=== PATIENT | female | born 1980 ===

== ENCOUNTER 2020-11-13 11:57 | Inpatient (IN) | payer MEDICAID, OTHER ==
[2020-11-13] MEDS ORDERED: LACTATED RINGERS 1,000 ML IV ONE (13:18)
[2020-11-13 13:54] LABS: Bacteria,Urine 1+ /HPF (Negative); Bilirubin,Urine NEG (Negative); Blood,Urine NEG (Negative); Color,Urine Yellow (Yellow); Mucus,Urine 2+ /HPF; Urobilinogen,Urine < 2.0 mg/dL (<2.0)
--- NOTE | 2020-11-13 14:25 | History and Physical Report ---
History of Present Illness Date of examination: 11/13/20 Date of admission: 11/13/20 Chief complaint: elevated blood pressure History of present illness: The patient is a 40-year-old woman 4 para 3-0-0-3 patient. Last menstrual period 04/23/2020 EDC 01/28/2021 ultrasound EDC is 02/13/2021 [place] [facility] [place] approximately 15 visits. She has had 3 other vaginal deliveries she was sent to the hospital because of elevated blood pressure and 2+ protein in her urine at the clinic her blood type was a positive antibody screen was negative hematocrit was 37.7% Pap smear was normal rubella was immune VDRL was negative urine culture was negative hepatitis B was also negative. Her chlamydia and gonorrhea tests were negative. She had a test for cystic fibrosis that was negative. Her Fragile X test was intermediate her MSAFP test was also negative. Her family medical history is positive for diabetes in her mother. She has a history of anemia during . The only time she was hospitalized was for deliveries in the past. Her maternal AFP was negative her fasting glucose was 95 1 hour glucose was 162-hour glucose was 106. Chlamydia and gonorrhea tests were negative HPV in the cervix was not detected Pap smear was normal antibody screen showed no antibodies blood type a positive RPR nonreactive hepatitis B was nonreactive rubella was immune. The patient was sent to the hospital today because of elevated blood pressure and 2+ protein in the urine for evaluation for -induced hypertension. Past History Past Medical History: other (3 vaginal deliveries.) Past Surgical History: no surgical history Family/Genetic History: diabetes Social history: - Obstetrical History Expected Date of Delivery: 01/28/21 Actual Gestation: 29 Week(s) 1 Day(s) : 4 Para: 3 Hx # Term Pregnancies: 3 Number of Pregnancies: 0 Spontaneous Abortions: 0 Induced : 0 Number of Living Children: 3 Medications and Allergies Allergies Allergy/AdvReac Type Severity Reaction Status Date / Time No Known Allergies Allergy Verified 11/13/20 13:18 Active Meds: Active Medications Lactated Ringer's (Lactated Ringers) 1,000 mls @ 125 mls/hr IV DIRECT SKYE Review of Systems All systems: negative - Vital Signs Vital signs: Vital Signs Pulse BP 50 L 146/87 11/13/20 12:43 07/13/21 12:43 Temp Pulse Resp BP Pulse Ox 98.2 F 50 L 20 163/91 99 11/13/20 13:21 11/13/20 14:15 11/13/20 13:21 11/13/20 14:15 11/13/20 13:53 - Physical Exam Breasts: Positive: normal Cardiovascular: Regular rate, Normal S1, Normal S2 Abdomen: Positive: normal appearance, soft, normal bowel sounds. Negative: distention, tenderness Genitourinary (Female): Positive: normal external genitalia, normal perenium Vulva: both: normal Vagina: Positive: normal moisture. Negative: discharge Cervix: Negative: lesion, discharge Uterus: Positive: normal size, enlarged, normal contour Adnexa: both: normal Anus/Rectum: Positive: normal perianal skin, heme negative. Negative: rectal mass, hemorrhoids Extremities: Deep Tendon Reflex Grade: Normal +2 - Obstetrical FHR: category 1 Uterine Contraction Monitor Mode: External Cervical Dilatation: 0 Cervical Effacement Percentage: 50 station: -4 Uterine Contraction Frequency (min): q5m Uterine Contraction Duration: 1 min Uterine Contraction Pattern: Irregular Uterine Tone Measurement Phase: Resting Uterine Contraction Intensity: Mild Results All other labs normal. Assessment and Plan - Patient Problems (1) PIH ( induced hypertension) Current Visit: Yes Status: Acute
[2020-11-13 14:52] LABS: Hematocrit 37.4 % (30.3-42.9); Hemoglobin 12.5 gm/dl (10.1-14.3); Mean Corpuscular HGB Conc 33 % (30-34); Mean Corpuscular Volume 88 fl (79-97); Platelet Count 203 K/mm3 (140-440); Red Blood Count 4.24 M/mm3 (3.65-5.03); Red Cell Distribution Width 14.3 % (13.2-15.2)
[2020-11-13 15:09] LABS: Alanine Aminotransferase 10 units/L (7-56); Uric Acid 4.6 mg/dL (3.5-7.6)
--- NOTE | 2020-11-13 15:57 | Ultrasound Report ---
ULTRASOUND OBSTETRIC LIMITED ULTRASOUND BIOPHYSICAL PROFILE INDICATION / CLINICAL INFORMATION: to assess well-being. COMPARISON: None available. FINDINGS: BREATHING MOVEMENT = 0 GROSS BODY MOVEMENT = 2 TONE = 2 QUALITATIVE AMNIOTIC FLUID VOLUME = 2 TOTAL BIOPHYSICAL SCORE = 6/8 AMNIOTIC FLUID INDEX (cm) = 9.3 PRESENTATION: Transverse. head to maternal right side. HEART RATE (beats per minute): 146 ADDITIONAL FINDINGS: The placenta is grade II and located along the fundus. IMPRESSION: 1. Biophysical Score = 6/8 2. Additional findings as above. Signer Name: Gus Lewis MD Signed: 11/13/2020 3:52 PM Workstation Name: [id number]
[2020-11-13] MEDS: LACTATED RINGERS 1,000 ML IV SCH (18:35)
[2020-11-13] MEDS ORDERED: hydrOXYzine PAMOATE 25 MG CAP PO ONE (19:29)
[2020-11-13] MEDS: hydrALAZINE 20 MG/1 ML INJ IV PRN ×2 (19:54→20:51)
[2020-11-13] MEDS: BETAMET ACET/BETAMET NA PH 6 MG/ML INJ 5 ML MDV IM SCH (21:35)
[2020-11-13] MEDS ORDERED: hydrALAZINE 20 MG/1 ML INJ IV PRN (22:00)
[2020-11-14] MEDS: LACTATED RINGERS 1,000 ML IV SCH ×3 (01:36→22:14)
--- NOTE | 2020-11-14 10:40 | Progress Note ---
Assessment and Plan - Patient Problems (1) PIH ( induced hypertension) Current Visit: Yes Status: Acute Plan to address problem: Patient with PIH at 26 weeks, currently undergoing BP evaluation given elevated BPs in clinic --PIH labs wnl, pending 24H TP. To be completed at 1300 today --Consult APA for further recommendations --celestone x 2, next dose at 2100 --Continue labetolol 300mg BID, titrate as indicated --Continue inpatient management for now --Delivery if indicated for PIH or maternal/ care as indicated Subjective - Subjective Date of service: 11/14/20 Principal diagnosis: preeclampsia Interval history: Patient doing well. Denies labor complaints or PIH symptoms. Concerned about the outcome of . +FM. Objective - Vital Signs Vital Signs: Vital Signs - 12hr 11/13/20 11/13/20 11/13/20 22:40 22:43 22:45 Temperature Pulse Rate 79 83 81 Respiratory Rate Blood Pressure 139/77 O2 Sat by Pulse 97 97 Oximetry 11/13/20 11/13/20 11/13/20 22:50 22:55 23:01 Temperature Pulse Rate 75 79 87 Respiratory Rate Blood Pressure O2 Sat by Pulse 97 97 98 Oximetry 11/13/20 11/13/20 11/13/20 23:05 23:11 23:13 Temperature Pulse Rate 81 78 77 Respiratory Rate Blood Pressure 129/70 O2 Sat by Pulse 98 97 Oximetry 11/13/20 11/13/20 11/13/20 23:16 23:20 23:25 Temperature Pulse Rate 73 74 73 Respiratory Rate Blood Pressure O2 Sat by Pulse 98 98 98 Oximetry 11/13/20 11/13/20 11/13/20 23:30 23:36 23:40 Temperature Pulse Rate 74 75 78 Respiratory Rate Blood Pressure O2 Sat by Pulse 98 98 97 Oximetry 11/13/20 11/13/20 11/13/20 23:43 23:45 23:51 Temperature Pulse Rate 76 81 70 Respiratory Rate Blood Pressure 143/74 O2 Sat by Pulse 98 98 Oximetry 11/13/20 11/14/20 11/14/20 23:56 00:01 00:05 Temperature Pulse Rate 69 67 80 Respiratory Rate Blood Pressure O2 Sat by Pulse 98 98 98 Oximetry 11/14/20 11/14/20 11/14/20 00:11 00:13 00:15 Temperature 96.9 F L Pulse Rate 65 67 Respiratory 18 Rate Blood Pressure 155/74 O2 Sat by Pulse 100 Oximetry 11/14/20 11/14/20 11/14/20 00:16 00:20 00:26 Temperature Pulse Rate 67 65 66 Respiratory Rate Blood Pressure O2 Sat by Pulse 100 100 100 Oximetry 11/14/20 11/14/20 11/14/20 00:30 00:36 00:41 Temperature Pulse Rate 68 62 62 Respiratory Rate Blood Pressure O2 Sat by Pulse 100 100 100 Oximetry 11/14/20 11/14/20 11/14/20 00:43 00:44 00:46 Temperature Pulse Rate 65 62 60 Respiratory Rate Blood Pressure 175/83 162/78 O2 Sat by Pulse 100 Oximetry 11/14/20 11/14/20 11/14/20 00:48 00:51 00:56 Temperature Pulse Rate 65 68 71 Respiratory Rate Blood Pressure 153/75 O2 Sat by Pulse 99 98 Oximetry 11/14/20 11/14/20 11/14/20 01:01 01:06 01:11 Temperature Pulse Rate 70 73 69 Respiratory Rate Blood Pressure O2 Sat by Pulse 97 97 97 Oximetry 11/14/20 11/14/20 11/14/20 01:14 01:16 01:21 Temperature Pulse Rate 65 66 67 Respiratory Rate Blood Pressure 149/71 O2 Sat by Pulse 97 98 Oximetry 11/14/20 11/14/20 11/14/20 01:25 01:31 01:36 Temperature Pulse Rate 64 66 68 Respiratory Rate Blood Pressure O2 Sat by Pulse 98 97 97 Oximetry 11/14/20 11/14/20 11/14/20 01:41 01:43 01:46 Temperature Pulse Rate 68 72 70 Respiratory Rate Blood Pressure 139/68 O2 Sat by Pulse 97 97 Oximetry 11/14/20 11/14/20 11/14/20 01:51 01:56 02:01 Temperature Pulse Rate 72 67 72 Respiratory Rate Blood Pressure O2 Sat by Pulse 97 97 97 Oximetry 11/14/20 11/14/20 11/14/20 02:06 02:10 02:13 Temperature Pulse Rate 69 69 80 Respiratory Rate Blood Pressure 134/75 O2 Sat by Pulse 97 97 Oximetry 11/14/20 11/14/20 11/14/20 02:16 02:21 02:26 Temperature Pulse Rate 72 67 66 Respiratory Rate Blood Pressure O2 Sat by Pulse 97 97 97 Oximetry 11/14/20 11/14/20 11/14/20 02:30 02:36 02:41 Temperature Pulse Rate 69 71 68 Respiratory Rate Blood Pressure O2 Sat by Pulse 97 97 97 Oximetry 11/14/20 11/14/20 11/14/20 02:43 02:45 02:50 Temperature Pulse Rate 75 77 72 Respiratory Rate Blood Pressure 139/69 O2 Sat by Pulse 97 97 Oximetry 11/14/20 11/14/20 11/14/20 02:56 03:01 03:06 Temperature Pulse Rate 67 71 69 Respiratory Rate Blood Pressure O2 Sat by Pulse 97 97 97 Oximetry 11/14/20 11/14/20 11/14/20 03:11 03:13 03:16 Temperature Pulse Rate 68 70 72 Respiratory Rate Blood Pressure 142/75 O2 Sat by Pulse 97 97 Oximetry 11/14/20 11/14/20 11/14/20 03:20 03:26 03:30 Temperature Pulse Rate 72 71 70 Respiratory Rate Blood Pressure O2 Sat by Pulse 97 98 97 Oximetry 11/14/20 11/14/20 11/14/20 03:36 03:41 03:43 Temperature Pulse Rate 91 H 72 76 Respiratory Rate Blood Pressure 128/72 O2 Sat by Pulse 97 97 Oximetry 11/14/20 11/14/20 11/14/20 03:46 03:51 03:55 Temperature Pulse Rate 76 68 76 Respiratory Rate Blood Pressure O2 Sat by Pulse 98 97 97 Oximetry 11/14/20 11/14/20 11/14/20 04:00 04:06 04:11 Temperature Pulse Rate 80 73 80 Respiratory Rate Blood Pressure O2 Sat by Pulse 97 97 98 Oximetry 11/14/20 11/14/20 11/14/20 04:13 04:16 04:21 Temperature Pulse Rate 68 75 69 Respiratory Rate Blood Pressure 133/70 O2 Sat by Pulse 97 98 Oximetry 11/14/20 11/14/20 11/14/20 04:26 04:31 04:36 Temperature Pulse Rate 69 72 78 Respiratory Rate Blood Pressure O2 Sat by Pulse 97 97 97 Oximetry 11/14/20 11/14/20 11/14/20 04:41 04:43 04:46 Temperature Pulse Rate 68 71 69 Respiratory Rate Blood Pressure 133/72 O2 Sat by Pulse 98 98 Oximetry 0711/14/20 11/14/20 04:51 04:56 05:01 Temperature Pulse Rate 65 68 68 Respiratory Rate Blood Pressure O2 Sat by Pulse 98 97 97 Oximetry 11/14/20 11/14/20 11/14/20 05:06 05:11 05:13 Temperature Pulse Rate 70 70 81 Respiratory Rate Blood Pressure 137/74 O2 Sat by Pulse 97 97 Oximetry 11/14/20 11/14/20 11/14/20 05:16 05:21 05:26 Temperature Pulse Rate 70 75 71 Respiratory Rate Blood Pressure O2 Sat by Pulse 97 97 97 Oximetry 11/14/20 11/14/20 11/14/20 05:33 05:34 05:39 Temperature 98.2 F Pulse Rate 66 70 Respiratory 18 Rate Blood Pressure O2 Sat by Pulse 98 97 Oximetry 11/14/20 11/14/20 11/14/20 05:42 05:44 05:49 Temperature Pulse Rate 66 64 69 Respiratory Rate Blood Pressure 143/82 O2 Sat by Pulse 94 97 97 Oximetry 11/14/20 11/14/20 11/14/20 05:54 05:59 06:04 Temperature Pulse Rate 67 68 64 Respiratory Rate Blood Pressure O2 Sat by Pulse 97 96 97 Oximetry 11/14/20 11/14/20 11/14/20 06:09 06:12 06:13 Temperature Pulse Rate 66 63 63 Respiratory Rate Blood Pressure 135/80 O2 Sat by Pulse 97 94 Oximetry 11/14/20 11/14/20 11/14/20 06:14 06:19 06:24 Temperature Pulse Rate 65 62 64 Respiratory Rate Blood Pressure O2 Sat by Pulse 96 97 97 Oximetry 11/14/20 11/14/20 11/14/20 06:29 06:34 06:39 Temperature Pulse Rate 61 62 63 Respiratory Rate Blood Pressure O2 Sat by Pulse 97 97 97 Oximetry 11/14/20 11/14/20 11/14/20 06:43 06:44 06:49 Temperature Pulse Rate 60 62 59 L Respiratory Rate Blood Pressure 145/78 O2 Sat by Pulse 97 97 Oximetry 11/14/20 11/14/20 11/14/20 06:54 06:59 07:04 Temperature Pulse Rate 62 64 58 L Respiratory Rate Blood Pressure O2 Sat by Pulse 97 97 97 Oximetry 11/14/20 11/14/20 11/14/20 07:09 07:12 07:14 Temperature Pulse Rate 62 54 L 61 Respiratory Rate Blood Pressure 140/80 O2 Sat by Pulse 97 98 Oximetry 11/14/20 11/14/20 11/14/20 07:19 07:24 07:29 Temperature 98.1 F Pulse Rate 61 63 58 L Respiratory 16 Rate Blood Pressure O2 Sat by Pulse 98 98 98 Oximetry 11/14/20 11/14/20 11/14/20 07:33 07:39 07:43 Temperature Pulse Rate 56 L 68 57 L Respiratory Rate Blood Pressure 153/86 O2 Sat by Pulse 97 98 Oximetry 11/14/20 11/14/20 11/14/20 07:44 07:49 07:54 Temperature Pulse Rate 57 L 62 75 Respiratory Rate Blood Pressure O2 Sat by Pulse 98 97 97 Oximetry 11/14/20 11/14/20 11/14/20 07:59 08:04 08:09 Temperature Pulse Rate 60 72 55 L Respiratory Rate Blood Pressure O2 Sat by Pulse 97 97 97 Oximetry 11/14/20 11/14/20 11/14/20 08:13 08:14 08:19 Temperature Pulse Rate 62 57 L 84 Respiratory Rate Blood Pressure 176/90 O2 Sat by Pulse 97 98 Oximetry 11/14/20 11/14/20 11/14/20 08:24 08:29 08:34 Temperature Pulse Rate 74 86 82 Respiratory Rate Blood Pressure O2 Sat by Pulse 98 99 98 Oximetry 11/14/20 11/14/20 11/14/20 08:39 08:43 08:44 Temperature Pulse Rate 71 71 62 Respiratory Rate Blood Pressure 171/91 O2 Sat by Pulse 99 99 Oximetry 11/14/20 11/14/20 11/14/20 08:49 08:54 08:59 Temperature Pulse Rate 64 70 70 Respiratory Rate Blood Pressure O2 Sat by Pulse 97 98 98 Oximetry 11/14/20 11/14/20 11/14/20 09:04 09:09 09:13 Temperature Pulse Rate 78 71 72 Respiratory Rate Blood Pressure 152/83 O2 Sat by Pulse 99 98 Oximetry 11/14/20 11/14/20 11/14/20 09:14 09:19 09:24 Temperature Pulse Rate 78 71 69 Respiratory Rate Blood Pressure O2 Sat by Pulse 98 97 98 Oximetry 11/14/20 11/14/20 11/14/20 09:29 09:31 09:34 Temperature Pulse Rate 71 79 77 Respiratory Rate Blood Pressure 152/83 O2 Sat by Pulse 97 99 Oximetry 11/14/20 11/14/20 11/14/20 09:39 09:43 09:49 Temperature Pulse Rate 75 72 73 Respiratory Rate Blood Pressure 147/81 O2 Sat by Pulse 98 98 98 Oximetry 11/14/20 11/14/20 11/14/20 09:54 09:59 10:04 Temperature Pulse Rate 70 68 67 Respiratory Rate Blood Pressure O2 Sat by Pulse 97 97 97 Oximetry 11/14/20 11/14/20 11/14/20 10:09 10:13 10:14 Temperature Pulse Rate 79 73 71 Respiratory Rate Blood Pressure 156/86 O2 Sat by Pulse 98 98 Oximetry 11/14/20 11/14/20 11/14/20 10:19 10:24 10:29 Temperature Pulse Rate 74 73 79 Respiratory Rate Blood Pressure O2 Sat by Pulse 98 98 97 Oximetry 11/14/20 10:34 Temperature Pulse Rate 80 Respiratory Rate Blood Pressure O2 Sat by Pulse 97 Oximetry - Exam Cardiovascular: Regular rate Lungs: Clear to auscultation Abdomen: Present: normal appearance, normal bowel sounds Uterus: Present: fundal height above umbilicus FHR: category 1 Uterine Contraction Monitor Mode: External Uterine Contraction Pattern: Absent Extremities: normal - Labs Labs: Abnormal Labs 11/13/20 14:00 Creatinine 0.3 L Laboratory Results - last 24 hr 11/13/20 11/13/20 11/13/20 14:00 14:00 14:00 WBC 9.4 RBC 4.24 Hgb 12.5 Hct 37.4 MCV 88 MCH 29 MCHC 33 RDW 14.3 Plt Count 203 Creatinine 0.3 L Estimated GFR > 60 Uric Acid 4.6 AST 17 ALT 10 Lactate Dehydrogenase 160 Urine Color Urine Turbidity Urine pH Ur Specific Skipwith Urine Protein Urine Glucose (UA) Urine Ketones Urine Blood Urine Nitrite Urine Bilirubin Urine Urobilinogen Ur Leukocyte Esterase Urine WBC (Auto) Urine RBC (Auto) U Epithel Cells (Auto) Urine Bacteria (Auto) Urine Mucus Blood Type A POSITIVE Antibody Screen Negative 11/13/20 Unknown WBC RBC Hgb Hct MCV MCH MCHC RDW Plt Count Creatinine Estimated GFR Uric Acid AST ALT Lactate Dehydrogenase Urine Color Yellow Urine Turbidity Clear Urine pH 7.0 Ur Specific Skipwith 1.021 Urine Protein 100 mg/dl Urine Glucose (UA) Neg Urine Ketones Neg Urine Blood Neg Urine Nitrite Neg Urine Bilirubin Neg Urine Urobilinogen < 2.0 Ur Leukocyte Esterase Neg Urine WBC (Auto) 1.0 Urine RBC (Auto) 2.0 U Epithel Cells (Auto) 5.0 Urine Bacteria (Auto) 1+ Urine Mucus 2+ Blood Type Antibody Screen
[2020-11-14 14:16] LABS: Creatinine,Urine 41.5 mg/dL (0.1-20.0); Protein/Creatinine Ratio,Urine 0.41
--- NOTE | 2020-11-14 15:16 | Ultrasound Report ---
ULTRASOUND OBSTETRIC LIMITED ULTRASOUND BIOPHYSICAL PROFILE INDICATION / CLINICAL INFORMATION: heart rate deceleration. COMPARISON: Limited OB ultrasound from 11/13/2020. FINDINGS: BREATHING MOVEMENT = 0 GROSS BODY MOVEMENT = 2 TONE = 2 QUALITATIVE AMNIOTIC FLUID VOLUME = 2 TOTAL BIOPHYSICAL SCORE = 6/8 AMNIOTIC FLUID INDEX (cm) = 12.7 PRESENTATION: Transverse. head is located to the maternal right. HEART RATE (beats per minute): 143 ADDITIONAL FINDINGS: Multiple probable uterine fibroids are seen measuring up to 2.9 cm. IMPRESSION: 1. Biophysical Score = 6/8 2. Additional findings as above. Signer Name: Gus Lewis MD Signed: 11/14/2020 3:11 PM Workstation Name: [id number]
--- NOTE | 2020-11-14 18:30 | Consultation ---
History of Present Illness Consult date: 11/14/20 Reason for consult: other (Newly elevated blood pressure) History of present illness: Mrs. Yomaira Walters is a 40-year-old [id number] patient at 26 week by ultrasound with EDC 02/13/2021 seen in consultation following hospital admission for elevated blood pressure and 2+ protein on urine dip at routine visit. Since her admission, she has been noted to have severely elevated blood pressures for which she is now on Labetalol 300 mg BID. She denies any headaches, visual changes, RUQ pain, or nausea. On my evaluation, she denies any additional concerns. This is significant for early and consistent care and Inte rmediate Fragile X carrier screening. Past History Past Medical History: other (3 vaginal deliveries.) Past Surgical History: no surgical history Family/Genetic History: diabetes - Obstetrical History : 4 Medications and Allergies Allergies Allergy/AdvReac Type Severity Reaction Status Date / Time No Known Allergies Allergy Verified 11/13/20 13:18 Home Medications Medication Instructions Recorded Confirmed Last Taken Type No Known Home Medications [No 11/14/20 11/14/20 Unknown History Reported Home Medications] Active Meds: Active Medications Betamethasone Acet/Betameth SodPhos (Betamet Acet/Betamet Na Ph 6 Mg/Ml Inj 5 Ml Mdv) 12 mg IM Q24H SKYE Stop: 11/14/20 22:01 Last Admin: 11/13/20 21:35 Dose: 12 mg Documented by: Hydralazine HCl (Hydralazine 20 Mg/1 Ml Inj) 10 mg IV Q30MIN PRN PRN Reason: Blood Pressure Stop: 11/14/20 23:59 Last Admin: 11/13/20 20:51 Dose: 10 mg Documented by: Lactated Ringer's (Lactated Ringers) 1,000 mls @ 125 mls/hr IV DIRECT SKYE Last Admin: 11/14/20 09:31 Dose: 125 mls/hr Documented by: Labetalol HCl (Labetalol 200 Mg Tab) 300 mg PO BID SKYE Last Admin: 11/14/20 09:31 Dose: 300 mg Documented by: Review of Systems All systems: negative Cardiovascular: high blood pressure - Vital Signs Vital signs: Vital Signs Pulse BP 50 L 146/87 11/13/20 12:43 11/13/20 12:43 Temp Pulse Resp BP Pulse Ox 97.9 F 68 16 169/77 97 11/14/20 17:43 11/14/20 18:23 11/14/20 17:43 11/14/20 18:13 11/14/20 18:23 - Physical Exam Cardiovascular: Regular rate Lungs: Positive: Clear to auscultation Abdomen: Positive: other (Gravid, NT) - Obstetrical FHR: other (140s, + accelerations, occassional variable decelerations) Uterine Contraction Pattern: Absent Results Result Diagrams: 11/13/20 14:00 11/13/20 14:00 Abnormal lab results 11/14/20 Range/Units 13:30 Urine Creatinine 41.5 H (0.1-20.0) mg/dL Ur Total Protein 24 Hr 581.74 H (2-200) mg/dL Urine Total Protein 17 H (5-11.8) mg/dL All other labs normal. Assessment and Plan - Patient Problems (1) PIH ( induced hypertension) Current Visit: Yes Status: Acute Qualifiers: Trimester: second trimester Qualified Code(s): O13.2 - Gestational [-induced] hypertension without significant proteinuria, second trimester Plan to address problem: 24 hour urine protein with 581 mg protein consistent with preeclampsia. Given the severe blood pressure elevations noted on multiple occasions since her admission, she meets criteria for preeclampsia with severe features. Recommend 1. Inpatient care until delivery. Delivery goal is 34 weeks however proceed with delivery for refractory blood pressures not responding to IV antihypertensive treatment, si/sx of HELLP, or any signs of nonreassuring well being 2. Continue Labetalol 300 mg BID. Titrate aggressively as needed given her early gestational age. May also add Procardia as a 2nd agent after maxing out Labetalol in order to prolong safely in the absence of delivery criteria listed above 3. Continue continuous monitoring until decelerations improve, then may modify schedule at the discretion of primary OB provider or TID. Repeat NST tomorrow as today's BPP 6/8 (minus 2 for breathing) 4. Perform serial preeclampsia labs. Repeat 24 hour urine protein is not warranted to evaluate for worsening disease as the diagnosis has been made and worsening protein has not been found to impact outcomes 5. Complete betamethasone course 6. NICU consultation to discuss risks of prematurity 7. Magnesium for neuroprophylaxis prior to delivery if delivery is indicated < 32 weeks 8. Will continue to follow. Please do not hesitate to contact us with any additional questions.
[2020-11-14] MEDS: hydrALAZINE 20 MG/1 ML INJ IV PRN (20:01)
[2020-11-14] MEDS: BETAMET ACET/BETAMET NA PH 6 MG/ML INJ 5 ML MDV IM SCH (21:35)
[2020-11-15] MEDS: LACTATED RINGERS 1,000 ML IV SCH ×2 (07:22→17:01)
--- NOTE | 2020-11-15 07:54 | Progress Note ---
Assessment and Plan - Patient Problems (1) PIH ( induced hypertension) Current Visit: Yes Status: Acute Qualifiers: Trimester: second trimester Qualified Code(s): O13.2 - Gestational [-induced] hypertension without significant proteinuria, second trimester Plan to address problem: KEEP PT ON LABETALOL AND HOSP UNTIL SHE DELIVERS. Subjective Date of service: 11/15/20 Principal diagnosis: preeclampsia Interval history: 27 wks iup with pre-eclampsia . 24 hr urine protein >500mgs.[facility] CONSULTED AND AGREE TO KEP PT HOSP UNTIL SHE DELIVERS. BP STABLE ON MAG. Objective - Constitutional Vitals: Vital Signs - 12hr 11/14/20 11/14/20 11/14/20 19:55 19:59 20:00 Pulse Rate 63 62 65 Blood Pressure 184/87 O2 Sat by Pulse 97 97 Oximetry 11/14/20 11/14/20 11/14/20 20:01 20:05 20:07 Pulse Rate 64 68 Blood Pressure 184/87 168/79 O2 Sat by Pulse 98 Oximetry 11/14/20 11/14/20 11/14/20 20:10 20:13 20:15 Pulse Rate 70 84 87 Blood Pressure 161/83 O2 Sat by Pulse 97 97 Oximetry 11/14/20 11/14/20 11/14/20 20:20 20:25 20:30 Pulse Rate 75 75 73 Blood Pressure O2 Sat by Pulse 97 98 97 Oximetry 11/14/20 11/14/20 11/14/20 20:35 20:40 20:43 Pulse Rate 78 87 79 Blood Pressure 154/79 O2 Sat by Pulse 97 97 Oximetry 11/14/20 11/14/20 11/14/20 20:45 20:50 20:55 Pulse Rate 81 81 80 Blood Pressure O2 Sat by Pulse 98 97 98 Oximetry 11/14/20 11/14/20 11/14/20 21:00 21:05 21:10 Pulse Rate 71 83 79 Blood Pressure O2 Sat by Pulse 98 98 98 Oximetry 11/14/20 11/14/20 11/14/20 21:13 21:19 21:24 Pulse Rate 70 84 72 Blood Pressure 135/74 O2 Sat by Pulse 98 98 Oximetry 11/14/20 11/14/20 11/14/20 21:29 21:34 21:39 Pulse Rate 87 75 77 Blood Pressure O2 Sat by Pulse 98 98 99 Oximetry 11/14/20 11/14/20 11/14/20 21:43 21:44 21:49 Pulse Rate 67 68 70 Blood Pressure 138/73 O2 Sat by Pulse 98 97 Oximetry 11/14/20 11/14/20 11/14/20 21:54 21:59 22:04 Pulse Rate 78 79 72 Blood Pressure O2 Sat by Pulse 98 98 98 Oximetry 11/14/20 11/14/20 11/14/20 22:09 22:14 22:19 Pulse Rate 76 69 74 Blood Pressure 154/76 O2 Sat by Pulse 97 95 98 Oximetry 11/14/20 11/14/20 11/14/20 22:24 22:29 22:34 Pulse Rate 90 72 68 Blood Pressure O2 Sat by Pulse 98 97 97 Oximetry 11/14/20 11/14/20 11/14/20 22:39 22:43 22:44 Pulse Rate 78 67 85 Blood Pressure 135/70 O2 Sat by Pulse 97 96 Oximetry 11/14/20 11/14/20 11/14/20 22:49 22:54 22:59 Pulse Rate 68 63 86 Blood Pressure O2 Sat by Pulse 97 97 97 Oximetry 11/14/20 11/14/20 11/14/20 23:04 23:09 23:13 Pulse Rate 67 70 68 Blood Pressure 151/77 O2 Sat by Pulse 97 96 93 Oximetry 11/14/20 11/14/20 11/14/20 23:14 23:19 23:24 Pulse Rate 70 70 68 Blood Pressure O2 Sat by Pulse 96 96 96 Oximetry 11/14/20 11/14/20 11/14/20 23:29 23:34 23:39 Pulse Rate 67 69 84 Blood Pressure O2 Sat by Pulse 96 96 97 Oximetry 11/14/20 11/14/20 11/14/20 23:43 23:44 23:49 Pulse Rate 62 66 64 Blood Pressure 152/76 O2 Sat by Pulse 97 97 Oximetry 11/14/20 11/14/20 11/15/20 23:54 23:59 00:04 Pulse Rate 66 68 68 Blood Pressure O2 Sat by Pulse 97 97 97 Oximetry 11/15/20 11/15/20 11/15/20 00:09 00:13 00:14 Pulse Rate 73 68 66 Blood Pressure 135/64 O2 Sat by Pulse 98 98 Oximetry 11/15/20 11/15/20 11/15/20 00:19 00:24 00:29 Pulse Rate 66 68 61 Blood Pressure O2 Sat by Pulse 97 97 98 Oximetry 11/15/20 11/15/20 11/15/20 00:34 00:39 00:43 Pulse Rate 72 70 71 Blood Pressure 146/70 O2 Sat by Pulse 95 97 Oximetry 11/15/20 11/15/20 11/15/20 00:44 00:49 00:54 Pulse Rate 69 79 85 Blood Pressure O2 Sat by Pulse 96 97 97 Oximetry 11/15/20 11/15/20 11/15/20 00:59 01:04 01:09 Pulse Rate 72 69 71 Blood Pressure O2 Sat by Pulse 95 97 97 Oximetry 11/15/20 11/15/20 11/15/20 01:13 01:14 01:19 Pulse Rate 70 73 68 Blood Pressure 146/69 O2 Sat by Pulse 98 98 Oximetry 11/15/20 11/15/20 11/15/20 01:24 01:29 01:34 Pulse Rate 68 68 72 Blood Pressure O2 Sat by Pulse 97 97 97 Oximetry 11/15/20 11/15/20 11/15/20 01:39 01:43 01:44 Pulse Rate 68 67 69 Blood Pressure 133/66 O2 Sat by Pulse 96 97 Oximetry 11/15/20 11/15/20 11/15/20 01:49 01:54 01:59 Pulse Rate 84 64 67 Blood Pressure O2 Sat by Pulse 97 96 98 Oximetry 11/15/20 11/15/20 11/15/20 02:04 02:09 02:13 Pulse Rate 69 69 68 Blood Pressure 134/65 O2 Sat by Pulse 97 97 Oximetry 11/15/20 11/15/20 11/15/20 02:14 02:19 02:24 Pulse Rate 64 68 67 Blood Pressure O2 Sat by Pulse 97 97 96 Oximetry 11/15/20 11/15/20 11/15/20 02:29 02:34 02:39 Pulse Rate 66 68 65 Blood Pressure O2 Sat by Pulse 96 96 96 Oximetry 11/15/20 11/15/20 11/15/20 02:42 02:43 02:44 Pulse Rate 64 74 66 Blood Pressure 153/77 O2 Sat by Pulse 94 97 Oximetry 11/15/20 11/15/20 11/15/20 02:49 02:54 02:59 Pulse Rate 64 63 67 Blood Pressure O2 Sat by Pulse 95 95 95 Oximetry 11/15/20 11/15/20 11/15/20 03:04 03:09 03:13 Pulse Rate 60 68 66 Blood Pressure 133/72 O2 Sat by Pulse 96 95 Oximetry 11/15/20 11/15/20 11/15/20 03:14 03:19 03:24 Pulse Rate 68 61 63 Blood Pressure O2 Sat by Pulse 96 96 96 Oximetry 11/15/20 11/15/20 11/15/20 03:29 03:34 03:39 Pulse Rate 65 68 65 Blood Pressure O2 Sat by Pulse 96 96 96 Oximetry 11/15/20 11/15/20 11/15/20 03:43 03:44 04:04 Pulse Rate 65 66 78 Blood Pressure 148/76 O2 Sat by Pulse 93 97 97 Oximetry 11/15/20 11/15/20 11/15/20 04:09 04:13 04:14 Pulse Rate 70 60 59 L Blood Pressure 145/74 O2 Sat by Pulse 96 97 Oximetry 11/15/20 11/15/20 11/15/20 04:19 04:24 04:29 Pulse Rate 69 56 L 60 Blood Pressure O2 Sat by Pulse 97 97 97 Oximetry 11/15/20 11/15/20 11/15/20 04:34 04:39 04:43 Pulse Rate 61 59 L 59 L Blood Pressure 146/74 O2 Sat by Pulse 98 96 Oximetry 11/15/20 11/15/20 11/15/20 04:44 04:49 04:54 Pulse Rate 61 62 60 Blood Pressure O2 Sat by Pulse 96 96 95 Oximetry 11/15/20 11/15/20 11/15/20 04:59 05:04 05:09 Pulse Rate 69 58 L 75 Blood Pressure O2 Sat by Pulse 95 95 94 Oximetry 11/15/20 11/15/20 11/15/20 05:13 05:14 05:19 Pulse Rate 60 60 59 L Blood Pressure 156/78 O2 Sat by Pulse 96 94 Oximetry 11/15/20 11/15/20 11/15/20 05:24 05:29 05:34 Pulse Rate 61 60 58 L Blood Pressure O2 Sat by Pulse 94 96 96 Oximetry 11/15/20 11/15/20 11/15/20 05:39 05:41 05:43 Pulse Rate 60 58 L 62 Blood Pressure 162/78 O2 Sat by Pulse 96 94 Oximetry 11/15/20 11/15/20 11/15/20 05:44 05:49 05:54 Pulse Rate 68 55 L 60 Blood Pressure O2 Sat by Pulse 97 96 96 Oximetry 11/15/20 11/15/20 11/15/20 05:59 06:04 06:09 Pulse Rate 56 L 56 L 60 Blood Pressure O2 Sat by Pulse 97 96 96 Oximetry 11/15/20 11/15/20 11/15/20 06:13 06:14 06:19 Pulse Rate 64 59 L 57 L Blood Pressure 170/83 O2 Sat by Pulse 94 97 96 Oximetry 11/15/20 11/15/20 11/15/20 06:24 06:29 06:34 Pulse Rate 54 L 61 66 Blood Pressure O2 Sat by Pulse 97 95 93 Oximetry 11/15/20 11/15/20 11/15/20 06:39 06:43 06:44 Pulse Rate 56 L 57 L 61 Blood Pressure 173/80 O2 Sat by Pulse 98 97 Oximetry 11/15/20 11/15/20 11/15/20 06:49 06:54 06:59 Pulse Rate 56 L 57 L 60 Blood Pressure O2 Sat by Pulse 96 97 96 Oximetry 11/15/20 11/15/20 11/15/20 07:04 07:09 07:13 Pulse Rate 59 L 62 58 L Blood Pressure 155/74 O2 Sat by Pulse 97 97 Oximetry 11/15/20 11/15/20 11/15/20 07:14 07:19 07:23 Pulse Rate 61 57 L 60 Blood Pressure 155/74 O2 Sat by Pulse 97 97 Oximetry 11/15/20 11/15/20 11/15/20 07:24 07:29 07:34 Pulse Rate 58 L 63 62 Blood Pressure O2 Sat by Pulse 97 97 97 Oximetry 11/15/20 11/15/20 11/15/20 07:39 07:43 07:44 Pulse Rate 57 L 56 L 59 L Blood Pressure 169/81 O2 Sat by Pulse 98 92 96 Oximetry 11/15/20 07:49 Pulse Rate 60 Blood Pressure O2 Sat by Pulse 97 Oximetry - Labs CBC & Chem 7: 11/13/20 14:00 11/13/20 14:00 Labs: Abnormal lab results 11/14/20 Range/Units 13:30 Urine Creatinine 41.5 H (0.1-20.0) mg/dL Ur Total Protein 24 Hr 581.74 H (2-200) mg/dL Urine Total Protein 17 H (5-11.8) mg/dL Medications & Allergies - Medications Allergies/Adverse Reactions: Allergies No Known Allergies Allergy (Verified 11/13/20 13:18) Home Medications: Home Medications Medication Instructions Recorded Confirmed Last Taken Type No Known Home Medications [No 11/14/20 11/14/20 Unknown History Reported Home Medications] Active Medications: Generic Name Dose Route Start Last Admin Trade Name Freq PRN Reason Stop Dose Admin Lactated Ringer's 1,000 mls @ 125 mls/hr 11/13/20 14:15 11/15/20 07:22 Lactated Ringers IV 125 mls/hr DIRECT SKYE Administration Labetalol HCl 300 mg 11/14/20 21:00 11/15/20 07:23 Labetalol 100 Mg Tab PO 300 mg TID SKYE Administration
[2020-11-15] MEDS: hydrALAZINE 20 MG/1 ML INJ IV PRN ×4 (08:30→23:47)
--- NOTE | 2020-11-15 13:12 | Consultation ---
History of Present Illness Consult date: 11/15/20 Requesting physician: YANN ROSENBAUM JR History of present illness: Mrs. Yomaira Walters is a 40-year-old [id number] patient at 27 1/7 weeks sent in for Elevated BP's Denies H/O CHTN S/P Steroids BP's spiked again this am 218/101, 223/104 per Nurse Rosy - IV Hydralazine administered - BP's now improved - Currently on Labetalol 300 TID Denies NIETO's [place] Reported swelling in hands and face now improved Recent BP's 150/80's latest 140/74 Abd obese No RUQ tenderness Ext trace edema DTR No clonus PIH labs AST/ALT at 17/10 Creat at 0.3 H/H at 12/37 Plts at 203 24 Hour Urine Prot at 581 [facility] (11/15/20) US EFW 938 grams - 16% with AC at 16% BPP 10/09 (-2 for breathing ) Impression 1. Escobar IUP at 27 1/7 weeks 2. Preeclampsia with Labile BP's 3. SGA - EFW at 16% 4. Obesity 5. AMA Recommendations 1. Please see [facility] Recommendations from 11/14/20 2. Aim for delivery at 34 weeks - 3. NICU consult if not done 4. Steroids complete 5. Mg for S/S of severe preeclampsia and for Neuroprophylaxis 6. BPP twice per week 7. PIH labs Twice per week 8. US for EFW q 2 to 3 weeks 9. Please confirm if patient has done 1 hour GTT if not wait 7 days after last dose steroids but obtain HbA1c 10. IV Labetalol or Hydralazine for BP's Sys > 160 or baez > 110 Past History Past Medical History: other (3 vaginal deliveries.) Past Surgical History: no surgical history Family/Genetic History: diabetes - Obstetrical History : 4 Medications and Allergies Allergies Allergy/AdvReac Type Severity Reaction Status Date / Time No Known Allergies Allergy Verified 11/13/20 13:18 Home Medications Medication Instructions Recorded Confirmed Last Taken Type No Known Home Medications [No 11/14/20 11/14/20 Unknown History Reported Home Medications] Active Meds: Active Medications Hydralazine HCl (Hydralazine 20 Mg/1 Ml Inj) 10 mg IV Q30MIN PRN PRN Reason: Blood Pressure Last Admin: 11/15/20 08:30 Dose: 10 mg Documented by: Lactated Ringer's (Lactated Ringers) 1,000 mls @ 125 mls/hr IV DIRECT SKYE Last Admin: 11/15/20 07:22 Dose: 125 mls/hr Documented by: Labetalol HCl (Labetalol 100 Mg Tab) 300 mg PO TID SKYE Last Admin: 11/15/20 07:23 Dose: 300 mg Documented by: - Vital Signs Vital signs: Vital Signs Pulse BP 50 L 146/87 11/13/20 12:43 11/13/20 12:43 Temp Pulse Resp BP Pulse Ox 98.5 F 64 20 137/69 97 11/14/20 19:13 11/15/20 13:00 11/14/20 19:13 11/15/20 12:52 11/15/20 13:00 Results Result Diagrams: 11/13/20 14:00 11/13/20 14:00 Abnormal lab results 11/14/20 Range/Units 13:30 Urine Creatinine 41.5 H (0.1-20.0) mg/dL Ur Total Protein 24 Hr 581.74 H (2-200) mg/dL Urine Total Protein 17 H (5-11.8) mg/dL All other labs normal.
--- NOTE | 2020-11-15 17:25 | Ultrasound Report ---
ULTRASOUND OBSTETRIC LIMITED ULTRASOUND BIOPHYSICAL PROFILE INDICATION / CLINICAL INFORMATION: presenting part and weight. COMPARISON: 11/14/2020 FINDINGS: BREATHING MOVEMENT = 0 GROSS BODY MOVEMENT = 2 TONE = 2 QUALITATIVE AMNIOTIC FLUID VOLUME = 2 TOTAL BIOPHYSICAL SCORE = 6/8 HEART RATE (beats per minute): 148 Biparietal Diameter = 6.7 cm = 27.0 weeks.days Head Circumference = 25.1 cm = 27.2 weeks.days Abdominal Circumference = 21.7 cm = 26.1 weeks.days Femur Length = 4.9 cm = 26.3 weeks.days Average Ultrasound Age (AUA) = 26.5 weeks.days Estimated Weight in grams (if calculated): 938 PRESENTATION: Breech. ADDITIONAL FINDINGS: None. IMPRESSION: 1. Biophysical Score = 6/8 2. Breech presentation Signer Name: Ed Rob MD Signed: 11/15/2020 5:20 PM Workstation Name: [id number]
--- NOTE | 2020-11-15 17:33 | Ultrasound Report ---
ULTRASOUND OB VELOCIMETRY UMBILICAL ARTERY INDICATION: Growth restriction. TECHNIQUE: Transabdominal ultrasound with color and spectral Doppler imaging COMPARISON: Follow-up OB ultrasound performed earlier today. FINDINGS: 3 segments of the umbilical cord were evaluated. heart rate measures 148 bpm. The spectral wave forms are persistent with no end diastolic flow seen along loop 1. The pulsativity index is 2.3. Average S/D ratio measures: 3.4 Average resistive index measures: 0.7 Signer Name: Gus Lewis MD Signed: 11/15/2020 5:29 PM Workstation Name: [id number]
[2020-11-16] MEDS: ACETAMINOPHEN 500 MG TAB PO PRN ×3 (00:18→20:30)
[2020-11-16] MEDS: hydrALAZINE 20 MG/1 ML INJ IV PRN ×4 (02:00→16:34)
[2020-11-16] MEDS ORDERED: MAGNESIUM SULFATE 4 GM/100 ML BAG IV ONE (08:30)
--- NOTE | 2020-11-16 08:44 | Progress Note ---
Assessment and Plan - Patient Problems (1) Preeclampsia Current Visit: Yes Status: Acute Qualifiers: Trimester: second trimester Qualified Code(s): O14.92 - Unspecified pre- eclampsia, second trimester Plan to address problem: Twice weekly PIH labs and BPP Doppler of umbilical artery with absent end-diastolic flow in loop 1; will discuss with [facility] Mag sulfate for neuro prophylaxis Continue labetalol p.o. Delivery for maternal/ indication Kalpana Yen MD (2) PIH ( induced hypertension) Current Visit: Yes Status: Acute Qualifiers: Trimester: second trimester Qualified Code(s): O13.2 - Gestational [-induced] hypertension without significant proteinuria, second trimester Subjective - Subjective Date of service: 11/16/20 Principal diagnosis: preeclampsia Objective - Vital Signs Vital Signs: Vital Signs - 12hr 11/15/20 11/15/20 11/15/20 20:40 20:45 20:50 Temperature Pulse Rate 68 66 68 Respiratory Rate Blood Pressure 160/83 O2 Sat by Pulse 97 96 97 Oximetry 11/15/20 11/15/20 11/15/20 20:55 21:00 21:05 Temperature Pulse Rate 67 63 64 Respiratory Rate Blood Pressure O2 Sat by Pulse 97 98 97 Oximetry 11/15/20 11/15/20 11/15/20 21:10 21:15 21:20 Temperature Pulse Rate 77 61 65 Respiratory Rate Blood Pressure 159/78 O2 Sat by Pulse 98 97 97 Oximetry 11/15/20 11/15/20 11/15/20 21:25 21:30 21:35 Temperature Pulse Rate 64 72 64 Respiratory Rate Blood Pressure O2 Sat by Pulse 98 98 98 Oximetry 11/15/20 11/15/20 11/15/20 21:40 21:45 21:50 Temperature Pulse Rate 65 62 68 Respiratory Rate Blood Pressure 156/81 O2 Sat by Pulse 98 96 97 Oximetry 11/15/20 11/15/20 11/15/20 21:55 22:00 22:05 Temperature Pulse Rate 80 61 78 Respiratory Rate Blood Pressure O2 Sat by Pulse 97 97 97 Oximetry 11/15/20 11/15/20 11/15/20 22:10 22:15 22:20 Temperature Pulse Rate 61 68 65 Respiratory Rate Blood Pressure 181/91 O2 Sat by Pulse 98 94 97 Oximetry 11/15/20 11/15/20 11/15/20 22:25 22:30 22:35 Temperature Pulse Rate 64 62 64 Respiratory Rate Blood Pressure O2 Sat by Pulse 97 97 97 Oximetry 11/15/20 11/15/20 11/15/20 22:40 22:43 22:45 Temperature Pulse Rate 74 62 64 Respiratory Rate Blood Pressure 139/66 O2 Sat by Pulse 97 97 Oximetry 11/15/20 11/15/20 11/15/20 22:50 22:55 22:58 Temperature Pulse Rate 65 72 60 Respiratory Rate Blood Pressure 141/66 O2 Sat by Pulse 98 97 Oximetry 11/15/20 11/15/20 11/15/20 23:00 23:05 23:10 Temperature Pulse Rate 63 63 63 Respiratory Rate Blood Pressure O2 Sat by Pulse 97 97 97 Oximetry 11/15/20 11/15/20 11/15/20 23:13 23:15 23:20 Temperature Pulse Rate 64 62 62 Respiratory Rate Blood Pressure 152/70 O2 Sat by Pulse 97 97 Oximetry 11/15/20 11/15/20 11/15/20 23:25 23:29 23:30 Temperature Pulse Rate 62 69 64 Respiratory Rate Blood Pressure 174/76 O2 Sat by Pulse 97 98 Oximetry 11/15/20 11/15/20 11/15/20 23:35 23:40 23:43 Temperature Pulse Rate 67 67 68 Respiratory Rate Blood Pressure 164/74 O2 Sat by Pulse 97 97 Oximetry 11/15/20 11/15/20 11/15/20 23:45 23:47 23:50 Temperature Pulse Rate 67 69 71 Respiratory Rate Blood Pressure 164/74 O2 Sat by Pulse 97 97 Oximetry 11/15/20 11/15/20 11/16/20 23:55 23:58 00:00 Temperature Pulse Rate 69 68 70 Respiratory Rate Blood Pressure 149/67 O2 Sat by Pulse 97 97 Oximetry 11/16/20 11/16/20 11/16/20 00:05 00:10 00:15 Temperature Pulse Rate 69 69 77 Respiratory Rate Blood Pressure O2 Sat by Pulse 97 97 96 Oximetry 11/16/20 11/16/20 11/16/20 00:20 00:25 00:28 Temperature Pulse Rate 91 H 67 64 Respiratory Rate Blood Pressure 141/69 O2 Sat by Pulse 97 100 Oximetry 11/16/20 11/16/20 11/16/20 00:30 00:35 00:40 Temperature Pulse Rate 67 66 70 Respiratory Rate Blood Pressure O2 Sat by Pulse 99 100 100 Oximetry 11/16/20 11/16/20 11/16/20 00:43 00:45 00:50 Temperature Pulse Rate 66 71 67 Respiratory Rate Blood Pressure 141/70 O2 Sat by Pulse 100 100 Oximetry 11/16/20 11/16/20 11/16/20 00:55 00:58 01:00 Temperature Pulse Rate 70 63 68 Respiratory Rate Blood Pressure 149/74 O2 Sat by Pulse 100 100 Oximetry 11/16/20 11/16/20 11/16/20 01:05 01:10 01:14 Temperature Pulse Rate 67 66 66 Respiratory Rate Blood Pressure 157/75 O2 Sat by Pulse 100 100 Oximetry 11/16/20 11/16/20 11/16/20 01:15 01:20 01:25 Temperature Pulse Rate 61 70 69 Respiratory Rate Blood Pressure O2 Sat by Pulse 99 99 100 Oximetry 11/16/20 11/16/20 11/16/20 01:29 01:30 01:35 Temperature Pulse Rate 64 64 73 Respiratory Rate Blood Pressure 184/88 O2 Sat by Pulse 99 99 Oximetry 11/16/20 11/16/20 11/16/20 01:40 01:43 01:45 Temperature Pulse Rate 71 63 63 Respiratory Rate Blood Pressure 171/86 O2 Sat by Pulse 99 100 Oximetry 11/16/20 11/16/20 11/16/20 01:50 01:55 01:56 Temperature 98.3 F Pulse Rate 64 64 Respiratory 16 Rate Blood Pressure 185/94 O2 Sat by Pulse 100 98 Oximetry 11/16/20 11/16/20 11/16/20 02:00 02:05 02:10 Temperature Pulse Rate 71 75 72 Respiratory Rate Blood Pressure 185/94 O2 Sat by Pulse 96 94 94 Oximetry 11/16/20 11/16/20 11/16/20 02:14 02:15 02:20 Temperature Pulse Rate 71 70 71 Respiratory Rate Blood Pressure 150/86 O2 Sat by Pulse 94 94 Oximetry 11/16/20 11/16/20 11/16/20 02:25 02:26 02:28 Temperature Pulse Rate 71 76 71 Respiratory Rate Blood Pressure 146/81 O2 Sat by Pulse 95 94 Oximetry 11/16/20 11/16/20 11/16/20 02:30 02:35 02:36 Temperature Pulse Rate 76 76 72 Respiratory Rate Blood Pressure O2 Sat by Pulse 92 93 94 Oximetry 11/16/20 11/16/20 11/16/20 02:40 02:42 02:43 Temperature Pulse Rate 77 71 70 Respiratory Rate Blood Pressure 140/78 O2 Sat by Pulse 94 94 Oximetry 11/16/20 11/16/20 11/16/20 02:45 02:48 03:14 Temperature Pulse Rate 89 76 65 Respiratory Rate Blood Pressure 168/92 O2 Sat by Pulse 94 94 Oximetry 11/16/20 11/16/20 11/16/20 03:22 03:28 03:44 Temperature Pulse Rate 68 63 61 Respiratory Rate Blood Pressure 148/79 150/80 164/83 O2 Sat by Pulse Oximetry 11/16/20 11/16/20 11/16/20 03:59 04:07 04:24 Temperature Pulse Rate 60 60 81 Respiratory Rate Blood Pressure 180/86 180/86 164/81 O2 Sat by Pulse Oximetry 11/16/20 11/16/20 11/16/20 04:25 04:40 04:55 Temperature Pulse Rate 65 65 65 Respiratory Rate Blood Pressure 164/81 160/86 159/86 O2 Sat by Pulse Oximetry 11/16/20 11/16/20 11/16/20 05:10 05:25 05:42 Temperature Pulse Rate 68 70 60 Respiratory Rate Blood Pressure 152/82 169/86 148/70 O2 Sat by Pulse 99 Oximetry 11/16/20 11/16/20 11/16/20 05:47 05:52 05:57 Temperature Pulse Rate 59 L 61 63 Respiratory Rate Blood Pressure O2 Sat by Pulse 99 99 99 Oximetry 11/16/20 11/16/20 11/16/20 06:02 06:07 06:12 Temperature Pulse Rate 62 63 64 Respiratory Rate Blood Pressure O2 Sat by Pulse 99 99 99 Oximetry 11/16/20 11/16/20 11/16/20 06:17 06:22 06:27 Temperature Pulse Rate 69 67 71 Respiratory Rate Blood Pressure O2 Sat by Pulse 99 99 99 Oximetry 11/16/20 11/16/20 11/16/20 06:32 06:37 06:42 Temperature Pulse Rate 68 69 68 Respiratory Rate Blood Pressure O2 Sat by Pulse 99 100 100 Oximetry 11/16/20 11/16/20 11/16/20 06:45 06:47 06:49 Temperature Pulse Rate 68 66 65 Respiratory Rate Blood Pressure 197/95 177/86 O2 Sat by Pulse 100 Oximetry 11/16/20 11/16/20 11/16/20 06:50 06:52 06:57 Temperature Pulse Rate 68 70 Respiratory Rate Blood Pressure 177/86 O2 Sat by Pulse 100 99 Oximetry 11/16/20 11/16/20 11/16/20 07:02 07:07 07:10 Temperature Pulse Rate 70 69 70 Respiratory Rate Blood Pressure 148/76 O2 Sat by Pulse 99 99 Oximetry 11/16/20 11/16/20 11/16/20 07:12 07:17 07:22 Temperature Pulse Rate 69 68 66 Respiratory Rate Blood Pressure O2 Sat by Pulse 99 99 99 Oximetry 11/16/20 11/16/20 11/16/20 07:25 07:27 07:32 Temperature Pulse Rate 68 68 65 Respiratory Rate Blood Pressure 151/80 O2 Sat by Pulse 99 99 Oximetry 11/16/20 11/16/20 11/16/20 07:37 07:40 07:42 Temperature Pulse Rate 67 71 66 Respiratory Rate Blood Pressure 160/82 O2 Sat by Pulse 99 99 Oximetry 11/16/20 11/16/20 11/16/20 07:47 07:52 07:55 Temperature Pulse Rate 67 78 72 Respiratory Rate Blood Pressure 158/86 O2 Sat by Pulse 99 96 94 Oximetry 11/16/20 11/16/20 11/16/20 08:13 08:18 08:23 Temperature Pulse Rate 74 70 77 Respiratory Rate Blood Pressure O2 Sat by Pulse 96 97 96 Oximetry 11/16/20 11/16/20 11/16/20 08:25 08:28 08:33 Temperature Pulse Rate 71 70 72 Respiratory Rate Blood Pressure 150/82 O2 Sat by Pulse 94 96 95 Oximetry 11/16/20 08:38 Temperature Pulse Rate 68 Respiratory Rate Blood Pressure O2 Sat by Pulse 96 Oximetry - Labs Labs: Abnormal Labs 11/13/20 11/14/20 11/16/20 14:00 13:30 06:14 Creatinine 0.3 L POC Glucose 119 H Urine Creatinine 41.5 H Ur Total Protein 24 Hr 581.74 H Urine Total Protein 17 H Laboratory Results - last 24 hr 11/15/20 11/16/20 09:06 06:14 POC Glucose 119 H Coronavirus (PCR) Negative
[2020-11-16] MEDS: LACTATED RINGERS 1,000 ML IV SCH (09:06)
[2020-11-16] MEDS: MAGNESIUM SULFATE 40GM/1000ML 40 GM/1,000 ML BAG IV SCH (09:06)
[2020-11-16 11:34] LABS: Alanine Aminotransferase 39 units/L (7-56); Hematocrit 33.2 % (30.3-42.9); Mean Corpuscular HGB Conc 33 % (30-34); Mean Corpuscular Volume 89 fl (79-97); Platelet Count 165 K/mm3 (140-440); Red Blood Count 3.73 M/mm3 (3.65-5.03); Red Cell Distribution Width 14.7 % (13.2-15.2); Uric Acid 4.4 mg/dL (3.5-7.6)
--- NOTE | 2020-11-16 14:11 | Progress Note ---
Assessment and Plan - Patient Problems (1) PIH ( induced hypertension) Current Visit: Yes Status: Acute Qualifiers: Trimester: second trimester Qualified Code(s): O13.2 - Gestational [-induced] hypertension without significant proteinuria, second trimester Plan to address problem: s/p BMZ course and NICU consult Continue continuous monitoring for now Low threshold for delivery with nonreassuring heart tones Recommend treatment for any severe elevations and recheck after 20 minutes. If BP still severe range, treat for a 2nd time. If > 2 consecutive doses are requi red, proceed with delivery as she is refractory to medications in the setting of Pre-E with severe features Repeat preeclampsia labs tomorrow or with persistent severe ranges this evening. I suspect she may begin to experience progressive worsening of labs requiring delivery Monitor I&Os Please give Mag for neuroprophylaxis prior to delivery and following delivery for seizure prophylaxis Subjective - Subjective Date of service: 11/16/20 Principal diagnosis: preeclampsia Interval history: Mrs. Yomaira Walters is a 40-year-old [id number] patient at 27w 2d admitted for preeclampsia. She continues to have severe elevations overnight Objective - Vital Signs Vital Signs: Vital Signs - 12hr 11/16/20 11/16/20 11/16/20 02:10 02:14 02:15 Pulse Rate 72 71 70 Blood Pressure 150/86 O2 Sat by Pulse 94 94 Oximetry 11/16/20 11/16/20 11/16/20 02:20 02:25 02:26 Pulse Rate 71 71 76 Blood Pressure O2 Sat by Pulse 94 95 94 Oximetry 11/16/20 11/16/20 11/16/20 02:28 02:30 02:35 Pulse Rate 71 76 76 Blood Pressure 146/81 O2 Sat by Pulse 92 93 Oximetry 11/16/20 11/16/20 11/16/20 02:36 02:40 02:42 Pulse Rate 72 77 71 Blood Pressure O2 Sat by Pulse 94 94 94 Oximetry 11/16/20 11/16/20 11/16/20 02:43 02:45 02:48 Pulse Rate 70 89 76 Blood Pressure 140/78 O2 Sat by Pulse 94 94 Oximetry 11/16/20 11/16/20 11/16/20 03:14 03:22 03:28 Pulse Rate 65 68 63 Blood Pressure 168/92 148/79 150/80 O2 Sat by Pulse Oximetry 11/16/20 11/16/20 11/16/20 03:44 03:59 04:07 Pulse Rate 61 60 60 Blood Pressure 164/83 180/86 180/86 O2 Sat by Pulse Oximetry 11/16/20 11/16/20 11/16/20 04:24 04:25 04:40 Pulse Rate 81 65 65 Blood Pressure 164/81 164/81 160/86 O2 Sat by Pulse Oximetry 11/16/20 11/16/20 11/16/20 04:55 05:10 05:25 Pulse Rate 65 68 70 Blood Pressure 159/86 152/82 169/86 O2 Sat by Pulse Oximetry 11/16/20 11/16/20 11/16/20 05:42 05:47 05:52 Pulse Rate 60 59 L 61 Blood Pressure 148/70 O2 Sat by Pulse 99 99 99 Oximetry 11/16/20 11/16/20 11/16/20 05:57 06:02 06:07 Pulse Rate 63 62 63 Blood Pressure O2 Sat by Pulse 99 99 99 Oximetry 11/16/20 11/16/20 11/16/20 06:12 06:17 06:22 Pulse Rate 64 69 67 Blood Pressure O2 Sat by Pulse 99 99 99 Oximetry 11/16/20 11/16/20 11/16/20 06:27 06:32 06:37 Pulse Rate 71 68 69 Blood Pressure O2 Sat by Pulse 99 99 100 Oximetry 11/16/20 11/16/20 11/16/20 06:42 06:45 06:47 Pulse Rate 68 68 66 Blood Pressure 197/95 O2 Sat by Pulse 100 100 Oximetry 11/16/20 11/16/20 11/16/20 06:49 06:50 06:52 Pulse Rate 65 68 Blood Pressure 177/86 177/86 O2 Sat by Pulse 100 Oximetry 11/16/20 11/16/20 11/16/20 06:57 07:02 07:07 Pulse Rate 70 70 69 Blood Pressure O2 Sat by Pulse 99 99 99 Oximetry 11/16/20 11/16/20 11/16/20 07:10 07:12 07:17 Pulse Rate 70 69 68 Blood Pressure 148/76 O2 Sat by Pulse 99 99 Oximetry 11/16/20 11/16/20 11/16/20 07:22 07:25 07:27 Pulse Rate 66 68 68 Blood Pressure 151/80 O2 Sat by Pulse 99 99 Oximetry 11/16/20 11/16/20 11/16/20 07:32 07:37 07:40 Pulse Rate 65 67 71 Blood Pressure 160/82 O2 Sat by Pulse 99 99 Oximetry 11/16/20 11/16/20 11/16/20 07:42 07:47 07:52 Pulse Rate 66 67 78 Blood Pressure O2 Sat by Pulse 99 99 96 Oximetry 11/16/20 11/16/20 11/16/20 07:55 08:13 08:18 Pulse Rate 72 74 70 Blood Pressure 158/86 O2 Sat by Pulse 94 96 97 Oximetry 11/16/20 11/16/20 11/16/20 08:23 08:25 08:28 Pulse Rate 77 71 70 Blood Pressure 150/82 O2 Sat by Pulse 96 94 96 Oximetry 11/16/20 11/16/20 11/16/20 08:33 08:38 08:43 Pulse Rate 72 68 69 Blood Pressure O2 Sat by Pulse 95 96 96 Oximetry 11/16/20 11/16/20 11/16/20 08:48 08:53 08:56 Pulse Rate 73 76 71 Blood Pressure 148/79 O2 Sat by Pulse 95 95 Oximetry 11/16/20 11/16/20 11/16/20 08:58 08:59 09:03 Pulse Rate 76 79 74 Blood Pressure O2 Sat by Pulse 94 94 94 Oximetry 11/16/20 11/16/20 11/16/20 09:07 09:08 09:13 Pulse Rate 77 77 76 Blood Pressure O2 Sat by Pulse 94 94 94 Oximetry 11/16/20 11/16/20 11/16/20 09:14 09:18 09:21 Pulse Rate 75 76 76 Blood Pressure O2 Sat by Pulse 94 94 94 Oximetry 11/16/20 11/16/20 11/16/20 09:23 09:26 09:27 Pulse Rate 71 71 75 Blood Pressure 138/78 O2 Sat by Pulse 95 94 Oximetry 11/16/20 11/16/20 11/16/20 09:28 09:33 09:38 Pulse Rate 74 75 71 Blood Pressure O2 Sat by Pulse 95 96 95 Oximetry 11/16/20 11/16/20 11/16/20 09:43 09:48 09:53 Pulse Rate 72 72 70 Blood Pressure O2 Sat by Pulse 95 95 96 Oximetry 11/16/20 11/16/20 11/16/20 09:56 09:58 10:03 Pulse Rate 65 64 62 Blood Pressure 160/84 O2 Sat by Pulse 96 97 Oximetry 11/16/20 11/16/20 11/16/20 10:08 10:13 10:18 Pulse Rate 63 66 65 Blood Pressure O2 Sat by Pulse 97 96 96 Oximetry 11/16/20 11/16/20 11/16/20 10:23 10:25 10:28 Pulse Rate 63 65 65 Blood Pressure 164/88 O2 Sat by Pulse 97 98 Oximetry 11/16/20 11/16/20 11/16/20 10:33 10:38 10:43 Pulse Rate 69 62 65 Blood Pressure O2 Sat by Pulse 96 98 96 Oximetry 11/16/20 11/16/20 11/16/20 10:48 10:53 10:56 Pulse Rate 63 64 61 Blood Pressure 156/84 O2 Sat by Pulse 96 96 Oximetry 11/16/20 11/16/20 11/16/20 10:58 11:03 11:08 Pulse Rate 60 69 68 Blood Pressure O2 Sat by Pulse 98 97 97 Oximetry 11/16/20 11/16/20 11/16/20 11:13 11:18 11:23 Pulse Rate 69 73 71 Blood Pressure O2 Sat by Pulse 96 98 97 Oximetry 11/16/20 11/16/20 11/16/20 11:26 11:28 11:33 Pulse Rate 67 68 75 Blood Pressure 159/83 O2 Sat by Pulse 96 98 Oximetry 11/16/20 11/16/20 11/16/20 11:38 11:43 11:48 Pulse Rate 65 67 67 Blood Pressure O2 Sat by Pulse 96 96 96 Oximetry 11/16/20 11/16/20 11/16/20 11:53 11:55 11:56 Pulse Rate 68 66 70 Blood Pressure 159/84 O2 Sat by Pulse 96 94 Oximetry 11/16/20 11/16/20 11/16/20 11:58 12:03 12:08 Pulse Rate 69 68 81 Blood Pressure O2 Sat by Pulse 97 98 97 Oximetry 11/16/20 11/16/20 11/16/20 12:13 12:18 12:23 Pulse Rate 71 72 80 Blood Pressure O2 Sat by Pulse 97 97 97 Oximetry 11/16/20 11/16/20 11/16/20 12:25 12:28 12:33 Pulse Rate 70 67 69 Blood Pressure 149/84 O2 Sat by Pulse 97 97 Oximetry 11/16/20 11/16/20 11/16/20 12:38 12:43 12:48 Pulse Rate 68 71 71 Blood Pressure O2 Sat by Pulse 97 97 97 Oximetry 11/16/20 11/16/20 11/16/20 12:53 12:55 12:58 Pulse Rate 74 75 75 Blood Pressure 140/79 O2 Sat by Pulse 97 96 Oximetry 11/16/20 11/16/20 11/16/20 13:03 13:08 13:13 Pulse Rate 76 76 81 Blood Pressure O2 Sat by Pulse 96 97 98 Oximetry 11/16/20 11/16/20 11/16/20 13:18 13:23 13:25 Pulse Rate 76 76 78 Blood Pressure 136/81 O2 Sat by Pulse 97 97 Oximetry 11/16/20 11/16/20 11/16/20 13:28 13:33 13:38 Pulse Rate 74 81 70 Blood Pressure O2 Sat by Pulse 97 98 96 Oximetry 11/16/20 11/16/20 11/16/20 13:43 13:48 13:53 Pulse Rate 71 69 66 Blood Pressure O2 Sat by Pulse 96 96 96 Oximetry 11/16/20 11/16/20 11/16/20 13:56 13:58 14:03 Pulse Rate 65 65 67 Blood Pressure 148/83 O2 Sat by Pulse 97 96 Oximetry - Exam Cardiovascular: Regular rate, Normal S1, Normal S2 Lungs: Clear to auscultation Abdomen: Present: normal appearance, other (Gravid, NT) FHR comments: 135-140, minimal to periods of moderate variability, + Episodic Deceleration noted. Uterine Contraction Pattern: Absent - Labs Labs: Abnormal Labs 11/13/20 11/14/20 11/16/20 14:00 13:30 06:14 WBC Creatinine 0.3 L POC Glucose 119 H AST Urine Creatinine 41.5 H Ur Total Protein 24 Hr 581.74 H Urine Total Protein 17 H 11/16/20 11/16/20 11:02 11:02 WBC 15.4 H Creatinine 0.3 L POC Glucose AST 41 H Urine Creatinine Ur Total Protein 24 Hr Urine Total Protein Laboratory Results - last 24 hr 11/15/20 11/16/2011/16/21 09:06 06:14 11:02 WBC 15.4 H RBC 3.73 Hgb 11.0 Hct 33.2 MCV 89 MCH 30 MCHC 33 RDW 14.7 Plt Count 165 Creatinine Estimated GFR POC Glucose 119 H Uric Acid AST ALT Lactate Dehydrogenase Coronavirus (PCR) Negative 11/16/20 11:02 WBC RBC Hgb Hct MCV MCH MCHC RDW Plt Count Creatinine 0.3 L Estimated GFR > 60 POC Glucose Uric Acid 4.4 AST 41 H ALT 39 Lactate Dehydrogenase 179 Coronavirus (PCR)
[2020-11-16] MEDS ORDERED: D5W/LACTATED RINGERS 1,000 ML IV SCH (15:00)
--- NOTE | 2020-11-16 16:06 | Consultation ---
Consult Note - Parent Education I met with parent(s) and discussed the following:: Need for NICU admission, Poss ible need for intubation and surfactant or other resp support, Temperature regulation, Head ultrasounds to evaluate IVH, Eye exams for ROP screening, Possible need for IV fluids/TPN and IV antibiotics, Possible need for umbilical lines, Importance of providing breast milk & encouraged pumping aft delivery, Donor breast milk if baby meets criteria after , Slow feeding advancement and monitoring of tolerance. NG/OG feeds, Need to monitor for jaundice, Data for survival & survival without significant co-morbidities Parent(s) demonstrated understanding of all the information:: Yes Additional Comment: 40 yo mother who presented with elevated BP and proteinuria. Steroids and magnesium given. EDC 01/28/21 A+, rubella immune, hep B negative, HIV negative VDRL nonreactive, GC/chlamydia negative. GDM on metformin. Fragile X carrier. AMA Assessment and Plan - Assessment Gestation:: 27 Baby's gender: Male Additional Comment: Mother speaks some Mongolian. Consult translated via patron attendant in room with mother. Verbalized understanding - Plan Plan: Agree with Mag & steroids Will attend delivery Please call NICU with questions
[2020-11-16] MEDS ORDERED: NIFEdipine XL 30 MG TAB PO ONE (18:55)
[2020-11-17] MEDS: LACTATED RINGERS 1,000 ML IV SCH ×2 (04:00→16:40)
[2020-11-17] MEDS: ACETAMINOPHEN 500 MG TAB PO PRN ×2 (04:40→19:20)
[2020-11-17] MEDS: MAGNESIUM SULFATE 40GM/1000ML 40 GM/1,000 ML BAG IV SCH (04:44)
[2020-11-17 09:30] LABS: Hematocrit 34.4 % (30.3-42.9); Hemoglobin 11.7 gm/dl (10.1-14.3); Mean Corpuscular HGB Conc 34 % (30-34); Mean Corpuscular Volume 89 fl (79-97); Platelet Count 156 K/mm3 (140-440); Red Blood Count 3.88 M/mm3 (3.65-5.03); Red Cell Distribution Width 14.6 % (13.2-15.2)
[2020-11-17 09:40] LABS: Alanine Aminotransferase 39 units/L (7-56); Uric Acid 4.7 mg/dL (3.5-7.6)
--- NOTE | 2020-11-17 12:37 | Progress Note ---
Assessment and Plan - Patient Problems (1) Preeclampsia Current Visit: Yes Status: Acute Qualifiers: Trimester: second trimester Qualified Code(s): O14.92 - Unspecified pre- eclampsia, second trimester Plan to address problem: plans stable BPs <160/110-has not had a treatable series>24 hours on PO labetalol will repeat doppler studies and BPP US for presentation close monitoring maternal and status stable Kalpana Yen MD (2) PIH ( induced hypertension) Current Visit: Yes Status: Acute Qualifiers: Trimester: second trimester Qualified Code(s): O13.2 - Gestational [-induced] hypertension without significant proteinuria, second trimester Subjective - Subjective Date of service: 11/17/20 Principal diagnosis: preeclampsia Objective - Vital Signs Vital Signs: Vital Signs - 12hr 11/17/20 11/17/20 11/17/20 00:35 00:38 00:42 Temperature Pulse Rate 79 81 81 Respiratory Rate Blood Pressure O2 Sat by Pulse 94 94 94 Oximetry 11/17/20 11/17/20 11/17/20 00:43 00:44 00:47 Temperature Pulse Rate 80 77 79 Respiratory Rate Blood Pressure 122/72 O2 Sat by Pulse 93 94 Oximetry 11/17/20 11/17/20 11/17/20 00:48 00:52 00:53 Temperature Pulse Rate 80 77 78 Respiratory Rate Blood Pressure O2 Sat by Pulse 94 94 94 Oximetry 11/17/20 11/17/20 11/17/20 00:58 01:03 01:08 Temperature Pulse Rate 77 77 78 Respiratory Rate Blood Pressure O2 Sat by Pulse 94 94 93 Oximetry 11/17/20 11/17/20 11/17/20 01:09 01:13 01:14 Temperature Pulse Rate 76 76 73 Respiratory Rate Blood Pressure 114/70 O2 Sat by Pulse 94 95 Oximetry 11/17/20 11/17/20 11/17/20 01:15 01:18 01:20 Temperature Pulse Rate 76 79 76 Respiratory Rate Blood Pressure O2 Sat by Pulse 94 94 94 Oximetry 11/17/20 11/17/20 11/17/20 01:23 01:27 01:28 Temperature Pulse Rate 76 77 77 Respiratory Rate Blood Pressure O2 Sat by Pulse 93 94 93 Oximetry 11/17/20 11/17/20 11/17/20 01:32 01:33 01:38 Temperature Pulse Rate 74 76 75 Respiratory Rate Blood Pressure O2 Sat by Pulse 94 94 94 Oximetry 11/17/20 11/17/20 11/17/20 01:43 01:44 01:48 Temperature Pulse Rate 77 71 77 Respiratory Rate Blood Pressure 121/73 O2 Sat by Pulse 94 93 93 Oximetry 11/17/20 11/17/20 11/17/20 01:49 01:53 01:55 Temperature Pulse Rate 75 75 75 Respiratory Rate Blood Pressure O2 Sat by Pulse 94 93 94 Oximetry 11/17/20 11/17/20 11/17/20 01:58 02:00 02:03 Temperature Pulse Rate 76 77 78 Respiratory Rate Blood Pressure O2 Sat by Pulse 95 94 95 Oximetry 11/17/20 11/17/20 11/17/20 02:05 02:08 02:11 Temperature Pulse Rate 77 75 81 Respiratory Rate Blood Pressure O2 Sat by Pulse 94 94 94 Oximetry 11/17/20 11/17/20 11/17/20 02:13 02:14 02:16 Temperature Pulse Rate 75 75 77 Respiratory Rate Blood Pressure 128/75 O2 Sat by Pulse 93 94 Oximetry 11/17/20 11/17/20 11/17/20 02:18 02:21 02:23 Temperature Pulse Rate 74 73 80 Respiratory Rate Blood Pressure O2 Sat by Pulse 96 94 92 Oximetry 11/17/20 11/17/20 11/17/20 02:28 02:29 02:33 Temperature Pulse Rate 75 74 76 Respiratory Rate Blood Pressure O2 Sat by Pulse 93 94 93 Oximetry 11/17/20 11/17/20 11/17/20 02:34 02:38 02:40 Temperature Pulse Rate 73 72 75 Respiratory Rate Blood Pressure O2 Sat by Pulse 94 95 94 Oximetry 11/17/20 11/17/20 11/17/20 02:43 02:44 02:48 Temperature Pulse Rate 77 71 76 Respiratory Rate Blood Pressure 126/76 O2 Sat by Pulse 93 93 Oximetry 11/17/20 11/17/20 11/17/20 02:51 02:53 02:57 Temperature Pulse Rate 75 75 76 Respiratory Rate Blood Pressure O2 Sat by Pulse 94 95 94 Oximetry 11/17/20 11/17/20 11/17/20 02:58 03:03 03:08 Temperature Pulse Rate 74 75 74 Respiratory Rate Blood Pressure O2 Sat by Pulse 93 93 94 Oximetry 11/17/20 11/17/2011/17/21 03:09 03:13 03:14 Temperature Pulse Rate 76 74 76 Respiratory Rate Blood Pressure 128/77 O2 Sat by Pulse 94 94 94 Oximetry 11/17/20 11/17/20 11/17/20 03:18 03:23 03:28 Temperature Pulse Rate 77 74 74 Respiratory Rate Blood Pressure O2 Sat by Pulse 94 94 93 Oximetry 11/17/20 11/17/20 11/17/20 03:33 03:38 03:43 Temperature Pulse Rate 72 71 73 Respiratory Rate Blood Pressure O2 Sat by Pulse 94 94 94 Oximetry 11/17/20 11/17/20 11/17/20 03:44 03:48 03:53 Temperature Pulse Rate 73 72 73 Respiratory Rate Blood Pressure 137/80 O2 Sat by Pulse 94 94 Oximetry 11/17/20 11/17/20 11/17/20 03:58 04:03 04:08 Temperature Pulse Rate 73 70 71 Respiratory Rate Blood Pressure O2 Sat by Pulse 94 93 94 Oximetry 11/17/20 11/17/20 11/17/20 04:10 04:13 04:15 Temperature Pulse Rate 74 74 71 Respiratory Rate Blood Pressure 141/82 O2 Sat by Pulse 94 94 Oximetry 11/17/20 11/17/20 11/17/20 04:16 04:18 04:23 Temperature Pulse Rate 71 74 74 Respiratory Rate Blood Pressure O2 Sat by Pulse 94 96 93 Oximetry 11/17/20 11/17/20 11/17/20 04:25 04:28 04:30 Temperature 98.0 F Pulse Rate 73 72 Respiratory Rate Blood Pressure O2 Sat by Pulse 94 94 Oximetry 11/17/20 11/17/20 11/17/20 04:33 04:34 04:38 Temperature Pulse Rate 76 74 75 Respiratory Rate Blood Pressure O2 Sat by Pulse 96 94 95 Oximetry 11/17/20 11/17/20 11/17/20 04:40 04:43 04:44 Temperature Pulse Rate 74 75 73 Respiratory Rate Blood Pressure 142/82 O2 Sat by Pulse 94 94 Oximetry 11/17/20 11/17/20 11/17/20 04:45 04:48 04:50 Temperature Pulse Rate 74 74 74 Respiratory Rate Blood Pressure O2 Sat by Pulse 93 94 94 Oximetry 11/17/20 11/17/20 11/17/20 04:53 04:58 05:02 Temperature Pulse Rate 74 73 73 Respiratory Rate Blood Pressure O2 Sat by Pulse 94 94 94 Oximetry 11/17/20 11/17/20 11/17/20 05:03 05:08 05:13 Temperature Pulse Rate 75 72 72 Respiratory Rate Blood Pressure O2 Sat by Pulse 94 94 93 Oximetry 11/17/20 11/17/20 11/17/20 05:14 05:18 05:20 Temperature Pulse Rate 71 74 74 Respiratory Rate Blood Pressure 141/79 O2 Sat by Pulse 95 94 Oximetry 11/17/20 11/17/20 11/17/20 05:23 05:25 05:28 Temperature Pulse Rate 72 75 74 Respiratory Rate Blood Pressure O2 Sat by Pulse 94 94 95 Oximetry 11/17/20 11/17/20 11/17/20 05:33 05:38 05:42 Temperature Pulse Rate 73 71 71 Respiratory Rate Blood Pressure O2 Sat by Pulse 93 94 94 Oximetry 11/17/20 11/17/20 11/17/20 05:43 05:44 05:48 Temperature Pulse Rate 71 76 71 Respiratory Rate Blood Pressure 138/80 O2 Sat by Pulse 93 93 Oximetry 11/17/20 11/17/20 11/17/20 05:51 05:53 05:58 Temperature Pulse Rate 71 68 71 Respiratory Rate Blood Pressure O2 Sat by Pulse 94 94 94 Oximetry 11/17/20 11/17/20 11/17/20 06:02 06:03 06:08 Temperature Pulse Rate 74 70 70 Respiratory Rate Blood Pressure O2 Sat by Pulse 94 94 94 Oximetry 11/17/20 11/17/20 11/17/20 06:12 06:13 06:14 Temperature Pulse Rate 72 78 75 Respiratory Rate Blood Pressure 139/78 O2 Sat by Pulse 94 94 Oximetry 11/17/20 11/17/20 11/17/20 06:18 06:20 06:23 Temperature Pulse Rate 70 69 71 Respiratory Rate Blood Pressure O2 Sat by Pulse 93 94 94 Oximetry 11/17/20 11/17/20 11/17/20 06:26 06:28 06:33 Temperature Pulse Rate 80 77 73 Respiratory Rate Blood Pressure O2 Sat by Pulse 94 95 94 Oximetry 11/17/20 11/17/20 11/17/20 06:38 06:43 06:44 Temperature Pulse Rate 72 72 74 Respiratory Rate Blood Pressure 138/77 O2 Sat by Pulse 94 94 Oximetry 11/17/20 11/17/20 11/17/20 06:48 06:53 06:56 Temperature Pulse Rate 71 70 70 Respiratory Rate Blood Pressure O2 Sat by Pulse 94 94 94 Oximetry 11/17/20 11/17/20 11/17/20 06:58 07:03 07:05 Temperature Pulse Rate 71 71 71 Respiratory Rate Blood Pressure O2 Sat by Pulse 94 94 94 Oximetry 11/17/20 11/17/20 11/17/20 07:08 07:11 07:13 Temperature Pulse Rate 70 71 73 Respiratory Rate Blood Pressure O2 Sat by Pulse 94 94 94 Oximetry 11/17/20 11/17/20 11/17/20 07:14 07:15 07:17 Temperature 98.1 F Pulse Rate 72 69 Respiratory 16 Rate Blood Pressure 140/78 O2 Sat by Pulse 94 Oximetry 11/17/20 11/17/20 11/17/20 07:18 07:23 07:28 Temperature Pulse Rate 68 74 69 Respiratory Rate Blood Pressure O2 Sat by Pulse 94 94 95 Oximetry 11/17/20 11/17/20 11/17/20 07:30 07:33 07:35 Temperature Pulse Rate 71 70 71 Respiratory Rate Blood Pressure O2 Sat by Pulse 94 95 94 Oximetry 11/17/20 11/17/20 11/17/20 07:38 07:41 07:43 Temperature Pulse Rate 71 72 74 Respiratory Rate Blood Pressure O2 Sat by Pulse 94 94 94 Oximetry 11/17/20 11/17/20 11/17/20 07:44 07:45 07:48 Temperature Pulse Rate 73 78 87 Respiratory Rate Blood Pressure 138/78 138/79 O2 Sat by Pulse 97 Oximetry 11/17/20 11/17/20 11/17/20 07:53 07:58 08:03 Temperature Pulse Rate 79 79 79 Respiratory Rate Blood Pressure O2 Sat by Pulse 96 97 96 Oximetry 11/17/20 11/17/20 11/17/20 08:08 08:13 08:14 Temperature Pulse Rate 78 81 81 Respiratory Rate Blood Pressure 135/79 O2 Sat by Pulse 96 96 Oximetry 11/17/20 11/17/20 11/17/20 08:18 08:21 08:23 Temperature Pulse Rate 82 84 84 Respiratory Rate Blood Pressure O2 Sat by Pulse 95 94 94 Oximetry 11/17/20 11/17/20 11/17/20 08:27 08:28 08:33 Temperature Pulse Rate 81 82 81 Respiratory Rate Blood Pressure O2 Sat by Pulse 94 94 93 Oximetry 11/17/20 11/17/20 11/17/20 08:38 08:39 08:43 Temperature Pulse Rate 80 79 80 Respiratory Rate Blood Pressure O2 Sat by Pulse 93 93 93 Oximetry 11/17/20 11/17/20 11/17/20 08:44 08:45 08:48 Temperature Pulse Rate 78 79 79 Respiratory Rate Blood Pressure 129/73 O2 Sat by Pulse 94 93 Oximetry 11/17/20 11/17/20 11/17/20 08:53 08:58 09:01 Temperature Pulse Rate 78 74 78 Respiratory Rate Blood Pressure O2 Sat by Pulse 94 93 93 Oximetry 11/17/20 11/17/20 11/17/20 09:03 09:06 09:08 Temperature Pulse Rate 75 79 78 Respiratory Rate Blood Pressure O2 Sat by Pulse 95 94 94 Oximetry 11/17/20 11/17/20 11/17/20 09:13 09:14 09:18 Temperature Pulse Rate 77 76 74 Respiratory Rate Blood Pressure 138/81 O2 Sat by Pulse 93 93 93 Oximetry 11/17/20 11/17/20 11/17/20 09:23 09:28 09:33 Temperature Pulse Rate 74 75 75 Respiratory Rate Blood Pressure O2 Sat by Pulse 93 93 93 Oximetry 11/17/20 11/17/20 11/17/20 09:38 09:43 09:44 Temperature Pulse Rate 72 74 72 Respiratory Rate Blood Pressure 143/79 O2 Sat by Pulse 93 93 Oximetry 11/17/20 11/17/20 11/17/20 09:48 09:53 09:58 Temperature Pulse Rate 71 72 70 Respiratory Rate Blood Pressure O2 Sat by Pulse 94 93 94 Oximetry 11/17/20 11/17/20 11/17/20 10:03 10:06 10:08 Temperature Pulse Rate 70 69 71 Respiratory Rate Blood Pressure O2 Sat by Pulse 94 94 94 Oximetry 11/17/20 11/17/20 11/17/20 10:13 10:14 10:17 Temperature Pulse Rate 70 72 70 Respiratory Rate Blood Pressure 151/84 O2 Sat by Pulse 94 94 Oximetry 11/17/20 11/17/20 11/17/20 10:18 10:23 10:24 Temperature Pulse Rate 67 71 73 Respiratory Rate Blood Pressure O2 Sat by Pulse 94 94 94 Oximetry 11/17/20 11/17/20 11/17/20 10:28 10:33 10:34 Temperature Pulse Rate 70 70 68 Respiratory Rate Blood Pressure O2 Sat by Pulse 94 94 94 Oximetry 11/17/20 11/17/20 11/17/20 10:38 10:40 10:43 Temperature Pulse Rate 71 69 72 Respiratory Rate Blood Pressure O2 Sat by Pulse 94 94 95 Oximetry 11/17/20 11/17/20 11/17/20 10:44 10:48 10:49 Temperature Pulse Rate 73 75 75 Respiratory Rate Blood Pressure 149/80 O2 Sat by Pulse 94 94 Oximetry 11/17/20 11/17/20 11/17/20 10:53 10:58 11:03 Temperature Pulse Rate 74 74 72 Respiratory Rate Blood Pressure O2 Sat by Pulse 94 94 93 Oximetry 11/17/20 11/17/20 11/17/20 11:08 11:13 11:14 Temperature Pulse Rate 72 71 73 Respiratory Rate Blood Pressure 150/84 O2 Sat by Pulse 94 94 94 Oximetry 11/17/20 11/17/20 11/17/20 11:18 11:20 11:23 Temperature Pulse Rate 72 70 70 Respiratory Rate Blood Pressure O2 Sat by Pulse 94 94 94 Oximetry 11/17/20 11/17/20 11/17/20 11:27 11:28 11:33 Temperature Pulse Rate 69 69 70 Respiratory Rate Blood Pressure O2 Sat by Pulse 94 94 94 Oximetry 11/17/20 11/17/20 11/17/20 11:35 11:38 11:40 Temperature Pulse Rate 71 72 71 Respiratory Rate Blood Pressure O2 Sat by Pulse 94 94 94 Oximetry 11/17/20 11/17/20 11/17/20 11:43 11:44 11:48 Temperature Pulse Rate 69 71 74 Respiratory Rate Blood Pressure 152/80 O2 Sat by Pulse 95 94 Oximetry 11/17/20 11/17/20 11/17/20 11:49 11:53 11:55 Temperature Pulse Rate 69 69 70 Respiratory Rate Blood Pressure O2 Sat by Pulse 94 94 94 Oximetry 11/17/20 11/17/20 11/17/20 11:59 12:01 12:04 Temperature Pulse Rate 72 69 70 Respiratory Rate Blood Pressure O2 Sat by Pulse 95 94 94 Oximetry 11/17/20 11/17/20 11/17/20 12:09 12:14 12:19 Temperature Pulse Rate 73 72 73 Respiratory Rate Blood Pressure 157/85 O2 Sat by Pulse 94 95 95 Oximetry 11/17/20 11/17/20 12:24 12:29 Temperature Pulse Rate 73 73 Respiratory Rate Blood Pressure O2 Sat by Pulse 96 95 Oximetry - Exam Breasts: deferred Cardiovascular: Regular rate Lungs: Clear to auscultation FHR: other (approproate for gestational age and MGSO4) Uterine Contraction Pattern: Absent - Labs Labs: Abnormal Labs 11/13/20 11/14/20 11/16/20 14:00 13:30 06:14 WBC Creatinine 0.3 L POC Glucose 119 H Magnesium AST Lactate Dehydrogenase Urine Creatinine 41.5 H Ur Total Protein 24 Hr 581.74 H Urine Total Protein 17 H 11/16/20 11/16/20 11/16/20 11:02 11:02 15:20 WBC 15.4 H Creatinine 0.3 L POC Glucose Magnesium 4.10 H AST 41 H Lactate Dehydrogenase Urine Creatinine Ur Total Protein 24 Hr Urine Total Protein 11/16/20 11/17/20 11/17/20 18:28 01:25 06:26 WBC Creatinine POC Glucose 112 H Magnesium 4.60 H 4.80 H AST Lactate Dehydrogenase Urine Creatinine Ur Total Protein 24 Hr Urine Total Protein 11/17/20 11/17/20 08:49 08:49 WBC 14.5 H Creatinine 0.3 L POC Glucose Magnesium 5.50 H AST Lactate Dehydrogenase 216 H Urine Creatinine Ur Total Protein 24 Hr Urine Total Protein Laboratory Results - last 24 hr 11/16/20 11/16/20 11/17/20 15:20 18:28 01:25 WBC RBC Hgb Hct MCV MCH MCHC RDW Plt Count Creatinine Estimated GFR POC Glucose Uric Acid Magnesium 4.10 H 4.60 H 4.80 H AST ALT Lactate Dehydrogenase 11/17/20 11/17/20 11/17/20 06:26 08:49 08:49 WBC 14.5 H RBC 3.88 Hgb 11.7 Hct 34.4 MCV 89 MCH 30 MCHC 34 RDW 14.6 Plt Count 156 Creatinine 0.3 L Estimated GFR > 60 POC Glucose 112 H Uric Acid 4.7 Magnesium 5.50 H AST 35 ALT 39 Lactate Dehydrogenase 216 H
--- NOTE | 2020-11-17 17:15 | Ultrasound Report ---
ULTRASOUND OBSTETRIC LIMITED ULTRASOUND BIOPHYSICAL PROFILE INDICATION / CLINICAL INFORMATION: absent end diastolic flow in loop1. COMPARISON: 11/14/2020 FINDINGS: BREATHING MOVEMENT = 2 GROSS BODY MOVEMENT = 2 TONE = 2 QUALITATIVE AMNIOTIC FLUID VOLUME = 2 TOTAL BIOPHYSICAL SCORE = 8/8 HEART RATE (beats per minute): 137 Biparietal Diameter = 6.5 cm = 26.2 weeks.days Head Circumference = 25.2 cm = 27.2 weeks.days Abdominal Circumference = 21.8 cm = 26.2 weeks.days Femur Length = 5.2 cm = 27.6 weeks.days Average Ultrasound Age (AUA) = 27.0 weeks.days Estimated Weight in grams (if calculated): 1000 PRESENTATION: Breech. ADDITIONAL FINDINGS: Amniotic fluid index measures 9.5 cm. 3 segments of the umbilical cord were not evaluated. The average pulsatility index is 2.7 with persistent flow pattern. IMPRESSION: 1. Biophysical Score = 8/8 2. Breech presentation 3. Pulsatility index average measures 2.7. Signer Name: Ed Rob MD Signed: 11/17/2020 5:11 PM Workstation Name: [employer]
--- NOTE | 2020-11-17 20:31 | Event Note ---
Date: 11/17/20 EFW 20% UA doppler: absent EDF case discussed with [facility], continue to monitor, no IUGR at this point. labs stable BPs stable FHT Category 2 continue conservative mgmt Kalpana Yen MD
[2020-11-17] MEDS: NIFEdipine XL 30 MG TAB PO SCH (21:58)
[2020-11-18] MEDS: LACTATED RINGERS 1,000 ML IV SCH ×3 (07:04→23:34)
--- NOTE | 2020-11-18 07:55 | Progress Note ---
Assessment and Plan - Patient Problems (1) Preeclampsia Current Visit: Yes Status: Acute Qualifiers: Trimester: second trimester Qualified Code(s): O14.92 - Unspecified pre- eclampsia, second trimester Plan to address problem: BP's improved on Labetalol and Procardia MGSO4 dc'd yesterday-pt stable since labs stable OB UA doppler: persistent absent end diastolic flow with no IUGR(20% EFW) Will order labs for tomorrow AM continue conservative management plan for delivery for severe PE or for any maternal/ indications. Kalpana Yen MD (2) PIH ( induced hypertension) Current Visit: Yes Status: Acute Qualifiers: Trimester: second trimester Qualified Code(s): O13.2 - Gestational [-induced] hypertension without significant proteinuria, second trimester Subjective - Subjective Date of service: 11/18/20 Principal diagnosis: preeclampsia Objective - Vital Signs Vital Signs: Vital Signs - 12hr 11/17/20 11/17/20 11/17/20 19:55 20:05 20:10 Temperature Pulse Rate 67 76 68 Respiratory Rate Blood Pressure Blood Pressure [Left] O2 Sat by Pulse 95 95 100 Oximetry 11/17/20 11/17/20 11/17/20 20:15 20:20 20:22 Temperature Pulse Rate 67 66 72 Respiratory Rate Blood Pressure 140/79 Blood Pressure [Left] O2 Sat by Pulse 100 100 Oximetry 11/17/20 11/17/20 11/17/20 20:23 20:25 20:28 Temperature Pulse Rate 71 71 65 Respiratory Rate Blood Pressure 140/79 133/76 Blood Pressure [Left] O2 Sat by Pulse 100 Oximetry 11/17/20 11/17/20 11/17/20 20:30 20:35 20:40 Temperature Pulse Rate 67 65 64 Respiratory Rate Blood Pressure Blood Pressure [Left] O2 Sat by Pulse 100 100 100 Oximetry 11/17/20 11/17/20 11/17/20 20:45 20:50 20:55 Temperature Pulse Rate 74 77 73 Respiratory Rate Blood Pressure Blood Pressure [Left] O2 Sat by Pulse 98 97 94 Oximetry 11/17/20 11/17/20 11/17/20 20:57 21:00 21:05 Temperature Pulse Rate 69 71 71 Respiratory Rate Blood Pressure 124/72 Blood Pressure [Left] O2 Sat by Pulse 95 94 Oximetry 11/17/20 11/17/20 11/17/20 21:10 21:11 21:15 Temperature Pulse Rate 74 70 71 Respiratory Rate Blood Pressure Blood Pressure [Left] O2 Sat by Pulse 94 94 95 Oximetry 11/17/20 11/17/20 11/17/20 21:20 21:25 21:28 Temperature Pulse Rate 68 73 66 Respiratory Rate Blood Pressure 133/78 Blood Pressure [Left] O2 Sat by Pulse 96 94 Oximetry 11/17/20 11/17/20 11/17/20 21:30 21:35 21:36 Temperature Pulse Rate 67 66 65 Respiratory Rate Blood Pressure Blood Pressure [Left] O2 Sat by Pulse 95 95 94 Oximetry 11/17/20 11/17/20 11/17/20 21:40 21:42 21:45 Temperature Pulse Rate 64 64 65 Respiratory Rate Blood Pressure Blood Pressure [Left] O2 Sat by Pulse 94 94 94 Oximetry 11/17/20 11/17/20 11/17/20 21:50 21:51 21:55 Temperature Pulse Rate 64 64 64 Respiratory Rate Blood Pressure Blood Pressure [Left] O2 Sat by Pulse 94 94 95 Oximetry 11/17/20 11/17/20 11/17/20 21:57 22:00 22:05 Temperature Pulse Rate 65 66 67 Respiratory Rate Blood Pressure 132/80 Blood Pressure [Left] O2 Sat by Pulse 94 96 94 Oximetry 11/17/20 11/17/20 11/17/20 22:10 22:15 22:17 Temperature Pulse Rate 65 68 65 Respiratory Rate Blood Pressure Blood Pressure [Left] O2 Sat by Pulse 94 95 94 Oximetry 11/17/20 11/17/20 11/17/20 22:20 22:25 22:28 Temperature Pulse Rate 65 63 65 Respiratory Rate Blood Pressure 141/83 Blood Pressure [Left] O2 Sat by Pulse 94 94 Oximetry 11/17/20 11/17/20 11/17/20 22:30 22:35 22:40 Temperature Pulse Rate 69 64 67 Respiratory Rate Blood Pressure Blood Pressure [Left] O2 Sat by Pulse 95 95 96 Oximetry 11/17/20 11/17/20 11/17/20 22:45 22:50 22:55 Temperature Pulse Rate 65 62 63 Respiratory Rate Blood Pressure Blood Pressure [Left] O2 Sat by Pulse 95 95 95 Oximetry 11/17/20 11/17/20 11/17/20 22:57 23:00 23:05 Temperature Pulse Rate 66 70 70 Respiratory Rate Blood Pressure 139/81 Blood Pressure [Left] O2 Sat by Pulse 97 98 Oximetry 11/17/20 11/17/20 11/17/20 23:21 23:26 23:27 Temperature Pulse Rate 70 67 Respiratory Rate Blood Pressure 131/77 Blood Pressure [Left] O2 Sat by Pulse 92 95 Oximetry 11/17/20 11/17/20 11/17/20 23:31 23:36 23:41 Temperature Pulse Rate 71 69 69 Respiratory Rate Blood Pressure Blood Pressure [Left] O2 Sat by Pulse 95 95 94 Oximetry 11/17/20 11/17/20 11/17/20 23:46 23:48 23:51 Temperature Pulse Rate 73 69 69 Respiratory Rate Blood Pressure Blood Pressure [Left] O2 Sat by Pulse 95 94 95 Oximetry 11/17/20 11/17/20 11/18/20 23:56 23:57 00:00 Temperature Pulse Rate 72 68 70 Respiratory Rate Blood Pressure 146/80 Blood Pressure [Left] O2 Sat by Pulse 95 94 Oximetry 11/18/20 11/18/20 11/18/20 00:01 00:06 00:11 Temperature Pulse Rate 69 70 70 Respiratory Rate Blood Pressure Blood Pressure [Left] O2 Sat by Pulse 95 95 95 Oximetry 11/18/20 11/18/20 11/18/20 00:16 00:20 00:21 Temperature 98.2 F Pulse Rate 68 68 67 Respiratory 16 Rate Blood Pressure Blood Pressure [Left] O2 Sat by Pulse 95 94 95 Oximetry 11/18/20 11/18/20 11/18/20 00:25 00:26 00:28 Temperature Pulse Rate 68 69 69 Respiratory Rate Blood Pressure 148/81 Blood Pressure [Left] O2 Sat by Pulse 94 94 Oximetry 11/18/20 11/18/20 11/18/20 00:30 00:31 00:36 Temperature Pulse Rate 69 69 68 Respiratory Rate Blood Pressure Blood Pressure [Left] O2 Sat by Pulse 94 95 94 Oximetry 11/18/20 11/18/20 11/18/20 00:41 00:43 00:46 Temperature Pulse Rate 68 66 65 Respiratory Rate Blood Pressure Blood Pressure [Left] O2 Sat by Pulse 95 94 95 Oximetry 11/18/20 11/18/20 11/18/20 00:51 00:55 00:56 Temperature Pulse Rate 67 68 67 Respiratory Rate Blood Pressure Blood Pressure [Left] O2 Sat by Pulse 95 94 95 Oximetry 11/18/20 11/18/20 11/18/20 00:58 01:01 01:06 Temperature Pulse Rate 68 69 67 Respiratory Rate Blood Pressure 152/82 Blood Pressure [Left] O2 Sat by Pulse 96 94 Oximetry 11/18/20 11/18/20 11/18/20 01:11 01:16 01:21 Temperature Pulse Rate 64 65 62 Respiratory Rate Blood Pressure Blood Pressure [Left] O2 Sat by Pulse 93 94 94 Oximetry 11/18/20 11/18/20 11/18/20 01:25 01:26 01:28 Temperature Pulse Rate 64 63 65 Respiratory Rate Blood Pressure 154/90 Blood Pressure [Left] O2 Sat by Pulse 93 94 Oximetry 11/18/20 11/18/20 11/18/20 01:31 01:35 01:36 Temperature Pulse Rate 66 61 63 Respiratory Rate Blood Pressure Blood Pressure [Left] O2 Sat by Pulse 94 94 95 Oximetry 11/18/20 11/18/20 11/18/20 01:40 01:41 01:46 Temperature Pulse Rate 65 63 63 Respiratory Rate Blood Pressure Blood Pressure [Left] O2 Sat by Pulse 94 95 94 Oximetry 11/18/20 11/18/20 11/18/20 01:47 01:51 01:53 Temperature Pulse Rate 65 63 64 Respiratory Rate Blood Pressure Blood Pressure [Left] O2 Sat by Pulse 94 94 94 Oximetry 11/18/20 11/18/20 11/18/20 01:56 01:58 02:00 Temperature Pulse Rate 64 66 64 Respiratory Rate Blood Pressure 158/91 Blood Pressure [Left] O2 Sat by Pulse 94 94 Oximetry 11/18/20 11/18/20 11/18/20 02:01 02:06 02:09 Temperature Pulse Rate 61 62 63 Respiratory Rate Blood Pressure Blood Pressure [Left] O2 Sat by Pulse 95 95 94 Oximetry 11/18/20 11/18/20 11/18/20 02:11 02:14 02:16 Temperature Pulse Rate 61 70 70 Respiratory Rate Blood Pressure Blood Pressure [Left] O2 Sat by Pulse 95 94 95 Oximetry 11/18/20 11/18/20 11/18/20 02:20 02:21 02:26 Temperature Pulse Rate 69 68 62 Respiratory Rate Blood Pressure Blood Pressure [Left] O2 Sat by Pulse 94 96 95 Oximetry 11/18/20 11/18/20 11/18/20 02:28 02:31 02:36 Temperature Pulse Rate 64 62 63 Respiratory Rate Blood Pressure 149/84 Blood Pressure [Left] O2 Sat by Pulse 95 95 Oximetry 11/18/20 11/18/20 11/18/20 02:41 02:44 02:46 Temperature Pulse Rate 64 65 64 Respiratory Rate Blood Pressure Blood Pressure [Left] O2 Sat by Pulse 95 94 95 Oximetry 11/18/20 11/18/20 11/18/20 02:50 02:51 02:55 Temperature Pulse Rate 63 64 78 Respiratory Rate Blood Pressure Blood Pressure [Left] O2 Sat by Pulse 94 94 94 Oximetry 11/18/20 11/18/20 11/18/20 02:56 02:58 03:01 Temperature Pulse Rate 70 68 65 Respiratory Rate Blood Pressure 149/84 Blood Pressure [Left] O2 Sat by Pulse 94 94 Oximetry 11/18/20 11/18/20 11/18/20 03:06 03:11 03:13 Temperature Pulse Rate 71 72 72 Respiratory Rate Blood Pressure Blood Pressure [Left] O2 Sat by Pulse 95 96 94 Oximetry 11/18/20 11/18/20 11/18/20 03:16 03:18 03:21 Temperature Pulse Rate 76 73 78 Respiratory Rate Blood Pressure Blood Pressure [Left] O2 Sat by Pulse 95 94 94 Oximetry 11/18/20 11/18/20 11/18/20 03:26 03:27 03:31 Temperature Pulse Rate 74 72 76 Respiratory Rate Blood Pressure 131/78 Blood Pressure [Left] O2 Sat by Pulse 94 94 Oximetry 11/18/20 11/18/20 11/18/20 03:36 03:38 03:41 Temperature Pulse Rate 76 76 79 Respiratory Rate Blood Pressure Blood Pressure [Left] O2 Sat by Pulse 95 94 93 Oximetry 11/18/20 11/18/20 11/18/20 03:46 03:51 03:56 Temperature Pulse Rate 76 74 84 Respiratory Rate Blood Pressure Blood Pressure [Left] O2 Sat by Pulse 93 91 94 Oximetry 11/18/20 11/18/20 11/18/20 03:57 04:01 04:06 Temperature Pulse Rate 74 73 76 Respiratory Rate Blood Pressure 147/85 Blood Pressure [Left] O2 Sat by Pulse 92 90 Oximetry 11/18/20 11/18/20 11/18/20 04:08 04:11 04:13 Temperature Pulse Rate 86 76 76 Respiratory Rate Blood Pressure Blood Pressure [Left] O2 Sat by Pulse 93 90 94 Oximetry 11/18/20 11/18/20 11/18/20 04:16 04:21 04:26 Temperature Pulse Rate 76 79 76 Respiratory Rate Blood Pressure Blood Pressure [Left] O2 Sat by Pulse 94 94 93 Oximetry 11/18/20 11/18/20 11/18/20 04:27 04:29 04:31 Temperature Pulse Rate 74 77 77 Respiratory Rate Blood Pressure 134/80 Blood Pressure [Left] O2 Sat by Pulse 94 94 Oximetry 11/18/20 11/18/20 11/18/20 04:35 04:36 04:40 Temperature Pulse Rate 77 77 79 Respiratory Rate Blood Pressure Blood Pressure [Left] O2 Sat by Pulse 94 94 90 Oximetry 11/18/20 11/18/20 11/18/20 04:41 04:46 04:47 Temperature Pulse Rate 79 78 Respiratory Rate Blood Pressure Blood Pressure [Left] O2 Sat by Pulse 90 94 94 Oximetry 11/18/20 11/18/20 11/18/20 04:55 04:56 05:00 Temperature 98.1 F Pulse Rate 78 Respiratory 16 Rate Blood Pressure Blood Pressure [Left] O2 Sat by Pulse 94 94 Oximetry 11/18/20 11/18/20 11/18/20 05:01 05:06 05:11 Temperature Pulse Rate 78 78 77 Respiratory Rate Blood Pressure Blood Pressure [Left] O2 Sat by Pulse 92 92 92 Oximetry 11/18/20 11/18/20 11/18/20 05:16 05:21 05:26 Temperature Pulse Rate 77 77 79 Respiratory Rate Blood Pressure Blood Pressure [Left] O2 Sat by Pulse 91 92 92 Oximetry 11/18/20 11/18/20 11/18/20 05:27 05:31 05:36 Temperature Pulse Rate 76 79 77 Respiratory Rate Blood Pressure 128/73 Blood Pressure [Left] O2 Sat by Pulse 91 91 Oximetry 11/18/20 11/18/20 11/18/20 05:41 05:46 05:51 Temperature Pulse Rate 76 75 77 Respiratory Rate Blood Pressure Blood Pressure [Left] O2 Sat by Pulse 91 91 91 Oximetry 11/18/20 11/18/20 11/18/20 05:56 05:57 06:01 Temperature Pulse Rate 74 75 75 Respiratory Rate Blood Pressure 134/75 Blood Pressure [Left] O2 Sat by Pulse 91 92 Oximetry 11/18/20 11/18/20 11/18/20 06:06 06:07 06:11 Temperature Pulse Rate 70 74 73 Respiratory Rate Blood Pressure Blood Pressure [Left] O2 Sat by Pulse 96 94 95 Oximetry 11/18/20 11/18/20 11/18/20 06:12 06:16 06:21 Temperature Pulse Rate 71 73 80 Respiratory Rate Blood Pressure Blood Pressure [Left] O2 Sat by Pulse 94 95 97 Oximetry 11/18/20 11/18/20 11/18/20 06:26 06:27 06:31 Temperature Pulse Rate 76 74 77 Respiratory Rate Blood Pressure 134/78 Blood Pressure [Left] O2 Sat by Pulse 98 96 Oximetry 11/18/20 11/18/20 11/18/20 06:36 06:41 06:46 Temperature Pulse Rate 76 76 76 Respiratory Rate Blood Pressure Blood Pressure [Left] O2 Sat by Pulse 97 97 96 Oximetry 11/18/20 11/18/20 11/18/20 06:51 06:54 06:56 Temperature Pulse Rate 74 77 77 Respiratory Rate Blood Pressure Blood Pressure [Left] O2 Sat by Pulse 95 94 95 Oximetry 11/18/20 11/18/20 11/18/20 06:57 07:01 07:05 Temperature 98.6 F Pulse Rate 75 78 75 Respiratory 16 Rate Blood Pressure 135/77 Blood Pressure 135/77 [Left] O2 Sat by Pulse 95 98 Oximetry 11/18/20 11/18/20 11/18/20 07:06 07:11 07:16 Temperature Pulse Rate 77 76 77 Respiratory Rate Blood Pressure Blood Pressure [Left] O2 Sat by Pulse 97 96 97 Oximetry 11/18/20 11/18/20 11/18/20 07:21 07:26 07:27 Temperature Pulse Rate 77 75 75 Respiratory Rate Blood Pressure 130/76 Blood Pressure [Left] O2 Sat by Pulse 97 96 Oximetry 11/18/20 11/18/20 11/18/20 07:31 07:36 07:41 Temperature Pulse Rate 77 76 75 Respiratory Rate Blood Pressure Blood Pressure [Left] O2 Sat by Pulse 97 97 95 Oximetry 11/18/20 11/18/20 11/18/20 07:46 07:47 07:51 Temperature Pulse Rate 82 82 77 Respiratory Rate Blood Pressure 130/76 Blood Pressure [Left] O2 Sat by Pulse 95 92 93 Oximetry - Labs Labs: Abnormal Labs 11/13/20 11/14/20 11/16/20 14:00 13:30 06:14 WBC Creatinine 0.3 L POC Glucose 119 H Magnesium AST Lactate Dehydrogenase Urine Creatinine 41.5 H Ur Total Protein 24 Hr 581.74 H Urine Total Protein 17 H 11/16/20 11/16/20 11/16/20 11:02 11:02 15:20 WBC 15.4 H Creatinine 0.3 L POC Glucose Magnesium 4.10 H AST 41 H Lactate Dehydrogenase Urine Creatinine Ur Total Protein 24 Hr Urine Total Protein 11/16/20 11/17/20 11/17/20 18:28 01:25 06:26 WBC Creatinine POC Glucose 112 H Magnesium 4.60 H 4.80 H AST Lactate Dehydrogenase Urine Creatinine Ur Total Protein 24 Hr Urine Total Protein 11/17/20 11/17/20 11/17/20 08:49 08:49 14:14 WBC 14.5 H Creatinine 0.3 L POC Glucose 107 H Magnesium 5.50 H AST Lactate Dehydrogenase 216 H Urine Creatinine Ur Total Protein 24 Hr Urine Total Protein 11/17/20 11/18/20 15:03 06:25 WBC Creatinine POC Glucose 115 H Magnesium 5.30 H AST Lactate Dehydrogenase Urine Creatinine Ur Total Protein 24 Hr Urine Total Protein Laboratory Results - last 24 hr 11/17/20 11/17/20 11/17/20 08:49 08:49 14:14 WBC 14.5 H RBC 3.88 Hgb 11.7 Hct 34.4 MCV 89 MCH 30 MCHC 34 RDW 14.6 Plt Count 156 Creatinine 0.3 L Estimated GFR > 60 POC Glucose 107 H Uric Acid 4.7 Magnesium 5.50 H AST 35 ALT 39 Lactate Dehydrogenase 216 H 11/17/20 11/18/20 15:03 06:25 WBC RBC Hgb Hct MCV MCH MCHC RDW Plt Count Creatinine Estimated GFR POC Glucose 115 H Uric Acid Magnesium 5.30 H AST ALT Lactate Dehydrogenase
[2020-11-18] MEDS ORDERED: hydrALAZINE 20 MG/1 ML INJ IV ONE ×2 (15:30→18:30)
[2020-11-18] MEDS ORDERED: METOCLOPRAMIDE 10 MG/2 ML INJ IV ONE (17:17)
[2020-11-18] MEDS ORDERED: BICITRA ORAL LIQD 30ML PO ONE (17:17)
[2020-11-18] MEDS ORDERED: FAMOTIDINE 20 MG/2 ML INJ IV ONE (17:17)
--- NOTE | 2020-11-18 18:15 | Progress Note ---
Assessment and Plan - Patient Problems (1) Preeclampsia Current Visit: Yes Status: Acute Qualifiers: Trimester: second trimester Qualified Code(s): O14.92 - Unspecified pre- eclampsia, second trimester (2) PIH ( induced hypertension) Current Visit: Yes Status: Acute Qualifiers: Trimester: second trimester Qualified Code(s): O13.2 - Gestational [-induced] hypertension without significant proteinuria, second trimester Subjective - Subjective Date of service: 11/18/20 Principal diagnosis: preeclampsia Interval history: IUP at 27.4 weeks,preeclampsia Faye Salas MSNRN at bedside. I called a section for non-reassuring heart tracing. I was notified that the patient and her family were declining delivery. At bedside with a case therapist I explained the risks of declining delivery include but are not limited to maternal and . I explained the absence of variability and the pathophysiology behind repetitive variables. Patient is concerned about extreme prematurity and I explained that it is my job to balance maternal vs well being and that at some point her baby would be better served in the NICU as opposed to a uterine environment that is compromised. I explained absent end diastolic flow and the etiology behind increased placenta vascular resistance. She continues to be reluctant for operative delivery or intervention at any time. I explained that it is reasonable to place pt on the OR schedule for tomorrow and monitor closely and deliver for emergent intervention only this evening to give pt and her family time to consider all options and review what we discussed at bedside this evening. I have reviewed the case with [facility] over the phone(Dr Bean)--I have asked that [facility] review the case in the AM. The recommendation continues to be delivery however given pts reluctance will continue to monitor and treat conservatively. Kalpana Yen MD Objective - Vital Signs Vital Signs: Vital Signs - 12hr 11/18/20 11/18/20 11/18/20 06:06 06:07 06:11 Temperature Pulse Rate 70 74 73 Respiratory Rate Blood Pressure Blood Pressure [Left] O2 Sat by Pulse 96 94 95 Oximetry 11/18/20 11/18/20 11/18/20 06:12 06:16 06:21 Temperature Pulse Rate 71 73 80 Respiratory Rate Blood Pressure Blood Pressure [Left] O2 Sat by Pulse 94 95 97 Oximetry 11/18/20 11/18/20 11/18/20 06:26 06:27 06:31 Temperature Pulse Rate 76 74 77 Respiratory Rate Blood Pressure 134/78 Blood Pressure [Left] O2 Sat by Pulse 98 96 Oximetry 11/18/20 11/18/20 11/18/20 06:36 06:41 06:46 Temperature Pulse Rate 76 76 76 Respiratory Rate Blood Pressure Blood Pressure [Left] O2 Sat by Pulse 97 97 96 Oximetry 11/18/20 11/18/20 11/18/20 06:51 06:54 06:56 Temperature Pulse Rate 74 77 77 Respiratory Rate Blood Pressure Blood Pressure [Left] O2 Sat by Pulse 95 94 95 Oximetry 11/18/20 11/18/20 11/18/20 06:57 07:01 07:05 Temperature 98.6 F Pulse Rate 75 78 75 Respiratory 16 Rate Blood Pressure 135/77 Blood Pressure 135/77 [Left] O2 Sat by Pulse 95 98 Oximetry 11/18/20 11/18/20 11/18/20 07:06 07:11 07:16 Temperature Pulse Rate 77 76 77 Respiratory Rate Blood Pressure Blood Pressure [Left] O2 Sat by Pulse 97 96 97 Oximetry 11/18/20 11/18/20 11/18/20 07:21 07:26 07:27 Temperature Pulse Rate 77 75 75 Respiratory Rate Blood Pressure 130/76 Blood Pressure [Left] O2 Sat by Pulse 97 96 Oximetry 11/18/20 11/18/20 11/18/20 07:31 07:36 07:41 Temperature Pulse Rate 77 76 75 Respiratory Rate Blood Pressure Blood Pressure [Left] O2 Sat by Pulse 97 97 95 Oximetry 11/18/20 11/18/20 11/18/20 07:46 07:47 07:51 Temperature Pulse Rate 82 82 77 Respiratory Rate Blood Pressure 130/76 Blood Pressure [Left] O2 Sat by Pulse 95 92 93 Oximetry 11/18/20 11/18/20 11/18/20 07:56 07:58 08:01 Temperature Pulse Rate 75 75 77 Respiratory Rate Blood Pressure 138/80 Blood Pressure [Left] O2 Sat by Pulse 93 94 Oximetry 11/18/20 11/18/20 11/18/20 08:06 08:07 08:11 Temperature Pulse Rate 74 77 77 Respiratory Rate Blood Pressure Blood Pressure [Left] O2 Sat by Pulse 94 94 94 Oximetry 11/18/20 11/18/20 11/18/20 08:13 08:16 08:21 Temperature Pulse Rate 82 79 77 Respiratory Rate Blood Pressure Blood Pressure [Left] O2 Sat by Pulse 94 92 93 Oximetry 11/18/20 11/18/20 11/18/20 08:24 08:26 08:28 Temperature Pulse Rate 76 76 76 Respiratory Rate Blood Pressure 137/82 Blood Pressure [Left] O2 Sat by Pulse 94 94 Oximetry 11/18/20 11/18/20 11/18/20 08:31 08:35 08:36 Temperature Pulse Rate 76 74 75 Respiratory Rate Blood Pressure Blood Pressure [Left] O2 Sat by Pulse 94 94 94 Oximetry 11/18/20 11/18/20 11/18/20 08:41 08:46 08:51 Temperature Pulse Rate 75 74 75 Respiratory Rate Blood Pressure Blood Pressure [Left] O2 Sat by Pulse 93 93 94 Oximetry 11/18/20 11/18/20 11/18/20 08:53 08:56 09:01 Temperature Pulse Rate 74 74 75 Respiratory Rate Blood Pressure Blood Pressure [Left] O2 Sat by Pulse 94 94 94 Oximetry 11/18/20 11/18/20 11/18/20 09:05 09:06 09:11 Temperature Pulse Rate 75 74 74 Respiratory Rate Blood Pressure 122/65 Blood Pressure [Left] O2 Sat by Pulse 93 91 Oximetry 11/18/20 11/18/20 11/18/20 09:16 09:21 09:26 Temperature Pulse Rate 74 74 74 Respiratory Rate Blood Pressure Blood Pressure [Left] O2 Sat by Pulse 92 94 92 Oximetry 11/18/20 11/18/20 11/18/20 09:28 09:31 09:32 Temperature Pulse Rate 73 75 77 Respiratory Rate Blood Pressure 130/64 Blood Pressure [Left] O2 Sat by Pulse 94 94 Oximetry 11/18/20 11/18/20 11/18/20 09:36 09:41 09:46 Temperature Pulse Rate 74 74 74 Respiratory Rate Blood Pressure Blood Pressure [Left] O2 Sat by Pulse 93 92 92 Oximetry 11/18/20 11/18/20 11/18/20 09:51 09:56 09:57 Temperature Pulse Rate 76 76 70 Respiratory Rate Blood Pressure 131/77 Blood Pressure [Left] O2 Sat by Pulse 92 93 Oximetry 11/18/20 11/18/20 11/18/20 10:01 10:06 10:11 Temperature Pulse Rate 74 75 75 Respiratory Rate Blood Pressure Blood Pressure [Left] O2 Sat by Pulse 92 92 93 Oximetry 11/18/20 11/18/20 11/18/20 10:16 10:21 11:09 Temperature Pulse Rate 74 78 75 Respiratory Rate Blood Pressure Blood Pressure [Left] O2 Sat by Pulse 93 93 0 L Oximetry 11/18/20 11/18/20 11/18/20 11:10 11:13 11:14 Temperature Pulse Rate 74 69 69 Respiratory Rate Blood Pressure 137/67 Blood Pressure [Left] O2 Sat by Pulse 94 94 Oximetry 11/18/20 11/18/20 11/18/20 11:15 11:19 11:20 Temperature Pulse Rate 68 70 69 Respiratory Rate Blood Pressure Blood Pressure [Left] O2 Sat by Pulse 94 94 94 Oximetry 11/18/20 11/18/20 11/18/20 11:25 11:27 11:30 Temperature Pulse Rate 71 68 67 Respiratory Rate Blood Pressure 137/69 Blood Pressure [Left] O2 Sat by Pulse 94 94 Oximetry 11/18/20 11/18/20 11/18/20 11:35 11:40 11:45 Temperature Pulse Rate 70 69 64 Respiratory Rate Blood Pressure Blood Pressure [Left] O2 Sat by Pulse 94 95 95 Oximetry 11/18/20 11/18/20 11/18/20 11:49 11:50 11:55 Temperature Pulse Rate 67 73 65 Respiratory Rate Blood Pressure Blood Pressure [Left] O2 Sat by Pulse 89 88 93 Oximetry 11/18/20 11/18/20 11/18/20 11:58 12:00 12:05 Temperature Pulse Rate 67 65 67 Respiratory Rate Blood Pressure 137/72 Blood Pressure [Left] O2 Sat by Pulse 94 94 Oximetry 11/18/20 11/18/20 11/18/20 12:10 12:15 12:20 Temperature Pulse Rate 63 64 66 Respiratory Rate Blood Pressure Blood Pressure [Left] O2 Sat by Pulse 95 94 92 Oximetry 11/18/20 11/18/20 11/18/20 12:25 12:28 12:30 Temperature Pulse Rate 63 69 66 Respiratory Rate Blood Pressure 158/77 Blood Pressure [Left] O2 Sat by Pulse 94 94 Oximetry 11/18/20 11/18/20 11/18/20 12:35 12:40 12:45 Temperature Pulse Rate 69 65 68 Respiratory Rate Blood Pressure Blood Pressure [Left] O2 Sat by Pulse 94 94 94 Oximetry 11/18/20 11/18/20 11/18/20 12:50 12:55 12:58 Temperature Pulse Rate 68 67 69 Respiratory Rate Blood Pressure 173/87 Blood Pressure [Left] O2 Sat by Pulse 93 92 Oximetry 11/18/20 11/18/20 11/18/20 13:00 13:04 13:05 Temperature Pulse Rate 74 73 70 Respiratory Rate Blood Pressure 173/87 Blood Pressure [Left] O2 Sat by Pulse 95 95 Oximetry 11/18/20 11/18/20 11/18/20 13:10 13:15 13:20 Temperature Pulse Rate 78 62 67 Respiratory Rate Blood Pressure 156/72 Blood Pressure [Left] O2 Sat by Pulse 95 95 96 Oximetry 11/18/20 11/18/20 11/18/20 13:25 13:27 13:30 Temperature Pulse Rate 66 67 64 Respiratory Rate Blood Pressure 153/75 Blood Pressure [Left] O2 Sat by Pulse 96 95 Oximetry 11/18/20 11/18/20 11/18/20 13:35 13:40 13:45 Temperature Pulse Rate 64 66 65 Respiratory Rate Blood Pressure Blood Pressure [Left] O2 Sat by Pulse 95 94 95 Oximetry 11/18/20 11/18/20 11/18/20 13:50 13:55 13:57 Temperature Pulse Rate 66 68 63 Respiratory Rate Blood Pressure 140/73 Blood Pressure [Left] O2 Sat by Pulse 93 95 Oximetry 11/18/20 11/18/20 11/18/20 14:00 14:05 14:10 Temperature Pulse Rate 64 67 64 Respiratory Rate Blood Pressure Blood Pressure [Left] O2 Sat by Pulse 95 96 94 Oximetry 11/18/20 11/18/20 11/18/20 14:15 14:20 14:25 Temperature Pulse Rate 65 63 62 Respiratory Rate Blood Pressure Blood Pressure [Left] O2 Sat by Pulse 94 94 93 Oximetry 11/18/20 11/18/20 11/18/20 14:27 14:30 14:35 Temperature Pulse Rate 60 65 65 Respiratory Rate Blood Pressure 145/74 Blood Pressure [Left] O2 Sat by Pulse 94 93 Oximetry 11/18/20 11/18/20 11/18/20 14:40 14:45 14:50 Temperature Pulse Rate 71 66 60 Respiratory Rate Blood Pressure Blood Pressure [Left] O2 Sat by Pulse 95 92 91 Oximetry 07/11/18/20 11/18/20 14:55 14:58 15:00 Temperature Pulse Rate 59 L 62 60 Respiratory Rate Blood Pressure 162/78 Blood Pressure [Left] O2 Sat by Pulse 91 91 Oximetry 11/18/20 11/18/20 11/18/20 15:05 15:10 15:15 Temperature Pulse Rate 66 61 60 Respiratory Rate Blood Pressure Blood Pressure [Left] O2 Sat by Pulse 95 96 93 Oximetry 11/18/20 11/18/20 11/18/20 15:20 15:25 15:28 Temperature Pulse Rate 62 61 58 L Respiratory Rate Blood Pressure 149/74 Blood Pressure [Left] O2 Sat by Pulse 93 93 Oximetry 11/18/20 11/18/20 11/18/20 15:29 15:30 15:35 Temperature Pulse Rate 61 62 60 Respiratory Rate Blood Pressure 146/75 Blood Pressure [Left] O2 Sat by Pulse 95 94 Oximetry 11/18/20 11/18/20 11/18/20 15:40 15:45 15:50 Temperature Pulse Rate 62 65 66 Respiratory Rate Blood Pressure Blood Pressure [Left] O2 Sat by Pulse 94 95 96 Oximetry 11/18/20 11/18/20 11/18/20 15:55 15:56 15:57 Temperature Pulse Rate 65 65 63 Respiratory Rate Blood Pressure 142/70 141/68 Blood Pressure [Left] O2 Sat by Pulse 95 Oximetry 11/18/20 11/18/20 11/18/20 16:00 16:05 16:10 Temperature Pulse Rate 66 64 64 Respiratory Rate Blood Pressure Blood Pressure [Left] O2 Sat by Pulse 95 96 95 Oximetry 11/18/20 11/18/20 11/18/20 16:15 16:20 16:25 Temperature Pulse Rate 66 70 67 Respiratory Rate Blood Pressure Blood Pressure [Left] O2 Sat by Pulse 95 96 95 Oximetry 11/18/20 11/18/20 11/18/20 16:28 16:30 16:35 Temperature Pulse Rate 65 64 69 Respiratory Rate Blood Pressure 149/77 Blood Pressure [Left] O2 Sat by Pulse 95 95 Oximetry 11/18/20 11/18/20 11/18/20 16:40 16:45 16:50 Temperature Pulse Rate 70 64 72 Respiratory Rate Blood Pressure Blood Pressure [Left] O2 Sat by Pulse 95 96 96 Oximetry 11/18/20 11/18/20 11/18/20 16:55 16:58 17:00 Temperature Pulse Rate 69 67 68 Respiratory Rate Blood Pressure 151/77 Blood Pressure [Left] O2 Sat by Pulse 95 95 Oximetry 11/18/20 11/18/20 11/18/20 17:05 17:10 17:15 Temperature Pulse Rate 68 65 68 Respiratory Rate Blood Pressure Blood Pressure [Left] O2 Sat by Pulse 95 97 96 Oximetry 11/18/20 11/18/20 11/18/20 17:20 17:25 17:28 Temperature Pulse Rate 67 67 75 Respiratory Rate Blood Pressure 144/86 Blood Pressure [Left] O2 Sat by Pulse 96 96 Oximetry 11/18/20 11/18/20 17:30 17:35 Temperature Pulse Rate 70 69 Respiratory Rate Blood Pressure Blood Pressure [Left] O2 Sat by Pulse 95 94 Oximetry - Labs Labs: Abnormal Labs 11/13/20 11/14/20 11/16/20 14:00 13:30 06:14 WBC Creatinine 0.3 L POC Glucose 119 H Magnesium AST Lactate Dehydrogenase Urine Creatinine 41.5 H Ur Total Protein 24 Hr 581.74 H Urine Total Protein 17 H 11/16/20 11/16/20 11/16/20 11:02 11:02 15:20 WBC 15.4 H Creatinine 0.3 L POC Glucose Magnesium 4.10 H AST 41 H Lactate Dehydrogenase Urine Creatinine Ur Total Protein 24 Hr Urine Total Protein 11/16/20 11/17/20 11/17/20 18:28 01:25 06:26 WBC Creatinine POC Glucose 112 H Magnesium 4.60 H 4.80 H AST Lactate Dehydrogenase Urine Creatinine Ur Total Protein 24 Hr Urine Total Protein 11/17/20 11/17/20 11/17/20 08:49 08:49 14:14 WBC 14.5 H Creatinine 0.3 L POC Glucose 107 H Magnesium 5.50 H AST Lactate Dehydrogenase 216 H Urine Creatinine Ur Total Protein 24 Hr Urine Total Protein 11/17/20 11/18/20 15:03 06:25 WBC Creatinine POC Glucose 115 H Magnesium 5.30 H AST Lactate Dehydrogenase Urine Creatinine Ur Total Protein 24 Hr Urine Total Protein Laboratory Results - last 24 hr 11/18/20 06:25 POC Glucose 115 H
[2020-11-18] MEDS: NIFEdipine XL 30 MG TAB PO SCH (22:05)
[2020-11-19] MEDS: hydrALAZINE 20 MG/1 ML INJ IV PRN (05:23)
[2020-11-19 06:12] LABS: Hematocrit 33.7 % (30.3-42.9); Hemoglobin 11.2 gm/dl (10.1-14.3); Mean Corpuscular HGB Conc 33 % (30-34); Mean Corpuscular Volume 88 fl (79-97); Platelet Count 149 K/mm3 (140-440); Red Blood Count 3.82 M/mm3 (3.65-5.03); Red Cell Distribution Width 14.6 % (13.2-15.2)
[2020-11-19 06:33] LABS: Alanine Aminotransferase 37 units/L (7-56); Uric Acid 5.4 mg/dL (3.5-7.6)
[2020-11-19] MEDS ORDERED: SODIUM CHLORIDE 0.9% 500 ML 500 ML IV SCH (09:00)
[2020-11-19] MEDS ORDERED: LACTATED RINGERS 1,000 ML IV SCH (10:00)
[2020-11-19] MEDS ORDERED: MORPHINE PF 10MG/10 ML AMPULE ONE (10:01)
[2020-11-19] MEDS ORDERED: ONDANSETRON 4 MG/2 ML INJ ONE (10:02)
[2020-11-19] MEDS ORDERED: BUPIVACAINE /DEX-WATER 0.75% (2 ML) AMPULE INFILTRATI ONE (10:02)
[2020-11-19] MEDS ORDERED: KETOROLAC 30 MG/1 ML INJ ONE (10:02)
--- NOTE | 2020-11-19 10:03 | Progress Note ---
Assessment and Plan - Patient Problems (1) Preeclampsia Current Visit: Yes Status: Acute Qualifiers: Trimester: second trimester Qualified Code(s): O14.92 - Unspecified pre- eclampsia, second trimester (2) PIH ( induced hypertension) Current Visit: Yes Status: Acute Qualifiers: Trimester: second trimester Qualified Code(s): O13.2 - Gestational [-induced] hypertension without significant proteinuria, second trimester Subjective - Subjective Date of service: 11/19/20 Principal diagnosis: preeclampsia Interval history: IUP at 27.5weeks,preeclampsia with non reassuring heart tones informed consent obtained 2 units on hold PRBCs anesthesia notified plan for classical section Kalpana Yen MD Objective - Vital Signs Vital Signs: Vital Signs - 12hr 11/18/20 11/18/20 11/18/20 22:04 22:09 22:13 Temperature Pulse Rate 70 70 67 Blood Pressure 157/80 O2 Sat by Pulse 94 94 Oximetry 11/18/20 11/18/20 11/18/20 22:14 22:19 22:24 Temperature Pulse Rate 65 67 65 Blood Pressure O2 Sat by Pulse 93 92 93 Oximetry 11/18/20 11/18/20 11/18/20 22:29 22:34 22:39 Temperature Pulse Rate 64 66 65 Blood Pressure O2 Sat by Pulse 93 93 93 Oximetry 11/18/20 11/18/20 11/18/20 22:43 22:44 22:49 Temperature Pulse Rate 69 68 65 Blood Pressure 159/83 O2 Sat by Pulse 93 92 Oximetry 11/18/20 11/18/20 11/18/20 22:54 22:59 23:04 Temperature Pulse Rate 66 65 67 Blood Pressure O2 Sat by Pulse 92 93 93 Oximetry 11/18/20 11/18/20 11/18/20 23:09 23:13 23:14 Temperature Pulse Rate 62 71 67 Blood Pressure 159/84 O2 Sat by Pulse 94 94 Oximetry 11/18/20 11/18/20 11/18/20 23:19 23:24 23:29 Temperature Pulse Rate 65 66 65 Blood Pressure O2 Sat by Pulse 93 93 94 Oximetry 11/18/20 11/18/20 11/18/20 23:34 23:39 23:43 Temperature Pulse Rate 70 70 68 Blood Pressure 181/86 O2 Sat by Pulse 100 100 Oximetry 07/11/18/20 11/18/20 23:44 23:49 23:54 Temperature Pulse Rate 73 60 70 Blood Pressure O2 Sat by Pulse 100 100 100 Oximetry 11/18/20 11/19/20 11/19/20 23:59 00:04 00:09 Temperature Pulse Rate 62 62 63 Blood Pressure O2 Sat by Pulse 100 99 99 Oximetry 11/19/20 11/19/20 11/19/20 00:13 00:14 00:19 Temperature Pulse Rate 71 68 68 Blood Pressure 179/85 O2 Sat by Pulse 99 99 Oximetry 11/19/20 11/19/20 11/19/20 00:24 00:29 00:30 Temperature Pulse Rate 63 71 70 Blood Pressure 137/70 O2 Sat by Pulse 99 93 Oximetry 11/19/20 11/19/20 11/19/20 00:34 00:39 00:43 Temperature Pulse Rate 70 67 64 Blood Pressure 136/71 O2 Sat by Pulse 93 92 Oximetry 11/19/20 11/19/20 11/19/20 00:44 00:49 00:54 Temperature Pulse Rate 67 68 63 Blood Pressure O2 Sat by Pulse 92 92 92 Oximetry 11/19/20 11/19/20 11/19/20 00:59 01:04 01:09 Temperature Pulse Rate 64 60 73 Blood Pressure O2 Sat by Pulse 92 94 91 Oximetry 11/19/20 11/19/20 11/19/20 01:14 01:18 01:19 Temperature Pulse Rate 69 70 64 Blood Pressure 155/74 O2 Sat by Pulse 92 88 92 Oximetry 11/19/20 11/19/20 11/19/20 01:24 01:29 01:31 Temperature Pulse Rate 69 67 79 Blood Pressure O2 Sat by Pulse 93 91 86 Oximetry 11/19/20 11/19/20 11/19/20 01:34 01:39 01:44 Temperature Pulse Rate 66 64 69 Blood Pressure 160/72 O2 Sat by Pulse 91 92 92 Oximetry 11/19/20 11/19/20 11/19/20 01:49 01:53 01:54 Temperature Pulse Rate 67 77 67 Blood Pressure O2 Sat by Pulse 92 89 89 Oximetry 11/19/20 11/19/20 11/19/20 01:59 02:04 02:05 Temperature Pulse Rate 78 70 67 Blood Pressure 159/80 O2 Sat by Pulse 89 91 Oximetry 11/19/20 11/19/20 11/19/20 02:09 02:13 02:14 Temperature Pulse Rate 63 62 62 Blood Pressure 158/81 O2 Sat by Pulse 97 97 Oximetry 11/19/20 11/19/20 11/19/20 02:19 02:24 02:29 Temperature Pulse Rate 62 70 63 Blood Pressure O2 Sat by Pulse 97 97 97 Oximetry 11/19/20 11/19/20 11/19/20 02:34 02:39 02:43 Temperature Pulse Rate 65 64 67 Blood Pressure 152/72 O2 Sat by Pulse 97 97 Oximetry 11/19/20 11/19/20 11/19/20 02:44 02:49 02:54 Temperature Pulse Rate 60 76 63 Blood Pressure O2 Sat by Pulse 97 97 97 Oximetry 11/19/20 11/19/20 11/19/20 02:59 03:04 03:09 Temperature Pulse Rate 77 67 66 Blood Pressure O2 Sat by Pulse 97 99 98 Oximetry 11/19/20 11/19/20 11/19/20 03:13 03:14 03:19 Temperature Pulse Rate 69 65 65 Blood Pressure 169/90 O2 Sat by Pulse 99 99 Oximetry 11/19/20 11/19/20 11/19/20 03:24 03:29 03:34 Temperature Pulse Rate 61 57 L 57 L Blood Pressure O2 Sat by Pulse 99 99 98 Oximetry 11/19/20 11/19/20 11/19/20 03:39 03:43 03:44 Temperature Pulse Rate 56 L 70 73 Blood Pressure 169/95 O2 Sat by Pulse 99 99 Oximetry 11/19/20 11/19/20 11/19/20 03:49 03:51 03:54 Temperature Pulse Rate 69 70 74 Blood Pressure 166/93 137/75 O2 Sat by Pulse 100 98 Oximetry 11/19/20 11/19/20 11/19/20 03:59 04:04 04:09 Temperature Pulse Rate 71 73 64 Blood Pressure O2 Sat by Pulse 96 95 96 Oximetry 11/19/20 11/19/20 11/19/20 04:13 04:14 04:19 Temperature Pulse Rate 71 66 73 Blood Pressure 155/85 O2 Sat by Pulse 95 93 Oximetry 11/19/20 11/19/20 11/19/20 04:24 04:29 04:34 Temperature Pulse Rate 71 69 65 Blood Pressure O2 Sat by Pulse 94 96 94 Oximetry 11/19/20 11/19/20 11/19/20 04:39 04:43 04:44 Temperature Pulse Rate 62 61 63 Blood Pressure 142/80 O2 Sat by Pulse 95 95 Oximetry 11/19/20 11/19/20 11/19/20 04:49 04:54 04:59 Temperature Pulse Rate 60 58 L 61 Blood Pressure O2 Sat by Pulse 95 95 96 Oximetry 11/19/20 11/19/20 11/19/20 05:04 05:09 05:13 Temperature Pulse Rate 58 L 60 60 Blood Pressure 171/81 O2 Sat by Pulse 95 96 Oximetry 11/19/20 11/19/20 11/19/20 05:14 05:19 05:24 Temperature Pulse Rate 62 67 65 Blood Pressure 168/87 O2 Sat by Pulse 96 95 97 Oximetry 11/19/20 11/19/20 11/19/20 05:26 05:29 05:34 Temperature Pulse Rate 71 70 63 Blood Pressure 158/87 O2 Sat by Pulse 97 97 Oximetry 11/19/20 11/19/20 11/19/20 05:39 05:43 05:44 Temperature Pulse Rate 63 67 67 Blood Pressure 158/78 O2 Sat by Pulse 98 98 Oximetry 11/19/20 11/19/20 11/19/20 05:49 05:54 05:59 Temperature Pulse Rate 65 70 75 Blood Pressure O2 Sat by Pulse 97 97 98 Oximetry 11/19/20 11/19/20 11/19/20 06:04 06:09 06:13 Temperature Pulse Rate 72 77 73 Blood Pressure 144/77 O2 Sat by Pulse 99 99 Oximetry 11/19/20 11/19/20 11/19/20 06:14 06:19 06:24 Temperature Pulse Rate 74 79 73 Blood Pressure O2 Sat by Pulse 98 99 99 Oximetry 11/19/20 11/19/20 11/19/20 06:29 06:34 06:39 Temperature Pulse Rate 76 78 75 Blood Pressure O2 Sat by Pulse 98 98 96 Oximetry 11/19/20 11/19/20 11/19/20 06:43 06:44 06:49 Temperature Pulse Rate 75 75 73 Blood Pressure 142/77 O2 Sat by Pulse 96 94 Oximetry 11/19/20 11/19/20 11/19/20 06:54 06:59 07:04 Temperature Pulse Rate 74 80 83 Blood Pressure O2 Sat by Pulse 99 97 95 Oximetry 11/19/20 11/19/20 11/19/20 07:09 07:12 07:13 Temperature Pulse Rate 80 78 75 Blood Pressure 153/76 146/74 O2 Sat by Pulse 96 Oximetry 11/19/20 11/19/20 11/19/20 07:14 07:19 07:24 Temperature Pulse Rate 78 77 73 Blood Pressure O2 Sat by Pulse 99 99 99 Oximetry 11/19/20 11/19/20 11/19/20 07:29 07:34 07:39 Temperature Pulse Rate 71 71 72 Blood Pressure O2 Sat by Pulse 98 98 98 Oximetry 11/19/20 11/19/20 11/19/20 07:43 07:44 07:49 Temperature Pulse Rate 68 75 71 Blood Pressure 143/73 O2 Sat by Pulse 98 98 Oximetry 11/19/20 11/19/20 11/19/20 07:54 07:59 08:01 Temperature Pulse Rate 68 73 77 Blood Pressure 150/80 O2 Sat by Pulse 98 98 Oximetry 11/19/20 11/19/20 11/19/20 08:04 08:06 08:09 Temperature Pulse Rate 80 72 72 Blood Pressure 140/73 O2 Sat by Pulse 98 99 Oximetry 11/19/20 11/19/20 11/19/20 08:13 08:14 08:19 Temperature Pulse Rate 70 73 70 Blood Pressure 135/73 O2 Sat by Pulse 99 99 Oximetry 11/19/20 11/19/20 11/19/20 08:24 08:29 08:34 Temperature Pulse Rate 71 78 73 Blood Pressure O2 Sat by Pulse 97 96 97 Oximetry 11/19/20 11/19/20 11/19/20 08:39 08:43 08:44 Temperature Pulse Rate 72 74 76 Blood Pressure 132/67 O2 Sat by Pulse 97 95 Oximetry 11/19/20 11/19/20 11/19/20 08:49 08:54 08:59 Temperature Pulse Rate 73 75 75 Blood Pressure O2 Sat by Pulse 97 97 98 Oximetry 11/19/20 11/19/20 11/19/20 09:04 09:09 09:13 Temperature 97.9 F Pulse Rate 81 74 72 Blood Pressure 126/58 O2 Sat by Pulse 96 98 Oximetry 11/19/20 11/19/20 11/19/20 09:14 09:19 09:24 Temperature Pulse Rate 72 69 70 Blood Pressure O2 Sat by Pulse 97 98 97 Oximetry 11/19/20 11/19/20 11/19/20 09:29 09:47 09:52 Temperature Pulse Rate 83 81 79 Blood Pressure O2 Sat by Pulse 93 94 94 Oximetry 11/19/20 09:57 Temperature Pulse Rate 80 Blood Pressure O2 Sat by Pulse 94 Oximetry - Labs Labs: Abnormal Labs 11/13/20 11/14/20 11/16/20 14:00 13:30 06:14 WBC Creatinine 0.3 L POC Glucose 119 H Magnesium AST Lactate Dehydrogenase Urine Creatinine 41.5 H Ur Total Protein 24 Hr 581.74 H Urine Total Protein 17 H Crossmatch 11/16/20 11/16/20 11/16/20 11:02 11:02 15:20 WBC 15.4 H Creatinine 0.3 L POC Glucose Magnesium 4.10 H AST 41 H Lactate Dehydrogenase Urine Creatinine Ur Total Protein 24 Hr Urine Total Protein Crossmatch 11/16/20 11/17/20 11/17/20 18:28 01:25 06:26 WBC Creatinine POC Glucose 112 H Magnesium 4.60 H 4.80 H AST Lactate Dehydrogenase Urine Creatinine Ur Total Protein 24 Hr Urine Total Protein Crossmatch 11/17/20 11/17/20 11/17/20 08:49 08:49 14:14 WBC 14.5 H Creatinine 0.3 L POC Glucose 107 H Magnesium 5.50 H AST Lactate Dehydrogenase 216 H Urine Creatinine Ur Total Protein 24 Hr Urine Total Protein Crossmatch 11/17/20 11/18/20 11/19/20 15:03 06:25 05:57 WBC 13.1 H Creatinine POC Glucose 115 H Magnesium 5.30 H AST Lactate Dehydrogenase Urine Creatinine Ur Total Protein 24 Hr Urine Total Protein Crossmatch 11/19/20 11/19/20 05:57 08:23 WBC Creatinine 0.3 L POC Glucose Magnesium AST 41 H Lactate Dehydrogenase 242 H Urine Creatinine Ur Total Protein 24 Hr Urine Total Protein Crossmatch See Detail Laboratory Results - last 24 hr 11/19/20 11/19/20 11/19/20 05:57 05:57 08:23 WBC 13.1 H RBC 3.82 Hgb 11.2 Hct 33.7 MCV 88 MCH 29 MCHC 33 RDW 14.6 Plt Count 149 Creatinine 0.3 L Estimated GFR > 60 Uric Acid 5.4 AST 41 H ALT 37 Lactate Dehydrogenase 242 H Blood Type A POSITIVE Antibody Screen Negative Crossmatch See Detail
[2020-11-19] MEDS: LACTATED RINGERS 1,000 ML IV SCH ×2 (10:09→15:15)
[2020-11-19] MEDS ORDERED: CARBOPROST TROMETHAMINE 250 MCG/1 ML INJ IM ONE (10:20)
[2020-11-19] MEDS ORDERED: miSOPROStol 200 MCG TAB ONE (10:20)
--- NOTE | 2020-11-19 10:20 | Anesthesia Day of Surgery ---
Anesthesia Day of Surgery - Day of Surgery Patient Examined: Yes Patient H&P Reviewed: Yes Patient is NPO: Yes Beta Blockers: No Cardiac Clearance: No Pulmonary Clearance: No Pablo's Test: N/A
--- NOTE | 2020-11-19 10:20 | Anesthesia Consultation ---
Anesthesia Consult and Med Hx Date of service: 11/19/20 - Airway Anesthetic Teeth Evaluation: Good ROM Head & Neck: Adequate Mental/Hyoid Distance: Adequate Mallampati Class: Class III Intubation Access Assessment: Possibly Difficult - Pulmonary Exam CTA: Yes - Cardiac Exam Cardiac Exam: RRR - Pre-Operative Health Status ASA Pre-Surgery Classification: ASA2 Proposed Anesthetic Plan: Spinal - Pulmonary Hx Smoking: No Hx Asthma: No Hx Sleep Apnea: No - Cardiovascular System Hx Hypertension: Yes (PIH) Hx Heart Attack/AMI: No Hx Angina: No - Central Nervous System Hx Seizures: No Hx Psychiatric Problems: No - Gastrointestinal Hx Gastroesophageal Reflux Disease: No - Endocrine Hx Renal Disease: No Hx Liver Disease: No Hx Insulin Dependent Diabetes: No Hx Non-Insulin Dependent Diabetes: No Hx Hypothyroidism: No Hx Hyperthyroidism: No - Hematic Hx Anemia: No Hx Sickle Cell Disease: No - Other Systems Hx Alcohol Use: Yes (PRIOR TO PREGENACY) Hx Obesity: Yes
[2020-11-19] MEDS ORDERED: BICITRA ORAL LIQD 30ML PO SCH (10:30)
[2020-11-19] MEDS ORDERED: ceFAZolin/Water 2 GM/20 ML 2 GM/20 ML SYRINGE IV NR (10:30)
[2020-11-19] MEDS ORDERED: FAMOTIDINE 20 MG/2 ML INJ IV SCH (10:30)
[2020-11-19] MEDS ORDERED: METOCLOPRAMIDE 10 MG/2 ML INJ IV SCH (10:30)
--- NOTE | 2020-11-19 10:50 | Procedure Note ---
OB Delivery Note - Delivery Date of Delivery: 11/19/20 Surgeon: DANIKA ABERNATHY Estimated blood loss: other (750ml) - Section Preop diagnosis: nonreassuring FHR tracing Postop diagnosis: same section procedure: other (classical section) Disposition: PACU Complications: none Narrative: Preop diagnosis: IUP at 27.5 weeks, chronic hypertension with severe preeclampsia, nonreassuring heart tracing, testing significant for absent end-diastolic flow the umbilical artery, breech presentation Postop diagnosis: Same delivered Procedure: Primary classical section via Pfannenstiel incision Surgeon: Dr. Danika Abernathy Insurance Adviser: Tracy Richardson Anesthesia spinal Complications none EBL 750ml IV fluids 1000mL Urine output 200mL, clear Drains Daley to gravity Findings: Viable male with weight and , normal uterus tubes and ovaries bilaterally Procedure: Patient was consented in room 2003, taken to the operating room where she received excellent spinal anesthesia. She was then placed in the dorsal supine position with a leftward tilt. The abdomen was prepped and draped in a sterile fashion, and a timeout was verified. Adequate anesthesia was confirmed prior to the skin incision. A Pfannenstiel skin incision was made with a scalpel taken down to the underlying structures and the fascia was incised in the midline. The incision was extended laterally with curved Velázquez scissors, the superior and inferior aspects of the fascial incisions were grasped with Dex clamps and the rectus muscles dissected sharply. The abdomen was entered bluntly in the midline carried down inferiorly with good visualization of the bladder. An Placido retractor was inserted atraumatically.The uterine incision was made sharply with a scalpel in a classical fashion. Extended superiorly and inferiorly bluntly. AROM clear fluid. The baby was delivered in breech presentation atraumatically. T there was a spontaneous cry at delivery. The cord was clamped and cut and baby handed to waiting NICU team. An intact placenta with three-vessel cord delivered manually. The uterus was then cleared of all clots and debris and the uterus exteriorized. The uterine incision was closed with 4 layers of 0 chromic with excellent hemostasis. Hemablast applied. The Placido retractor was removed. The abdomen was then irrigated with warm normal saline. A second look at the uterine incision assured hemostasis. The peritoneum and rectus muscles were approximated with 3-0 Vicryl. The fascia closed with 0 Vicryl in the usual fashion. The subcuticular structures were closed with interrupted sutures of 0 Vicryl and the skin closed with 4-0 Monocryl. A pressure dressing was applied. All sponge needle and instrument counts were correct x2. There were no complications. Mom to the recovery area and baby to NICU in stable condition. EBL 750 mL Kalpana Abernathy MD
[2020-11-19] MEDS ORDERED: ceFAZolin/STERILE WATER 2 GM/20 ML SYRINGE IV ONE (10:55)
[2020-11-19] MEDS ORDERED: HYDROmorphone 1 MG/1 ML INJ IV PRN (11:00)
[2020-11-19] MEDS ORDERED: NalbUPHINE 10 MG/1 ML INJ IV PRN (11:00)
[2020-11-19] MEDS ORDERED: PROMETHAZINE 25 MG RECT SUPP PR PRN ×2 (11:00→13:00)
[2020-11-19] MEDS ORDERED: NALOXONE 0.4 MG/1 ML INJ IV PRN ×2 (11:00→13:00)
[2020-11-19] MEDS ORDERED: ONDANSETRON 4 MG/2 ML INJ IV PRN ×2 (11:00→13:00)
[2020-11-19] MEDS ORDERED: PROMETHAZINE 25 MG TAB PO PRN (11:00)
[2020-11-19] MEDS ORDERED: OXYTOCIN DRIP 30 UNITS/500 ML BAG IV SCH ×2 (11:00→13:00)
[2020-11-19] MEDS ORDERED: diphenhydrAMINE 50 MG/ML VIAL IV PRN (11:00)
[2020-11-19] MEDS ORDERED: PHENYLEPHRINE/NS 1,000 MCG/10 ML SYRINGE (OR USE) IV ONE (11:11)
[2020-11-19] MEDS ORDERED: WATER FOR IRRIG STERILE 1,500 ML BOTTLE IR ONE (11:12)
[2020-11-19] MEDS ORDERED: SODIUM CHLORIDE 0.9% IRR 1,500 ML BOTTLE IR ONE (11:12)
[2020-11-19] MEDS ORDERED: MORPHINE 4 MG/1 ML INJ IV PRN (13:00)
[2020-11-19] MEDS ORDERED: ACETAMINOPHEN 325 MG TAB PO PRN (13:00)
[2020-11-19] MEDS ORDERED: SIMETHICONE 80 MG CHEW TAB PO PRN (13:00)
[2020-11-19] MEDS ORDERED: WITCH HAZEL/ GLYCERIN PAD TP PRN (13:00)
[2020-11-19] MEDS ORDERED: LANOLIN/ZINC/DIMETHICONE (LANSINOH) 7 GM TP PRN (13:00)
[2020-11-19] MEDS ORDERED: MORPHINE 2 MG/1 ML INJ IV PRN (13:00)
[2020-11-19] MEDS ORDERED: IBUPROFEN 600 MG TAB PO PRN (13:00)
[2020-11-19] MEDS ORDERED: IBUPROFEN 800 MG TAB PO PRN (13:00)
--- NOTE | 2020-11-19 13:10 | Progress Note ---
Spinal Anesthesia Block - Spinal Anesthesia Block Start Time: 10:54 Stop Time: 11:05 Performed by:: CE VORA Procedure: Spinal anesthesia block is being performed for [C/S]. H&P, labs have been reviewed. Patient's questions and concerns have been answered. Informed consent has been performed. Timeout has was performed. Patient in sitting position on side of bed. Sterile prep and drape was performed. 3 mL 1% lidocaine skin wheal at L [3]-L [4]. Needle introducer advanced. 25-gauge spinal needle advanced, [+] CSF [-] blood. [Marcaine 10mg, Precedex 5mcg, and Duramorph 0.2mg] Spinal dose was given. All needles removed. Patient tolerated procedure well.
[2020-11-19] MEDS ORDERED: MAGNESIUM SULFATE 40GM/1000ML 40 GM/1,000 ML BAG IV SCH (13:30)
[2020-11-19] MEDS: KETOROLAC 30 MG/1 ML INJ IV PRN (18:03)
--- NOTE | 2020-11-19 18:53 | Post Anesthesia Evaluation ---
- Post Anesthesia Evaluation Patient Participated: Yes Airway Patent: Yes Stable Respiratory Function: Yes Nausea/Vomiting: No Temp > 96.8F: Yes Pain Manageable: Yes Adequeate Hydration: Yes Anesthesia Complications: No Block Receding Appropriately: Yes Patient on Ventilator: No
[2020-11-19] MEDS ORDERED: SENNOSIDES 8.6 MG TAB PO PRN (22:00)
[2020-11-19] MEDS ORDERED: MAGNESIUM HYDROXIDE (MOM) ORAL LIQD UDC PO PRN (22:00)
--- NOTE | 2020-11-19 22:09 | Cat Scan Report ---
CTA CHEST WITH IV CONTRAST INDICATION / CLINICAL INFORMATION: Low Oxygen Sat., Post-. TECHNIQUE: Axial CT images were obtained through the chest after injection of 100 mL IV contrast. 3 plane MIP an d/or 3D reconstructions were produced. All CT scans at this location are performed using CT dose redu ction for JOSE MIGUEL by means of automated exposure control. COMPARISON: None available. FINDINGS: PULMONARY ARTERIES: No pulmonary emboli. THORACIC AORTA: No significant abnormality. HEART: Trace pericardial effusion. Heart size is normal. CORONARY ARTERIES: No significant calcification. PLEURA: Bilateral moderate size pleural effusions are present. No pneumothorax. LYMPH NODES: No significant adenopathy. LUNGS: Pulmonary opacities are present throughout both lungs most severe throughout both upper lobes. It is unclear if this is secondary to interstitial pulmonary edema persists possible pneumonia. I wo uld favor pulmonary edema. ADDITIONAL FINDINGS: None. UPPER ABDOMEN: There is 2.6 cm solid-appearing mass projecting from the upper pole of the left kidney anteriorly. This will need further evaluation with left renal ultrasound when the patient is clinica lly able. SKELETAL STRUCTURES: No significant osseous abnormality. IMPRESSION: 1. No CT evidence for pulmonary embolism. 2. Bilateral pulmonary opacities most severe throughout both upper lobes. The appearance is most sugg estive of prominent pulmonary edema but pneumonia is not entirely excluded. 3. Bilateral moderate-sized pleural effusions with mild bibasilar atelectasis. Trace pericardial effu tereza. 4. If there is clinical suspicion for amniotic emboli, this typically is not identified on CT imaging , and clinical correlation is recommended.. 5. There is a 2.6 cm solid appearing mass arising from the upper pole of the left kidney requiring fu rther evaluation with renal ultrasound. This can be done on a nonemergent basis when the patient is c linically able. Signer Name: Giselle Tubbs MD Signed: 11/19/2020 10:04 PM Workstation Name: [id number]
[2020-11-19] MEDS ORDERED: FUROSEMIDE 40 MG/4 ML INJ IV ONE (22:37)
[2020-11-19] MEDS: NIFEdipine XL 30 MG TAB PO SCH (22:46)
--- NOTE | 2020-11-19 23:17 | Event Note ---
Date: 11/19/20 nurse called me with Chest CT report, same without PE and pulm edema, pleural effusion and possible pneumonia noted. Pt currently sat 100% with non- rebreather mask at 10liter/min and therefore magnesium sulfate stopped, IV decreased to KVO, lasix 40mg IV given, consult to Dr. Watts (hospitalist environmental studies faculty member however unavailable in an active code on another pt). Will treat with IV rocephin and oral zithromax for presumed pneumonia. Will titrate oxygen therapy downwards and give oral antihypertensives labetalol 400mg. Pt comfortable and without pain. routine care and pt to remain on labor and delivery x24hrs. Await med team consult with Dr. Watts and verbal report of this current plan given to him by me. Pt also given report and accepts this plan of care. All questions encouraged and answered.
[2020-11-19] MEDS: AZITHROMYCIN 250 MG TAB PO SCH (23:26)
[2020-11-19] MEDS: cefTRIAXone/NS 2 GM/100 ML 2 GM/100 ML BAG IV SCH (23:27)
--- NOTE | 2020-11-20 00:37 | Consultation ---
History of Present Illness - Reason for Consult Consult date: 11/19/20 Respiratory distress, preeclampsia Requesting physician: MACRINA MARTIN - History of Present Illness Consult called by Dr. Martin -TOOL DESIGN CHECKER for 40-year-old female status post section for preeclampsia who had respiratory distress and had findings concerning for pleural effusion, pulmonary edema and or pneumonia on the CT angiogram. Patient had been given IV Lasix and also started on empiric IV antibiotics and placed on nonrebreather by the primary team. Patient currently lying comfortably in bed and denies any new problems. by the bedside. heat curer was also used during this history and physical. Labs were reviewed and significant findings were that of white count of 13.1 on the CBC done on 11/19/2020. Recent chemistry unremarkable. CTA significant for bilateral pulmonary opacities most severe throughout both upper lobes. Findings were suggestive of pulmonary edema but pneumonia is not excluded. Bilateral moderate-sized pleural effusion with mild bibasilar atelectasis. Trace pericardial effusion. Past History Past Medical History: other (3 vaginal deliveries) Past Surgical History: No surgical history Social history: , full code Family history: diabetes Medications and Allergies Allergies Allergy/AdvReac Type Severity Reaction Status Date / Time No Known Allergies Allergy Verified 11/13/20 13:18 Home Medications Medication Instructions Recorded Confirmed Last Taken Type Ibuprofen [Motrin] 600 mg PO Q8H PRN #60 tablet 11/19/20 Unknown Rx oxyCODONE /ACETAMINOPHEN [Percocet 1 tab PO Q6HR PRN #20 tablet 11/19/20 Unknown Rx 5/325] Active Meds: Active Medications Acetaminophen (Acetaminophen 325 Mg Tab) 650 mg PO Q4H PRN PRN Reason: Fever >100.5/NIETO Hydrocodone Bitart/Acetaminophen (Hydrocodone/Acetaminophen 5-325 Mg Tab) 1 each PO Q6H PRN PRN Reason: Pain, Moderate (4-6) Azithromycin (Azithromycin 250 Mg Tab) 500 mg PO QDAY SKYE; Protocol Stop: 11/25/20 22:59 Last Admin: 11/19/20 23:26 Dose: 500 mg Documented by: Diphenhydramine HCl (Diphenhydramine 50 Mg/Ml Vial) 12.5 mg IV Q2H PRN PRN Reason: Itching Hydralazine HCl (Hydralazine 20 Mg/1 Ml Inj) 10 mg IV Q30MIN PRN PRN Reason: Blood Pressure Last Admin: 11/19/20 05:23 Dose: 10 mg Documented by: Dextrose/Lactated Ringer's ([email or web address]) 1,000 mls @ 75 mls/hr IV DIRECT SKYE Last Admin: 11/16/20 14:45 Dose: 75 mls/hr Documented by: Lactated Ringer's (Lactated Ringers) 1,000 mls @ 75 mls/hr IV DIRECT SKYE Last Admin: 11/19/20 15:15 Dose: 75 mls/hr Documented by: Lactated Ringer's (Lactated Ringers) 1,000 mls @ 2,250 mls/hr IV PREOP SKYE Stop: 11/20/20 10:27 Oxytocin/Sodium Chloride (Pitocin/Ns 30 Unit/500ml) 30 units in 500 mls @ 40 mls/hr IV TITR SKYE; Protocol Ceftriaxone Sodium (Rocephin/Ns 2 Gm/100 Ml) 2 gm in 100 mls @ 200 mls/hr IV Q24H SKYE; Protocol Stop: 11/22/20 22:59 Last Admin: 11/19/20 23:27 Dose: 200 mls/hr Documented by: Ibuprofen (Ibuprofen 600 Mg Tab) 600 mg PO Q6H PRN PRN Reason: Pain, Mild (1-3) Ibuprofen (Ibuprofen 800 Mg Tab) 800 mg PO Q6H PRN PRN Reason: Pain, Moderate (4-6) Ketorolac Tromethamine (Ketorolac 30 Mg/1 Ml Inj) 30 mg IV Q8H PRN PRN Reason: Pain, Moderate (4-6) Stop: 11/24/20 17:37 Last Admin: 11/19/20 18:03 Dose: 30 mg Documented by: Labetalol HCl (Labetalol 200 Mg Tab) 400 mg PO TID [facility] Last Admin: 11/19/20 20:04 Dose: 400 mg Documented by: Magnesium Hydroxide (Magnesium Hydroxide (Mom) Oral Liqd Udc) 30 ml PO QHS PRN PRN Reason: Constip Unrelieved By Senna Morphine Sulfate (Morphine 2 Mg/1 Ml Inj) 2 mg IV Q4H PRN PRN Reason: Pain, Moderate (4-6) Morphine Sulfate (Morphine 4 Mg/1 Ml Inj) 4 mg IV Q4H PRN PRN Reason: Pain , Severe (7-10) Multi-Ingredient Ointment (Lanolin/Zinc/Dimethicone (Lansinoh) 7 Gm) 1 applic TP PRN PRN PRN Reason: dryness/cracking Naloxone HCl (Naloxone 0.4 Mg/1 Ml Inj) 0.1 mg IV Q2MIN PRN PRN Reason: Res Rate </= 8 or 02 SAT < 92% Nifedipine (Nifedipine Xl 30 Mg Tab) 30 mg PO QHS SKYE Last Admin: 11/19/20 22:46 Dose: 30 mg Documented by: Ondansetron HCl (Ondansetron 4 Mg/2 Ml Inj) 4 mg IV Q8H PRN PRN Reason: Nausea And Vomiting Promethazine HCl (Promethazine 25 Mg Tab) 25 mg PO Q6H PRN PRN Reason: Nausea And Vomiting Promethazine HCl (Promethazine 25 Mg Rect Supp) 25 mg ND Q6H PRN PRN Reason: N/V IF NPO AND NO IV ACCESS Senna (Sennosides 8.6 Mg Tab) 17.2 mg PO QHS PRN PRN Reason: Constipation Simethicone (Simethicone 80 Mg Chew Tab) 80 mg PO Q6H PRN PRN Reason: Gas pain Sodium Chloride (Sodium Chloride 0.9% 10 Ml Flush Syringe) 10 ml IV PRN PRN PRN Reason: flush Witch Sadie/Glycerin (Witch Sadie/ Glycerin Pad) 1 each TP PRN PRN PRN Reason: Hemorrhoids/cleansing/soothing Review of Systems Constitutional: no fever, no chills Ears, nose, mouth and throat: no nasal congestion, no sore throat Cardiovascular: no chest pain, no palpitations Respiratory: shortness of breath, no cough Gastrointestinal: no abdominal pain, no nausea, no vomiting, no diarrhea Genitourinary Female: no pelvic pain, no flank pain, no dysuria, no hematuria Musculoskeletal: no neck pain, no low back pain Integumentary: no rash, no pruritis Neurological: no headaches, no confusion Psychiatric: no anxiety, no depression Endocrine: no polyphagia, no polyuria, no nocturia Exam - Constitutional Vitals: Temp Pulse Resp BP Pulse Ox 97.8 F 58 L 20 155/86 100 11/19/20 20:10 11/20/20 00:26 11/19/20 20:33 11/20/20 00:26 11/20/20 00:22 General appearance: Present: no acute distress, well-nourished, obese - EENT Eyes: Present: PERRL, EOM intact. Absent: scleral icterus ENT: hearing intact, clear oral mucosa, dentition normal - Neck Neck: Present: supple, normal ROM - Respiratory Respiratory effort: normal Respiratory: bilateral: rales - Cardiovascular Rhythm: regular Heart Sounds: Present: S1 & S2. Absent: gallop, systolic murmur, diastolic murmur, rub, click - Extremities Extremities: no ischemia, pulses intact, pulses symmetrical, normal temperature, normal color, Full ROM Extremity abnormal: edema (2+ bilateral lower extremity edema) Peripheral Pulses: within normal limits - Abdominal General gastrointestinal: Present: soft, non-tender, non-distended, normal bowel sounds. Absent: mass - Integumentary Integumentary: Present: clear, warm, dry. Absent: rash - Musculoskeletal Musculoskeletal: strength equal bilaterally - Psychiatric Psychiatric: appropriate mood/affect, intact judgment & insight, memory intact, cooperative - Neurologic Neurologic: CNII-XII intact, no focal deficits, moves all extremities Results - Labs CBC & Chem 7: 11/19/20 05:57 11/19/20 05:57 Labs: Abnormal lab results 11/19/20 11/19/20 11/19/20 Range/Units 05:57 05:57 08:23 WBC 13.1 H (4.5-11.0) K/mm3 Creatinine 0.3 L (0.6-1.2) mg/dL AST 41 H (5-40) units/L Lactate Dehydrogenase 242 H (91-180) units/L Crossmatch See Detail Assessment and Plan - Patient Problems (1) Respiratory distress Current Visit: Yes Status: Acute Plan to address problem: Patient had significant history of preeclampsia. She is status post section. CT angiogram done was negative for pulmonary embolism. Findings however were concerning for pulmonary edema versus pneumonia. Patient will be started on diuretics and empiric IV antibiotics. We will also rule out cardiomyopathy. Echocardiogram scheduled. (2) PIH ( induced hypertension) Current Visit: Yes Status: Acute Qualifiers: Trimester: second trimester Qualified Code(s): O13.2 - Gestational [-induced] hypertension without significant proteinuria, second trimester Plan to address problem: We will continue on current antihypertensives and monitor vital signs closely. Patient currently on p.o. labetalol, Procardia and IV hydralazine as needed. (3) Preeclampsia Current Visit: Yes Status: Acute Qualifiers: Trimester: second trimester Qualified Code(s): O14.92 - Unspecified pre- eclampsia, second trimester Plan to address problem: Patient being managed by the primary team. She has received magnesium sulfate. (4) DVT prophylaxis Current Visit: Yes Status: Acute Plan to address problem: Patient currently on sequential compression device.
[2020-11-20 00:39] LABS: Hematocrit 31.6 % (30.3-42.9); Hemoglobin 10.6 gm/dl (10.1-14.3)
[2020-11-20] MEDS: KETOROLAC 30 MG/1 ML INJ IV PRN ×2 (09:14→15:44)
--- NOTE | 2020-11-20 09:21 | Progress Note ---
Assessment and Plan A: /postop day 1 S/P primary classical section. Chronic hypertension with superimposed preeclampsia with severe features. Pulmonary edema and possible pneumonia (being followed by hospitalist and by cardiology). Anemia. P: Continue Labetalol and Nifedipine. Oral iron supplementation. Continue antibiotics. Management per OB-AFTER SCHOOL CAREGIVER, cardiology and hospitalist. Subjective - Subjective Date of service: 11/20/20 Principal diagnosis: /postop day 1 S/P primary classical cearean section; preeclampsia Interval history: /postop day 1 S/P primary classical section. Preeclampsia with severe features superimposed on chronic hypertension. Blood pressures are controlled with Labetalol and Nifedipine. Patient is being seen by internal medicine and cardiology due to pulmonary edema and possible pneumonia. Patient is receiving antibiotics. Patient denies headache, visual disturbance, nausea or vomiting, leg pain, chest pain, or shortness of breath. Daley in place draining clear yellow urine. Patient is passing gas. Patient reports: bowel movement, no nauseated [place]: in NICU Objective - Vital Signs Latest vital signs: Vital Signs Temp Pulse Resp BP BP Pulse Ox 11/20/20 09:20 67 99 11/20/20 09:15 69 98 11/20/20 09:14 20 11/20/20 09:10 70 114/74 99 11/20/20 09:05 87 94 11/20/20 09:00 72 99 11/20/20 08:55 74 99 11/20/20 08:50 73 99 11/20/20 08:45 71 97 11/20/20 08:40 68 115/68 98 11/20/20 08:35 76 99 11/20/20 08:30 69 98 11/20/20 08:25 71 98 11/20/20 08:20 71 99 11/20/20 08:15 68 98 11/20/20 08:10 70 110/67 98 11/20/20 08:05 70 98 11/20/20 08:00 73 98 11/20/20 07:55 72 98 11/20/20 07:50 71 99 11/20/20 07:45 72 98 11/20/20 07:40 67 120/72 95 11/20/20 07:39 69 94 11/20/20 07:35 69 99 11/20/20 07:30 66 99 11/20/20 07:25 69 99 07/20/21 07:20 69 100 07/20/21 07:15 98.8 F 67 20 130/75 97 07/20/21 07:12 67 130/75 07/20/21 07:10 69 136/76 07/20/21 07:09 67 99 07/20/21 07:05 66 100 07/20/21 07:00 69 100 07/20/21 06:55 68 100 07/20/21 06:50 70 100 07/20/21 06:45 64 100 07/20/21 06:40 67 149/82 100 07/20/21 06:35 67 100 07/20/21 06:30 66 100 07/20/21 06:25 67 100 07/20/21 06:24 98.3 F 07/20/21 06:20 68 99 07/20/21 06:15 66 100 07/20/21 06:10 66 130/72 100 07/20/21 06:05 71 100 07/20/21 06:00 73 100 07/20/21 05:55 71 100 07/20/21 05:50 65 99 07/20/21 05:45 63 99 07/20/21 05:40 69 131/73 99 07/20/21 05:35 65 99 07/20/21 05:30 64 99 07/20/21 05:25 66 99 07/20/21 05:20 65 98 07/20/21 05:15 66 99 07/20/21 05:10 74 134/72 99 07/20/21 05:05 71 99 07/20/21 05:00 68 100 07/20/21 04:55 67 99 07/20/21 04:50 66 100 07/20/21 04:45 68 99 07/20/21 04:40 76 100 07/20/21 04:39 149/79 07/20/21 04:35 63 99 07/20/21 04:30 63 99 07/20/21 04:25 69 149/79 99 07/20/21 04:20 65 99 07/20/21 04:15 72 99 07/20/21 04:10 64 99 07/20/21 04:05 69 99 07/20/21 04:00 66 99 07/20/21 03:55 69 99 07/20/21 03:50 68 100 07/20/21 03:45 68 99 0720/21 03:40 65 99 20/21 03:35 62 99 0720/21 03:30 63 100 20/21 03:25 65 157/87 100 0720/21 03:20 64 100 20/21 03:15 65 100 20/21 03:10 68 100 20/21 03:05 68 99 11/20/20 03:00 64 99 11/20/20 02:55 79 92 11/20/20 02:54 71 94 2021 02:50 69 94 2021 02:49 69 94 11/20/20 02:45 69 94 11/20/20 02:43 72 94 11/20/20 02:39 74 93 11/20/20 02:35 29 L 88 11/20/20 02:33 69 99 11/20/20 02:27 67 99 11/20/20 02:25 67 159/85 11/20/20 02:22 64 98 11/20/20 02:17 61 97 11/20/20 02:12 72 98 11/20/20 02:07 62 98 11/20/20 02:02 64 98 11/20/20 01:57 63 98 20/21 01:52 61 98 11/20/ 01:47 62 98 20/21 01:42 60 99 21 01:37 61 99 20/21 01:32 59 L 99 11/20/20 01:27 62 99 20/ 01:26 63 156/82 11/20/20 01:22 62 99 20/21 01:17 60 98 20/21 01:12 61 99 20/21 01:07 61 98 20/21 01:02 60 99 20/21 00:57 63 99 20/21 00:52 59 L 99 20/21 00:47 59 L 99 0720/21 00:42 59 L 99 20/21 00:37 61 100 0720/21 00:32 63 100 0720/21 00:27 60 100 0720/21 00:26 58 L 155/86 20 00:22 62 100 07/20/21 00:17 60 100 07/20/21 00:12 61 100 11/20/20 00:07 62 100 11/20/20 00:02 69 99 11/19/20 23:57 68 100 11/19/20 23:52 61 100 11/19/20 23:47 65 100 11/19/20 23:42 63 100 11/19/20 23:37 61 100 11/19/20 23:33 60 100 11/19/20 23:27 64 100 11/19/20 23:26 61 152/87 11/19/20 23:23 59 L 100 11/19/20 23:17 58 L 100 11/19/20 23:13 58 L 99 11/19/20 23:07 57 L 100 11/19/20 23:02 57 L 100 11/19/20 22:57 57 L 100 11/19/20 22:52 59 L 100 11/19/20 22:48 64 100 11/19/20 22:42 58 L 100 11/19/20 22:37 59 L 100 11/19/20 22:32 60 100 11/19/20 22:27 58 L 100 11/19/20 22:26 56 L 156/86 11/19/20 22:22 62 100 11/19/20 22:18 60 99 11/19/20 22:12 58 L 99 11/19/20 22:07 61 99 11/19/20 22:04 68 142/85 94 11/19/20 22:02 67 95 11/19/20 21:23 73 76 L 11/19/20 21:22 65 99 11/19/20 21:16 63 100 11/19/20 21:12 63 100 11/19/20 21:06 63 100 11/19/20 21:01 64 99 11/19/20 20:57 62 99 11/19/20 20:51 68 99 11/19/20 20:46 67 99 11/19/20 20:41 63 100 11/19/20 20:36 60 100 11/19/20 20:33 20 100 11/19/20 20:31 62 100 11/19/20 20:26 59 L 100 11/19/20 20:25 58 L 146/79 11/19/20 20:21 68 100 11/19/20 20:16 64 100 07/19/21 20:12 66 100 11/19/20 20:10 97.8 F 20 100 11/19/20 20:06 65 100 0721 20:04 149/83 11/19/20 20:02 62 149/83 100 21 19:57 62 100 11/19/20 19:51 61 100 21 19:46 60 100 21 19:41 66 100 11/19/20 19:37 64 100 11/19/20 19:32 69 100 21 19:27 69 100 11/19/20 19:25 58 L 133/74 11/19/20 19:22 61 100 21 19:16 66 100 11/19/20 19:12 64 100 11/19/20 19:06 63 100 11/19/20 19:01 61 100 11/19/20 18:57 59 L 100 11/19/20 18:52 68 100 11/19/20 18:50 77 93 11/19/20 18:46 63 100 11/19/20 18:41 62 100 11/19/20 18:36 63 100 11/19/20 18:32 64 100 11/19/20 18:27 61 100 11/19/20 18:25 59 L 131/76 11/19/20 18:21 61 100 11/19/20 18:16 61 100 11/19/20 18:12 63 100 11/19/20 18:06 67 132/77 100 11/19/20 18:02 69 99 11/19/20 17:57 73 100 11/19/20 17:51 72 100 21 17:46 64 100 21 17:41 66 100 21 17:36 67 100 21 17:32 72 100 21 17:26 66 94 19/21 17:25 66 140/71 11/19/20 17:21 66 95 19/21 17:19 66 94 19/21 17:16 66 95 21 17:14 68 94 19/21 17:11 68 95 1921 17:06 65 95 1921 17:01 66 95 21 16:59 65 94 07/19/21 16:56 65 95 07/19/21 16:51 69 96 07/19/21 16:50 77 94 07/19/21 16:46 66 95 07/19/21 16:41 65 95 07/19/21 16:39 67 94 07/19/21 16:36 66 95 07/19/21 16:33 66 94 07/19/21 16:31 66 95 07/19/21 16:27 69 94 07/19/21 16:26 68 95 07/19/21 16:25 67 122/69 07/19/21 16:22 67 93 07/19/21 16:21 67 94 07/19/21 16:16 65 96 07/19/21 16:11 67 95 07/19/21 16:06 66 96 07/19/21 16:01 66 95 07/19/21 15:59 66 94 07/19/21 15:56 64 96 07/19/21 15:54 67 94 07/19/21 15:51 66 96 07/19/21 15:46 78 96 07/19/21 15:41 67 96 07/19/21 15:36 64 96 07/19/21 15:31 63 96 07/19/21 15:26 73 96 07/19/21 15:25 65 121/71 07/19/21 15:21 62 96 07/19/21 15:16 62 96 07/19/21 15:15 62 121/68 07/19/21 15:11 64 96 07/19/21 15:06 62 96 07/19/21 15:05 66 94 07/19/21 15:01 68 96 07/19/21 14:56 64 97 07/19/21 14:51 65 96 07/19/21 14:46 64 96 07/19/21 14:41 64 98 07/19/21 14:36 66 98 07/19/21 14:31 73 91 07/19/21 14:26 73 121/61 90 07/19/21 13:45 98.7 F 66 18 122/68 98 07/19/21 13:30 64 21 121/74 98 07/19/21 13:15 69 20 120/73 98 07/19/21 13:00 64 17 115/73 97 07/19/21 12:45 63 18 107/67 97 07/19/21 12:40 66 21 109/66 97 11/19/20 12:36 98.1 F 65 20 105/65 96 11/19/20 10:42 76 90 11/19/20 10:38 76 89 11/19/20 10:37 76 90 11/19/20 10:32 76 89 11/19/20 10:27 77 89 11/19/20 10:22 76 88 11/19/20 10:17 76 88 11/19/20 10:15 79 88 11/19/20 10:12 77 88 11/19/20 10:08 77 89 11/19/20 10:07 75 91 11/19/20 10:02 75 92 11/19/20 09:57 80 94 11/19/20 09:52 79 94 11/19/20 09:47 81 94 11/19/20 09:29 83 93 11/19/20 09:24 70 97 Intake and Output 11/19/20 11/20/20 11/20/20 23:59 07:59 15:59 Output Total 1400 3200 Balance -1400 -3200 Output: Urine 1400 3200 Indwelling Catheter 1400 3200 Other: Total, Output Amount 800 1300 - Exam Cardiovascular: Present: Regular rate Lungs: Present: Other (rales posterior jimenez bilaterally) Abdomen: Present: normal appearance, soft, normal bowel sounds. Absent: distention, tenderness, guarding, rigidity Uterus: Present: normal, firm, fundal height below umbilicus. Absent: bogginess, tenderness Extremities: Present: edema. Absent: tenderness Incision: Present: dry, dressed - Labs Labs: Abnormal lab results 11/19/20 Range/Units 08:23 Crossmatch See Detail
--- NOTE | 2020-11-20 09:22 | Consultation ---
History of Present Illness Consult date: 11/20/20 Requesting physician: JOSE L DINH Consult reason: congestive heart failure History of present illness: 40-year-old female no past medical history of hypertension congestive heart failure is was admitted to hospital for elevated blood pressure and preeclampsia patient had a breech delivery hypertensive urgency with respiratory failure. Patient was placed on BiPAP and 100% oxygen. Patient's CAT scan showed no pulmonary embolism but pulmonary edema questionable pneumonia. Patient denies a fever chills. Patient Covid negative. This morning after Lasix is on 40% and feeling better. Patient did have edema prior to. History of his pain from patient and patient's . Denies any previous issues with previous pregnancies or deliveries. Past History Past Medical History: other (3 vaginal deliveries) Past Surgical History: No surgical history Social history: , full code Family history: diabetes Medications and Allergies Allergies Allergy/AdvReac Type Severity Reaction Status Date / Time No Known Allergies Allergy Verified 11/13/20 13:18 Home Medications Medication Instructions Recorded Confirmed Last Taken Type Ibuprofen [Motrin] 600 mg PO Q8H PRN #60 tablet 11/19/20 Unknown Rx oxyCODONE /ACETAMINOPHEN [Percocet 1 tab PO Q6HR PRN #20 tablet 11/19/20 Unknown Rx 5/325] Active Meds: Active Medications Acetaminophen (Acetaminophen 325 Mg Tab) 650 mg PO Q4H PRN PRN Reason: Fever >100.5/NIETO Hydrocodone Bitart/Acetaminophen (Hydrocodone/Acetaminophen 5-325 Mg Tab) 1 each PO Q6H PRN PRN Reason: Pain, Moderate (4-6) Azithromycin (Azithromycin 250 Mg Tab) 500 mg PO QDAY [facility]; Protocol Stop: 11/25/20 22:59 Last Admin: 11/19/20 23:26 Dose: 500 mg Documented by: Diphenhydramine HCl (Diphenhydramine 50 Mg/Ml Vial) 12.5 mg IV Q2H PRN PRN Reason: Itching Furosemide (Furosemide 40 Mg/4 Ml Inj) 40 mg IV 0600,1800 [facility] Hydralazine HCl (Hydralazine 20 Mg/1 Ml Inj) 10 mg IV Q30MIN PRN PRN Reason: Blood Pressure Last Admin: 11/19/20 05:23 Dose: 10 mg Documented by: Dextrose/Lactated Ringer's ([email or web address]) 1,000 mls @ 75 mls/hr IV DIRECT SKYE Last Admin: 11/16/20 14:45 Dose: 75 mls/hr Documented by: Lactated Ringer's (Lactated Ringers) 1,000 mls @ 75 mls/hr IV DIRECT SKYE Last Admin: 11/19/20 15:15 Dose: 75 mls/hr Documented by: Lactated Ringer's (Lactated Ringers) 1,000 mls @ 2,250 mls/hr IV PREOP SKYE Stop: 11/20/20 10:27 Oxytocin/Sodium Chloride (Pitocin/Ns 30 Unit/500ml) 30 units in 500 mls @ 40 mls/hr IV TITR SKYE; Protocol Ceftriaxone Sodium (Rocephin/Ns 2 Gm/100 Ml) 2 gm in 100 mls @ 200 mls/hr IV Q24H [facility]; Protocol Stop: 11/22/20 22:59 Last Admin: 11/19/20 23:27 Dose: 200 mls/hr Documented by: Ibuprofen (Ibuprofen 600 Mg Tab) 600 mg PO Q6H PRN PRN Reason: Pain, Mild (1-3) Ibuprofen (Ibuprofen 800 Mg Tab) 800 mg PO Q6H PRN PRN Reason: Pain, Moderate (4-6) Ketorolac Tromethamine (Ketorolac 30 Mg/1 Ml Inj) 30 mg IV Q8H PRN PRN Reason: Pain, Moderate (4-6) Stop: 11/24/20 17:37 Last Admin: 11/20/20 09:14 Dose: 30 mg Documented by: Labetalol HCl (Labetalol 200 Mg Tab) 400 mg PO 0400,1200,2000 [facility] Last Admin: 11/20/20 04:39 Dose: 400 mg Documented by: Magnesium Hydroxide (Magnesium Hydroxide (Mom) Oral Liqd Udc) 30 ml PO QHS PRN PRN Reason: Constip Unrelieved By Senna Morphine Sulfate (Morphine 2 Mg/1 Ml Inj) 2 mg IV Q4H PRN PRN Reason: Pain, Moderate (4-6) Morphine Sulfate (Morphine 4 Mg/1 Ml Inj) 4 mg IV Q4H PRN PRN Reason: Pain , Severe (7-10) Multi-Ingredient Ointment (Lanolin/Zinc/Dimethicone (Lansinoh) 7 Gm) 1 applic TP PRN PRN PRN Reason: dryness/cracking Naloxone HCl (Naloxone 0.4 Mg/1 Ml Inj) 0.1 mg IV Q2MIN PRN PRN Reason: Res Rate </= 8 or 02 SAT < 92% Nifedipine (Nifedipine Xl 30 Mg Tab) 30 mg PO QHS SKYE Last Admin: 11/19/20 22:46 Dose: 30 mg Documented by: Ondansetron HCl (Ondansetron 4 Mg/2 Ml Inj) 4 mg IV Q8H PRN PRN Reason: Nausea And Vomiting Promethazine HCl (Promethazine 25 Mg Tab) 25 mg PO Q6H PRN PRN Reason: Nausea And Vomiting Promethazine HCl (Promethazine 25 Mg Rect Supp) 25 mg HI Q6H PRN PRN Reason: N/V IF NPO AND NO IV ACCESS Senna (Sennosides 8.6 Mg Tab) 17.2 mg PO QHS PRN PRN Reason: Constipation Simethicone (Simethicone 80 Mg Chew Tab) 80 mg PO Q6H PRN PRN Reason: Gas pain Sodium Chloride (Sodium Chloride 0.9% 10 Ml Flush Syringe) 10 ml IV PRN PRN PRN Reason: flush Witch Sadie/Glycerin (Witch Sadie/ Glycerin Pad) 1 each TP PRN PRN PRN Reason: Hemorrhoids/cleansing/soothing Review of Systems All systems: negative (As per the HPI) Physical Examination Vital Signs Pulse BP 50 L 146/87 11/13/20 12:43 11/13/20 12:43 General appearance: no acute distress, well-nourished HEENT: Positive: PERRL, Mucus Membranes Moist Neck: Positive: neck supple, trachea midline Cardiac: Positive: Reg Rate and Rhythm, S1/S2. Negative: Audible Murmur Lungs: Positive: Decreased Breath Sounds Neuro: Positive: Grossly Intact Abdomen: Positive: Soft, Active Bowel Sounds. Negative: Tender, Distended Female genitourinary: deferred Skin: Positive: Clear Incision: Cardiac Cath Site Musculoskeletal: No Pain, Normal Range of Motion Extremities: Present: normal. Absent: edema Results 11/20/20 00:18 11/19/20 05:57 CBC 11/20/20 Range/Units 00:18 Hgb 10.6 (10.1-14.3) gm/dl Hct 31.6 (30.3-42.9) % - Imaging and Cardiology Echo: pending Assessment and Plan 40-year-old female with hypertensive urgency and preeclampsia prior with acute heart failure continue with Lasix EKG follow input and output and metabolic panel echocardiogram for LV function discussed this with patient's primary and family - Patient Problems (1) Acute respiratory failure with hypoxia Current Visit: Yes Status: Acute (2) Acute heart failure Current Visit: Yes Status: Acute Qualifiers: Heart failure type: unspecified Qualified Code(s): I50.9 - Heart failure, unspecified (3) PIH ( induced hypertension) Current Visit: Yes Status: Acute Qualifiers: Trimester: second trimester Qualified Code(s): O13.2 - Gestational [-induced] hypertension without significant proteinuria, second trimester (4) Preeclampsia Current Visit: Yes Status: Acute Qualifiers: Trimester: second trimester Qualified Code(s): O14.92 - Unspecified pre- eclampsia, second trimester
--- NOTE | 2020-11-20 10:27 | Electrocardiograph Report ---
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
--- NOTE | 2020-11-20 14:50 | Event Note ---
Date: 11/20/20 This is the second visit after midnight Patient seen and examined Patient denies any chest pain, tolerating diet S1 and S2 positive, few bibasilar crackles, abdomen soft 40-year-old female status post section for preeclampsia who had respiratory distress and had findings concerning for pleural effusion, pulmonary edema and or pneumonia on the CT angiogram. Continue IV antibiotics for pneumonia, IV Lasix, follow cardiology recommendation and 2D echocardiogram result Continue to follow clinically, vitals noted and currently stable Recommend stopping IV fluids if tolerating diet -It took me about 28 minutes to reevaluate and reasses this patient, discussed with RN/CM, review medical documents, lab results, imaging, medication list and placing order.
[2020-11-20] MEDS: FERROUS SULFATE 325 MG TAB PO SCH (15:47)
[2020-11-20] MEDS: FUROSEMIDE 40 MG/4 ML INJ IV SCH (18:27)
[2020-11-20] MEDS: HYDROcodone/ACETAMINOPHEN 5-325 MG TAB PO PRN (23:37)
[2020-11-20] MEDS: NIFEdipine XL 30 MG TAB PO SCH (23:39)
[2020-11-20] MEDS: cefTRIAXone/NS 2 GM/100 ML 2 GM/100 ML BAG IV SCH (23:39)
[2020-11-21 04:35] LABS: Basophils # (Auto) 0.1 K/mm3 (0.0-0.1); Basophils % (Auto) 0.5 % (0.0-1.8); Eosinophils # (Auto) 0.2 K/mm3 (0.0-0.4); Eosinophils % (Auto) 1.1 % (0.0-4.3); Hematocrit 27.6 % (30.3-42.9); Hemoglobin 9.4 gm/dl (10.1-14.3); Lymphocytes # (Auto) 1.5 K/mm3 (1.2-5.4); Mean Corpuscular HGB Conc 34 % (30-34); Mean Corpuscular Volume 89 fl (79-97); Monocytes # (Auto) 0.8 K/mm3 (0.0-0.8); Monocytes % (Auto) 5.7 % (0.0-7.3); Platelet Count 129 K/mm3 (140-440); Red Blood Count 3.11 M/mm3 (3.65-5.03); Red Cell Distribution Width 14.4 % (13.2-15.2)
[2020-11-21 04:54] LABS: Alanine Aminotransferase 34 units/L (7-56); Albumin 2.4 g/dL (3.9-5); Blood Urea Nitrogen 11 mg/dL (7-17); Calcium 7.9 mg/dL (8.4-10.2); Hemolysis Index 6
[2020-11-21 04:55] LABS: BUN/Creatinine Ratio 28
[2020-11-21] MEDS: FUROSEMIDE 40 MG/4 ML INJ IV SCH (06:11)
[2020-11-21] MEDS: LACTATED RINGERS 1,000 ML IV SCH (07:01)
--- NOTE | 2020-11-21 09:51 | Progress Note ---
Assessment and Plan 40-year-old female post delivery who went into acute diastolic heart failure with hypertensive urgency resolved with Lasix and BP control. Normal LV function echocardiogram. Patient is not requiring oxygen. Continue labetalol and nifedipine for BP control continue Lasix 20 mg patient will follow up in the office in 1 to 2 weeks discussed this in detail with the patient patient's office number [phone] - Patient Problems (1) Acute respiratory failure with hypoxia Current Visit: Yes Status: Acute (2) Acute heart failure Current Visit: Yes Status: Acute Qualifiers: Heart failure type: diastolic Qualified Code(s): I50.31 - Acute diastolic (congestive) heart failure (3) PIH ( induced hypertension) Current Visit: Yes Status: Acute Qualifiers: Trimester: second trimester Qualified Code(s): O13.2 - Gestational [-induced] hypertension without significant proteinuria, second trimester (4) Preeclampsia Current Visit: Yes Status: Acute Qualifiers: Trimester: second trimester Qualified Code(s): O14.92 - Unspecified pre- eclampsia, second trimester Subjective Date of service: 11/21/20 Principal diagnosis: /postop day 1 S/P primary classical cearean section; preeclampsia Interval history: sob has resolved and swelling is better Objective Vital Signs Temp Pulse Resp BP BP BP Pulse Ox 11/21/20 09:47 72 95 11/21/20 09:42 70 97 11/21/20 09:37 74 96 11/21/20 09:32 69 99 11/21/20 09:27 71 97 11/21/20 09:22 73 99 11/21/20 09:17 78 97 11/21/20 09:15 77 94 11/21/20 09:12 78 97 11/21/20 09:01 78 97 11/21/20 08:58 87 94 11/21/20 08:56 78 95 11/21/20 08:53 81 94 11/21/20 08:51 77 96 11/21/20 08:46 84 96 11/21/20 08:41 83 94 11/21/20 08:36 78 96 11/21/20 08:31 73 96 11/21/20 08:26 73 98 11/21/20 08:21 78 96 11/21/20 08:16 71 96 11/21/20 08:11 74 96 11/21/20 08:06 75 97 07//21 08:01 69 96 07/21/21 07:56 74 97 07//21 07:51 74 97 07/21 07:43 74 96 //21 07:38 69 94 0721/21 07:33 72 96 07//21 07:28 71 96 07/21 07:25 74 94 11/21/21 07:23 75 97 07/21 07:18 71 96 11/21/21 07:17 72 94 07/21 07:13 77 95 11/21/21 07:06 75 94 11/21/21 07:03 73 95 07/21 07:01 81 94 11/21/21 06:58 79 97 11/21/21 06:53 72 97 11/21/21 06:48 75 95 11/21/21 06:46 77 94 11/21/21 06:43 72 95 11/21/21 06:38 80 94 11/21/21 06:25 78 96 11/21/21 06:20 85 93 07/21 06:19 80 125/74 07/21 06:18 80 94 07/21 06:15 74 18 125/74 96 07/21 06:14 76 125/74 11/21/21 06:12 79 94 11/21/21 06:10 83 98 07//21 06:05 69 97 //21 06:00 67 98 07/21/21 05:55 70 97 07//21 05:52 67 93 07/21/21 05:50 68 97 07/21 05:45 77 96 07//21 05:40 70 97 07/21/21 05:35 64 96 07/21/21 05:30 64 97 07/21/21 05:25 64 96 07/21/21 05:20 64 96 07/21/21 05:15 66 96 07/21/21 05:10 65 97 07/21/21 05:05 67 96 07/21/21 05:00 64 96 /21/21 04:55 64 97 07/21/21 04:50 71 96 0721/21 04:45 68 91 07/21/21 04:44 68 93 07/21 04:40 65 97 07/21/21 04:39 66 92 07/21/21 04:35 66 92 07/21/21 04:34 68 92 07/21/21 04:30 66 95 07/21/21 04:27 71 93 07/21/21 04:25 70 94 07/21/21 04:20 72 93 07/21/21 04:19 73 94 07/21/21 04:15 73 93 07/21/21 04:14 76 94 07/21/21 04:10 63 99 07/21/21 04:05 63 99 07/21/21 04:00 62 98 07/21/21 03:55 63 98 07/21/21 03:50 63 98 07/21/21 03:45 64 98 07/21/21 03:40 62 99 07//21 03:35 64 99 07//21 03:30 65 98 07//21 03:25 64 99 07/21/21 03:20 67 98 07//21 03:15 67 98 07//21 03:10 69 98 07//21 03:05 70 99 07/21/21 03:00 70 98 07//21 02:55 77 99 07/21/21 02:50 65 99 07/21/21 02:45 66 99 07/21/21 02:40 67 99 07//21 02:35 67 99 07//21 02:30 67 99 07//21 02:25 68 98 07/21/21 02:20 68 98 07/21/21 02:15 63 99 07/21/21 02:10 66 99 07//21 02:05 64 99 07//21 02:00 66 99 07/21/21 01:55 69 98 07/21/21 01:50 65 97 07/21/21 01:45 78 18 141/85 141/85 99 07/21/21 01:44 78 141/85 07/21/21 01:40 66 100 07/21/21 01:35 71 99 07/21/21 01:30 64 99 07/21/21 01:25 65 99 07/21/21 01:20 66 99 07/21/21 01:15 68 99 07/21/21 01:10 72 99 07/21/21 01:05 74 99 07/21/21 01:00 77 99 07/21/21 00:55 72 100 07/21/21 00:50 74 100 07/21/21 00:46 76 94 07/21/21 00:45 74 95 07/21/21 00:40 79 96 07/21/21 00:38 75 94 07/21/21 00:35 77 95 07/21/21 00:30 80 98 07/21/21 00:25 75 95 07/21/21 00:20 76 97 07/21/21 00:15 79 96 07/21/21 00:10 78 96 07/21/21 00:05 74 99 07/21/21 00:00 75 95 07/20/21 23:55 75 95 07/20/21 23:50 71 96 07/20/21 23:45 98.2 F 75 145/80 145/80 99 07/20/21 23:40 73 98 07/20/21 23:37 18 07/20/21 23:35 75 97 07/20/21 23:19 74 96 07/20/21 23:14 77 95 07/20/21 23:09 69 96 07/20/21 23:04 71 96 07/20/21 22:59 72 95 07/20/21 22:54 68 97 07/20/21 22:49 72 96 07/20/21 22:44 70 98 07/20/21 22:39 69 97 07/20/21 22:34 71 95 07/20/21 22:29 70 96 07/20/21 22:24 70 98 07/20/21 22:19 71 96 07/20/21 22:14 70 97 07/20/21 22:12 74 94 07/20/21 22:09 73 97 07/20/21 22:04 74 97 07/20/21 21:59 68 98 07/20/21 21:54 74 94 07/20/21 21:51 76 94 07/20/21 21:49 69 98 07/20/21 21:44 72 94 07/20/21 21:42 76 94 07/20/21 21:39 71 98 07/20/21 21:36 70 94 07/20/21 21:34 77 95 07/20/21 21:29 74 95 07/20/21 21:24 70 95 07/20/21 21:19 71 98 07/20/21 21:14 71 96 07/20/21 21:09 71 97 07/20/21 21:06 98.9 F 68 150/83 98 07/20/21 21:05 68 150/83 07/20/21 21:04 79 97 07/20/21 20:22 80 98 07/20/21 20:17 76 97 07/20/21 20:12 73 96 07/20/21 20:07 72 96 07/20/21 20:02 69 97 07/20/21 19:57 74 96 07/20/21 19:52 76 97 07/20/21 19:47 73 97 07/20/21 19:42 70 96 07/20/21 19:37 77 93 07/20/21 19:32 71 97 07/20/21 19:27 79 98 07/20/21 19:22 80 97 07/20/21 19:17 77 97 07/20/21 19:12 82 96 07/20/21 19:07 76 95 07/20/21 19:06 77 94 07/20/21 19:02 73 96 07/20/21 18:57 73 96 07/20/21 18:52 72 96 07/20/21 18:47 70 95 07/20/21 18:42 72 96 07/20/21 18:38 72 94 07/20/21 18:37 72 95 07/20/21 18:32 74 96 07/20/21 18:27 77 95 07/20/21 18:22 74 97 07/20/21 18:18 71 93 07/20/21 18:17 69 94 07/20/21 18:12 70 94 07/20/21 18:07 70 94 07/20/21 18:05 70 93 07/20/21 18:02 70 94 07/20/21 18:00 72 93 07/20/21 17:57 72 93 07/20/21 17:52 67 95 07/20/21 17:47 75 96 07/20/21 17:42 79 95 07/20/21 17:41 73 94 07/20/21 17:37 73 93 07/20/21 17:32 78 94 07/20/21 17:27 73 94 07/20/21 17:22 72 93 07/20/21 17:21 75 91 07/20/21 17:17 75 94 07/20/21 17:15 74 94 07/20/21 17:12 75 95 07/20/21 17:10 83 94 07/20/21 17:07 74 94 07/20/21 17:04 73 94 07/20/21 17:02 72 95 07/20/21 16:57 71 96 07/20/21 16:55 76 92 07/20/21 16:52 76 94 07/20/21 16:48 70 91 07/20/21 16:47 72 91 07/20/21 16:43 76 92 07/20/21 16:42 75 97 07/20/21 16:37 72 94 07/20/21 16:36 77 94 07/20/21 16:32 75 92 07/20/21 16:27 74 93 07/20/21 16:23 77 94 07/20/21 16:22 74 97 07/20/21 16:17 78 92 07/20/21 16:13 76 94 07/20/21 16:12 77 94 07/20/21 16:07 74 92 07/20/21 16:03 77 93 07/20/21 16:02 77 91 07/20/21 15:58 78 94 07/20/21 15:57 79 96 07/20/21 15:52 75 100 07/20/21 15:47 75 100 07/20/21 15:44 20 07/20/21 15:42 74 99 07/20/21 15:40 99.0 F 74 20 145/75 99 07/20/21 15:39 71 145/75 07/20/21 15:37 75 99 07/20/21 15:32 83 93 07/20/21 15:27 85 94 07/20/21 15:22 80 94 07/20/21 15:17 80 98 07/20/21 15:12 79 97 07/20/21 15:07 72 97 07/20/21 15:02 75 96 07/20/21 14:57 75 97 07/20/21 14:52 79 98 07/20/21 14:47 76 97 07/20/21 14:42 75 97 07/20/21 14:37 71 97 07/20/21 14:32 76 96 07/20/21 14:27 74 96 07/20/21 14:22 75 96 07/20/21 14:17 77 94 07/20/21 14:16 76 94 07/20/21 14:12 83 96 07/20/21 14:07 83 98 07/20/21 14:02 73 96 07/20/21 13:58 75 130/62 07/20/21 13:57 79 96 07/20/21 13:52 75 97 07/20/21 13:47 83 97 07/20/21 13:42 77 99 07/20/21 13:37 84 96 07/20/21 13:32 80 98 07/20/21 13:27 83 98 07/20/21 13:22 82 98 07/20/21 13:17 85 97 07/20/21 13:12 82 97 07/20/21 13:07 82 97 07/20/21 13:02 78 97 07/20/21 12:57 83 98 07/20/21 12:52 83 98 07/20/21 12:47 88 97 07/20/21 12:46 82 134/75 07/20/21 12:42 88 99 07/20/21 12:37 81 99 07/20/21 12:32 93 H 95 07/20/21 12:29 89 94 07/20/21 12:27 95 H 95 07/20/21 12:24 94 H 94 07/20/21 12:22 88 96 07/20/21 12:17 80 98 07/20/21 12:14 84 94 07/20/21 12:12 86 98 07/20/21 12:07 80 98 07/20/21 12:02 80 97 07/20/21 11:57 73 100 07/20/21 11:52 79 98 07/20/21 11:47 74 99 07/20/21 11:42 72 99 07/20/21 11:37 72 99 07/20/21 11:32 75 100 07/20/21 11:27 78 100 07/20/21 11:22 74 99 07/20/21 11:17 80 97 07/20/21 11:14 80 94 07/20/21 11:12 78 95 07/20/21 11:07 79 99 07/20/21 11:02 67 100 07/20/21 10:57 64 100 07/20/21 10:52 68 99 11/20/20 10:47 74 98 11/20/20 10:42 67 100 11/20/20 10:37 67 100 11/20/20 10:32 64 99 11/20/20 10:30 98.7 F 76 20 126/69 97 11/20/20 10:27 69 94 11/20/20 10:26 71 94 11/20/20 10:24 73 126/69 11/20/20 10:22 74 95 11/20/20 10:21 74 95 11/20/20 09:55 71 124/73 99 - Physical Examination General: Appears Well HEENT: Positive: PERRL, Mucus Membranes Moist Neck: Positive: neck supple, trachea midline Cardiac: Positive: Reg Rate and Rhythm Lungs: Positive: clear to auscultation Neuro: Positive: Grossly Intact Abdomen: Positive: Soft, Active Bowel Sounds. Negative: Tender, Distended Skin: Positive: Clear Incision: Cardiac Cath Site Musculoskeletal: No Pain, Normal Range of Motion Extremities: Present: normal, edema, +1 Edema - Labs and Meds Cardiac Enzymes 11/21/20 Range/Units 04:11 AST 31 (5-40) units/L CBC 11/21/20 Range/Units 04:11 WBC 13.8 H (4.5-11.0) K/mm3 RBC 3.11 L (3.65-5.03) M/mm3 Hgb 9.4 L (10.1-14.3) gm/dl Hct 27.6 L (30.3-42.9) % Plt Count 129 L (140-440) K/mm3 Lymph # (Auto) 1.5 (1.2-5.4) K/mm3 Assumption # (Auto) 0.8 (0.0-0.8) K/mm3 Eos # (Auto) 0.2 (0.0-0.4) K/mm3 Baso # (Auto) 0.1 (0.0-0.1) K/mm3 Comprehensive Metabolic Panel 11/21/20 Range/Units 04:11 Sodium 136 L (137-145) mmol/L Potassium 4.0 (3.6-5.0) mmol/L Chloride 101.8 (98-107) mmol/L Carbon Dioxide 26 (22-30) mmol/L BUN 11 (7-17) mg/dL Creatinine 0.4 L (0.6-1.2) mg/dL Glucose 97 (65-100) mg/dL Calcium 7.9 L (8.4-10.2) mg/dL AST 31 (5-40) units/L ALT 34 (7-56) units/L Alkaline Phosphatase 89 (35-129) units/L Total Protein 5.0 L (6.3-8.2) g/dL Albumin 2.4 L (3.9-5) g/dL - Imaging and Cardiology Echo: report reviewed (normal lv function ef 55%) - Telemetry EKG Rhythm: Sinus Rhythm
[2020-11-21] MEDS: AZITHROMYCIN 250 MG TAB PO SCH (10:02)
[2020-11-21] MEDS: FERROUS SULFATE 325 MG TAB PO SCH (10:02)
--- NOTE | 2020-11-21 10:37 | Progress Note ---
Assessment and Plan - Patient Problems (1) PIH ( induced hypertension) Current Visit: Yes Status: Acute Qualifiers: Trimester: second trimester Qualified Code(s): O13.2 - Gestational [-induced] hypertension without significant proteinuria, second trimester Plan to address problem: Now POD2 s/p C/s for preeclampsia with severe features at 27 weeks. Complicated with low to sats with imaging showing pleural and pericardial effusion now status post cardiology consult. Saturating greater than 90% on room air without significant shortness of breath. --Per cardiology, start Lasix 20 mg p.o. daily with outpatient follow-up in 1 to 2 weeks. Patient and family number given number to contact cardiology clinic. --Status post magnesium post operatively --Continue labetalol 400 mg 3 times daily and nifedipine 30 mg nightly --Baby doing well in NICU --Anticipate discharge in 24 to 48 hours Subjective - Subjective Date of service: 11/21/20 Principal diagnosis: /postop day 2 S/P primary classical cearean section; preeclampsia Interval history: Patient doing well in state. s/p c/s, now POD2. Patient reports passing flatus. Tolerating po. Urinating spontaneously. Ambulating. Breathing improving. Patient reports: appetite normal, voiding normally, pain well controlled : doing well, in NICU Objective - Vital Signs Latest vital signs: Vital Signs Temp Pulse Resp BP BP BP Pulse Ox 11/21/20 10:07 78 94 11/21/20 10:06 79 92 11/21/20 10:02 73 95 11/21/20 10:00 80 94 11/21/20 09:57 70 95 11/21/20 09:55 72 93 11/21/20 09:52 72 94 11/21/20 09:50 71 94 11/21/20 09:47 72 95 11/21/20 09:42 70 97 11/21/20 09:37 74 96 11/21/20 09:32 69 99 11/21/20 09:27 71 97 11/21/20 09:22 73 99 11/21/20 09:17 78 97 11/21/20 09:15 77 94 11/21/20 09:12 78 97 11/21/20 09:01 78 97 11/21/20 08:58 87 94 11/21/20 08:56 78 95 07/21/21 08:53 81 94 07/21/21 08:51 77 96 07/21/21 08:46 84 96 07/21/21 08:41 83 94 07/21/21 08:36 78 96 07/21/21 08:31 73 96 07/21/21 08:26 73 98 07/21/21 08:21 78 96 07/21/21 08:16 71 96 07/21/21 08:11 74 96 07/21/21 08:06 75 97 07/21/21 08:01 69 96 07/21/21 07:56 74 97 07/21/21 07:51 74 97 07/21/21 07:43 74 96 07/21/21 07:38 69 94 07/21/21 07:33 72 96 07/21/21 07:28 71 96 07/21/21 07:25 74 94 07/21/21 07:23 75 97 07/21/21 07:18 71 96 07/21/21 07:17 72 94 07/21/21 07:13 77 95 07/21/21 07:06 75 94 07/21/21 07:03 73 95 07/21/21 07:01 81 94 07/21/21 06:58 79 97 07/21/21 06:53 72 97 07/21/21 06:48 75 95 07/21/21 06:46 77 94 07/21/21 06:43 72 95 07/21/21 06:38 80 94 07/21/21 06:25 78 96 07/21/21 06:20 85 93 07/21/21 06:19 80 125/74 07/21/21 06:18 80 94 07/21/21 06:15 74 18 125/74 96 07/21/21 06:14 76 125/74 07/21/21 06:12 79 94 07/21/21 06:10 83 98 07/21/21 06:05 69 97 07/21/21 06:00 67 98 07/21/21 05:55 70 97 07/21/21 05:52 67 93 07/21/21 05:50 68 97 07/21/21 05:45 77 96 07/21/21 05:40 70 97 07/21/21 05:35 64 96 07/21/21 05:30 64 97 07/21/21 05:25 64 96 07/21/21 05:20 64 96 07/21/21 05:15 66 96 07/21/21 05:10 65 97 07/21/21 05:05 67 96 07/21/21 05:00 64 96 07/21/21 04:55 64 97 07/21/21 04:50 71 96 07/21/21 04:45 68 91 07/21/21 04:44 68 93 07//21 04:40 65 97 07//21 04:39 66 92 07/21/21 04:35 66 92 07/21/21 04:34 68 92 07/21/21 04:30 66 95 07//21 04:27 71 93 07//21 04:25 70 94 11/21/21 04:20 72 93 07/21 04:19 73 94 07/21 04:15 73 93 07//21 04:14 76 94 07/ 04:10 63 99 07//21 04:05 63 99 07//21 04:00 62 98 07/21/21 03:55 63 98 07/21/21 03:50 63 98 07/21/21 03:45 64 98 07/21/21 03:40 62 99 07/21/21 03:35 64 99 07/21/21 03:30 65 98 07/21/21 03:25 64 99 07/21/21 03:20 67 98 07/21/21 03:15 67 98 07/21/21 03:10 69 98 07/21/21 03:05 70 99 07/21/21 03:00 70 98 07/21/21 02:55 77 99 07/21/21 02:50 65 99 07/21/21 02:45 66 99 07/21/21 02:40 67 99 07/21/21 02:35 67 99 07/21/21 02:30 67 99 07/21/21 02:25 68 98 07/21/21 02:20 68 98 07/21/21 02:15 63 99 07/21/21 02:10 66 99 07/21/21 02:05 64 99 07/21/21 02:00 66 99 07/21/21 01:55 69 98 07/21/21 01:50 65 97 07/21/21 01:45 78 18 141/85 141/85 99 07/21/21 01:44 78 141/85 0721/21 01:40 66 100 07/21/21 01:35 71 99 07/21/21 01:30 64 99 07/21/21 01:25 65 99 07/21/21 01:20 66 99 07/21/21 01:15 68 99 07/21/21 01:10 72 99 11/21/21 01:05 74 99 11/21/21 01:00 77 99 07/21 00:55 72 100 07/21/21 00:50 74 100 07/21/21 00:46 76 94 07/21/21 00:45 74 95 //21 00:40 79 96 11/21/21 00:38 75 94 11/21/21 00:35 77 95 11/21/21 00:30 80 98 //21 00:25 75 95 11/21/21 00:20 76 97 11/21/21 00:15 79 96 21 00:10 78 96 11/21/20 00:05 74 99 07/21 00:00 75 95 07/20/21 23:55 75 95 07/20/21 23:50 71 96 07/20/21 23:45 98.2 F 75 145/80 145/80 99 07/20/21 23:40 73 98 07/20/21 23:37 18 /20/21 23:35 75 97 07/20/21 23:19 74 96 07/20/21 23:14 77 95 07/20/21 23:09 69 96 07/20/21 23:04 71 96 07/20/21 22:59 72 95 07/20/21 22:54 68 97 07/20/21 22:49 72 96 07/20/21 22:44 70 98 07/20/21 22:39 69 97 07/20/21 22:34 71 95 07/20/21 22:29 70 96 07/20/21 22:24 70 98 07/20/21 22:19 71 96 07/20/21 22:14 70 97 07/20/21 22:12 74 94 07/20/21 22:09 73 97 07/20/21 22:04 74 97 07/20/21 21:59 68 98 07/20/21 21:54 74 94 07/20/21 21:51 76 94 07/20/21 21:49 69 98 07/20/21 21:44 72 94 07/20/21 21:42 76 94 07/20/21 21:39 71 98 07/20/21 21:36 70 94 07/20/21 21:34 77 95 07/20/21 21:29 74 95 07/20/21 21:24 70 95 07/20/21 21:19 71 98 07/20/21 21:14 71 96 07/20/21 21:09 71 97 07/20/21 21:06 98.9 F 68 150/83 98 07/20/21 21:05 68 150/83 07/20/21 21:04 79 97 07/20/21 20:22 80 98 07/20/21 20:17 76 97 07/20/21 20:12 73 96 07/20/21 20:07 72 96 07/20/21 20:02 69 97 07/20/21 19:57 74 96 07/20/21 19:52 76 97 07/20/21 19:47 73 97 07/20/21 19:42 70 96 07/20/21 19:37 77 93 07/20/21 19:32 71 97 07/20/21 19:27 79 98 07/20/21 19:22 80 97 07/20/21 19:17 77 97 07/20/21 19:12 82 96 07/20/21 19:07 76 95 07/20/21 19:06 77 94 07/20/21 19:02 73 96 07/20/21 18:57 73 96 07/20/21 18:52 72 96 07/20/21 18:47 70 95 07/20/21 18:42 72 96 07/20/21 18:38 72 94 07/20/21 18:37 72 95 07/20/21 18:32 74 96 07/20/21 18:27 77 95 07/20/21 18:22 74 97 07/20/21 18:18 71 93 07/20/21 18:17 69 94 07/20/21 18:12 70 94 07/20/21 18:07 70 94 07/20/21 18:05 70 93 07/20/21 18:02 70 94 07/20/21 18:00 72 93 07/20/21 17:57 72 93 07/20/21 17:52 67 95 07/20/21 17:47 75 96 07/20/21 17:42 79 95 07/20/21 17:41 73 94 07/20/21 17:37 73 93 07/20/21 17:32 78 94 07/20/21 17:27 73 94 07/20/21 17:22 72 93 07/20/21 17:21 75 91 07/20/21 17:17 75 94 07/20/21 17:15 74 94 07/20/21 17:12 75 95 07/20/21 17:10 83 94 07/20/21 17:07 74 94 07/20/21 17:04 73 94 07/20/21 17:02 72 95 07/20/21 16:57 71 96 07/20/21 16:55 76 92 07/20/21 16:52 76 94 07/20/21 16:48 70 91 07/20/21 16:47 72 91 07/20/21 16:43 76 92 07/20/21 16:42 75 97 07/20/21 16:37 72 94 07/20/21 16:36 77 94 07/20/21 16:32 75 92 07/20/21 16:27 74 93 07/20/21 16:23 77 94 07/20/21 16:22 74 97 07/20/21 16:17 78 92 07/20/21 16:13 76 94 07/20/21 16:12 77 94 07/20/21 16:07 74 92 07/20/21 16:03 77 93 07/20/21 16:02 77 91 07/20/21 15:58 78 94 07/20/21 15:57 79 96 07/20/21 15:52 75 100 07/20/21 15:47 75 100 07/20/21 15:44 20 07/20/21 15:42 74 99 07/20/21 15:40 99.0 F 74 20 145/75 99 07/20/21 15:39 71 145/75 07/20/21 15:37 75 99 07/20/21 15:32 83 93 07/20/21 15:27 85 94 07/20/21 15:22 80 94 07/20/21 15:17 80 98 07/20/21 15:12 79 97 07/20/21 15:07 72 97 07/20/21 15:02 75 96 07/20/21 14:57 75 97 07/20/21 14:52 79 98 07/20/21 14:47 76 97 07/20/21 14:42 75 97 07/20/21 14:37 71 97 07/20/21 14:32 76 96 07/20/21 14:27 74 96 07/20/21 14:22 75 96 07/20/21 14:17 77 94 07/20/21 14:16 76 94 07/20/21 14:12 83 96 07/20/21 14:07 83 98 07/20/21 14:02 73 96 07/20/21 13:58 75 130/62 07/20/21 13:57 79 96 07/20/21 13:52 75 97 07/20/21 13:47 83 97 07/20/21 13:42 77 99 07/20/21 13:37 84 96 07/20/21 13:32 80 98 07/20/21 13:27 83 98 07/20/21 13:22 82 98 07/20/21 13:17 85 97 07/20/21 13:12 82 97 07/20/21 13:07 82 97 07/20/21 13:02 78 97 07/20/21 12:57 83 98 07/20/21 12:52 83 98 07/20/21 12:47 88 97 07/20/21 12:46 82 134/75 07/20/21 12:42 88 99 07/20/21 12:37 81 99 07/20/21 12:32 93 H 95 07/20/21 12:29 89 94 07/20/21 12:27 95 H 95 07/20/21 12:24 94 H 94 07/20/21 12:22 88 96 07/20/21 12:17 80 98 07/20/21 12:14 84 94 07/20/21 12:12 86 98 07/20/21 12:07 80 98 07/20/21 12:02 80 97 07/20/21 11:57 73 100 07/20/21 11:52 79 98 07/20/21 11:47 74 99 11/20/20 11:42 72 99 11/20/20 11:37 72 99 11/20/20 11:32 75 100 11/20/20 11:27 78 100 11/20/20 11:22 74 99 11/20/20 11:17 80 97 11/20/20 11:14 80 94 11/20/20 11:12 78 95 11/20/20 11:07 79 99 11/20/20 11:02 67 100 11/20/20 10:57 64 100 11/20/20 10:52 68 99 11/20/20 10:47 74 98 11/20/20 10:42 67 100 11/20/20 10:37 67 100 Intake and Output 11/20/20 11/21/20 11/21/20 23:59 07:59 15:59 Intake Total 1000 Output Total 1600 Balance -600 Intake: IV 1000 Lactated Ringers 1,000 ml 1000 @ 75 mls/hr IV DIRECT SKYE Rx#:[id number] Output: Urine 1600 Indwelling Catheter 1600 Other: Total, Output Amount 1600 - Exam Cardiovascular: Present: Regular rate Lungs: Present: Clear to auscultation (in upper bases) Abdomen: Present: normal appearance Uterus: Present: firm, tenderness, fundal height below umbilicus Deep Tendon Reflex Grade: Normal +2 Incision: Present: normal - Labs Labs: Abnormal lab results 11/21/20 11/21/20 Range/Units 04:11 04:11 WBC 13.8 H (4.5-11.0) K/mm3 RBC 3.11 L (3.65-5.03) M/mm3 Hgb 9.4 L (10.1-14.3) gm/dl Hct 27.6 L (30.3-42.9) % Plt Count 129 L (140-440) K/mm3 Lymph % (Auto) 11.0 L (13.4-35.0) % Seg Neutrophils % 81.7 H (40.0-70.0) % Seg Neutrophils # 11.3 H (1.8-7.7) K/mm3 Sodium 136 L (137-145) mmol/L Creatinine 0.4 L (0.6-1.2) mg/dL Calcium 7.9 L (8.4-10.2) mg/dL Total Protein 5.0 L (6.3-8.2) g/dL Albumin 2.4 L (3.9-5) g/dL
--- NOTE | 2020-11-21 15:46 | Progress Note ---
Assessment and Plan -- Respiratory distress, resolved due to flash pulmonary edema from acute diastolic heart failure related to preeclampsia Patient had significant history of preeclampsia. She is status post section. CT angiogram done was negative for pulmonary embolism. Findings however were concerning for pulmonary edema versus pneumonia. Patient started on diuretics and empiric IV antibiotics. 2D echo showed preserved EF Lasix now discontinued, may also can stop antibiotics -- PIH ( induced hypertension) We will continue on current antihypertensives and monitor vital signs closely. Patient currently on p.o. labetalol, Procardia and IV hydralazine as needed. -- Preeclampsia Patient being managed by the primary team. She has received magnesium sulfate. --Anemia, h/h stable, cont to follow -- DVT prophylaxis Patient currently on sequential compression device. Subjective Date of service: 11/21/20 Principal diagnosis: /postop day 2 S/P primary classical cearean section; preeclampsia Interval history: Patient seen and examined. Medical records and medication list reviewed. No acute event overnight noted by the RN. Patient denies any chest pain or difficulty breathing. Patient is tolerating diet. Discussed plan of care at bedside with patient. Objective - Exam Narrative Exam: GENERAL: well-developed obese female lying on bed appeared to be in no discomfort. HEENT: Normocephalic. Atraumatic. No conjunctival congestion or icterus. Patient has moist mucous membranes. NECK: Supple. Trachea midline. CHEST/LUNGS: Clear to auscultated bilaterally, breathing nonlabored. No wheezes crackles or rhonchi. HEART/CARDIOVASCULAR: Regular in rate and rhythm. S1 and S2 positive. ABDOMEN: Abdomen is soft, nontender. Patient has normal bowel sounds. SKIN: There is no rash. Warm and dry. NEURO: No focal motor deficit. Follows command. MUSCULOSKELETAL: No joint effusion or tenderness. EXTRIMITY: No edema, no cyanosis or clubbing. PSYCH: Cooperative. - Constitutional Vitals: Vital Signs - 12hr 11/21/20 11/21/20 11/21/20 03:45 03:50 03:55 Temperature Pulse Rate 64 63 63 Respiratory Rate Blood Pressure Blood Pressure [Right] O2 Sat by Pulse 98 98 98 Oximetry 11/21/20 11/21/20 11/21/20 04:00 04:05 04:10 Temperature Pulse Rate 62 63 63 Respiratory Rate Blood Pressure Blood Pressure [Right] O2 Sat by Pulse 98 99 99 Oximetry 11/21/20 11/21/20 11/21/20 04:14 04:15 04:19 Temperature Pulse Rate 76 73 73 Respiratory Rate Blood Pressure Blood Pressure [Right] O2 Sat by Pulse 94 93 94 Oximetry 11/21/20 11/21/20 11/21/20 04:20 04:25 04:27 Temperature Pulse Rate 72 70 71 Respiratory Rate Blood Pressure Blood Pressure [Right] O2 Sat by Pulse 93 94 93 Oximetry 11/21/20 11/21/20 11/21/20 04:30 04:34 04:35 Temperature Pulse Rate 66 68 66 Respiratory Rate Blood Pressure Blood Pressure [Right] O2 Sat by Pulse 95 92 92 Oximetry 11/21/20 11/21/20 11/21/20 04:39 04:40 04:44 Temperature Pulse Rate 66 65 68 Respiratory Rate Blood Pressure Blood Pressure [Right] O2 Sat by Pulse 92 97 93 Oximetry 11/21/20 11/21/20 11/21/20 04:45 04:50 04:55 Temperature Pulse Rate 68 71 64 Respiratory Rate Blood Pressure Blood Pressure [Right] O2 Sat by Pulse 91 96 97 Oximetry 11/21/20 11/21/20 11/21/20 05:00 05:05 05:10 Temperature Pulse Rate 64 67 65 Respiratory Rate Blood Pressure Blood Pressure [Right] O2 Sat by Pulse 96 96 97 Oximetry 11/21/20 11/21/20 11/21/20 05:15 05:20 05:25 Temperature Pulse Rate 66 64 64 Respiratory Rate Blood Pressure Blood Pressure [Right] O2 Sat by Pulse 96 96 96 Oximetry 11/21/20 11/21/20 11/21/20 05:30 05:35 05:40 Temperature Pulse Rate 64 64 70 Respiratory Rate Blood Pressure Blood Pressure [Right] O2 Sat by Pulse 97 96 97 Oximetry 11/21/20 11/21/20 11/21/20 05:45 05:50 05:52 Temperature Pulse Rate 77 68 67 Respiratory Rate Blood Pressure Blood Pressure [Right] O2 Sat by Pulse 96 97 93 Oximetry 11/21/20 11/21/20 11/21/20 05:55 06:00 06:05 Temperature Pulse Rate 70 67 69 Respiratory Rate Blood Pressure Blood Pressure [Right] O2 Sat by Pulse 97 98 97 Oximetry 11/21/20 11/21/20 11/21/20 06:10 06:12 06:14 Temperature Pulse Rate 83 79 76 Respiratory Rate Blood Pressure 125/74 Blood Pressure [Right] O2 Sat by Pulse 98 94 Oximetry 11/21/20 11/21/20 11/21/20 06:15 06:18 06:19 Temperature Pulse Rate 74 80 80 Respiratory 18 Rate Blood Pressure 125/74 Blood Pressure 125/74 [Right] O2 Sat by Pulse 96 94 Oximetry 11/21/20 11/21/20 11/21/20 06:20 06:25 06:38 Temperature Pulse Rate 85 78 80 Respiratory Rate Blood Pressure Blood Pressure [Right] O2 Sat by Pulse 93 96 94 Oximetry 11/21/20 11/21/20 11/21/20 06:43 06:46 06:48 Temperature Pulse Rate 72 77 75 Respiratory Rate Blood Pressure Blood Pressure [Right] O2 Sat by Pulse 95 94 95 Oximetry 11/21/20 11/21/20 11/21/20 06:53 06:58 07:01 Temperature Pulse Rate 72 79 81 Respiratory Rate Blood Pressure Blood Pressure [Right] O2 Sat by Pulse 97 97 94 Oximetry 11/21/20 11/21/20 11/21/20 07:03 07:06 07:13 Temperature Pulse Rate 73 75 77 Respiratory Rate Blood Pressure Blood Pressure [Right] O2 Sat by Pulse 95 94 95 Oximetry 11/21/20 11/21/20 11/21/20 07:17 07:18 07:23 Temperature Pulse Rate 72 71 75 Respiratory Rate Blood Pressure Blood Pressure [Right] O2 Sat by Pulse 94 96 97 Oximetry 11/21/20 11/21/20 11/21/20 07:25 07:28 07:33 Temperature Pulse Rate 74 71 72 Respiratory Rate Blood Pressure Blood Pressure [Right] O2 Sat by Pulse 94 96 96 Oximetry 11/21/20 11/21/20 11/21/20 07:38 07:43 07:51 Temperature Pulse Rate 69 74 74 Respiratory Rate Blood Pressure Blood Pressure [Right] O2 Sat by Pulse 94 96 97 Oximetry 11/21/20 11/21/20 11/21/20 07:56 08:01 08:06 Temperature Pulse Rate 74 69 75 Respiratory Rate Blood Pressure Blood Pressure [Right] O2 Sat by Pulse 97 96 97 Oximetry 11/21/20 11/21/20 11/21/20 08:11 08:16 08:21 Temperature Pulse Rate 74 71 78 Respiratory Rate Blood Pressure Blood Pressure [Right] O2 Sat by Pulse 96 96 96 Oximetry 11/21/20 11/21/20 11/21/20 08:26 08:31 08:36 Temperature Pulse Rate 73 73 78 Respiratory Rate Blood Pressure Blood Pressure [Right] O2 Sat by Pulse 98 96 96 Oximetry 11/21/20 11/21/20 11/21/20 08:41 08:46 08:51 Temperature Pulse Rate 83 84 77 Respiratory Rate Blood Pressure Blood Pressure [Right] O2 Sat by Pulse 94 96 96 Oximetry 11/21/20 11/21/20 11/21/20 08:53 08:56 08:58 Temperature Pulse Rate 81 78 87 Respiratory Rate Blood Pressure Blood Pressure [Right] O2 Sat by Pulse 94 95 94 Oximetry 11/21/20 11/21/20 11/21/20 09:01 09:12 09:15 Temperature Pulse Rate 78 78 77 Respiratory Rate Blood Pressure Blood Pressure [Right] O2 Sat by Pulse 97 97 94 Oximetry 11/21/20 11/21/20 11/21/20 09:17 09:22 09:27 Temperature Pulse Rate 78 73 71 Respiratory Rate Blood Pressure Blood Pressure [Right] O2 Sat by Pulse 97 99 97 Oximetry 11/21/20 11/21/20 11/21/20 09:32 09:37 09:42 Temperature Pulse Rate 69 74 70 Respiratory Rate Blood Pressure Blood Pressure [Right] O2 Sat by Pulse 99 96 97 Oximetry 11/21/20 11/21/20 11/21/20 09:47 09:50 09:52 Temperature Pulse Rate 72 71 72 Respiratory Rate Blood Pressure Blood Pressure [Right] O2 Sat by Pulse 95 94 94 Oximetry 11/21/20 11/21/20 11/21/20 09:55 09:57 10:00 Temperature Pulse Rate 72 70 80 Respiratory Rate Blood Pressure Blood Pressure [Right] O2 Sat by Pulse 93 95 94 Oximetry 11/21/20 11/21/20 11/21/20 10:02 10:06 10:07 Temperature Pulse Rate 73 79 78 Respiratory Rate Blood Pressure Blood Pressure [Right] O2 Sat by Pulse 95 92 94 Oximetry 11/21/20 11/21/20 11/21/20 10:35 10:38 10:40 Temperature Pulse Rate 69 76 72 Respiratory Rate Blood Pressure Blood Pressure [Right] O2 Sat by Pulse 96 94 96 Oximetry 11/21/20 11/21/20 11/21/20 10:46 10:51 10:52 Temperature Pulse Rate 69 78 75 Respiratory Rate Blood Pressure Blood Pressure [Right] O2 Sat by Pulse 97 95 94 Oximetry 11/21/20 11/21/20 11/21/20 10:56 11:00 11:06 Temperature Pulse Rate 77 83 81 Respiratory Rate Blood Pressure Blood Pressure [Right] O2 Sat by Pulse 94 98 97 Oximetry 11/21/20 11/21/20 11/21/20 11:11 11:12 11:30 Temperature 98.6 F Pulse Rate 74 73 75 Respiratory 20 Rate Blood Pressure Blood Pressure 147/86 [Right] O2 Sat by Pulse 96 91 95 Oximetry 11/21/20 11:49 Temperature Pulse Rate 75 Respiratory Rate Blood Pressure 147/86 Blood Pressure [Right] O2 Sat by Pulse Oximetry - Labs CBC & Chem 7: 11/21/20 04:11 11/21/20 04:11 Labs: Abnormal lab results 11/19/20 11/21/20 11/21/20 Range/Units 08:23 04:11 04:11 WBC 13.8 H (4.5-11.0) K/mm3 RBC 3.11 L (3.65-5.03) M/mm3 Hgb 9.4 L (10.1-14.3) gm/dl Hct 27.6 L (30.3-42.9) % Plt Count 129 L (140-440) K/mm3 Lymph % (Auto) 11.0 L (13.4-35.0) % Seg Neutrophils % 81.7 H (40.0-70.0) % Seg Neutrophils # 11.3 H (1.8-7.7) K/mm3 Sodium 136 L (137-145) mmol/L Creatinine 0.4 L (0.6-1.2) mg/dL Calcium 7.9 L (8.4-10.2) mg/dL Total Protein 5.0 L (6.3-8.2) g/dL Albumin 2.4 L (3.9-5) g/dL Crossmatch See Detail
[2020-11-21] MEDS: HYDROcodone/ACETAMINOPHEN 5-325 MG TAB PO PRN (17:43)
[2020-11-21] MEDS ORDERED: FUROSEMIDE 20 MG TAB PO SCH (18:00)
[2020-11-21] MEDS: NIFEdipine XL 30 MG TAB PO SCH (21:58)
[2020-11-21] MEDS: cefTRIAXone/NS 2 GM/100 ML 2 GM/100 ML BAG IV SCH (21:59)
[2020-11-22] MEDS: HYDROcodone/ACETAMINOPHEN 5-325 MG TAB PO PRN ×2 (04:15→21:32)
--- NOTE | 2020-11-22 10:37 | Progress Note ---
Assessment and Plan 40-year-old female post delivery who went into acute diastolic heart failure with hypertensive urgency resolved with Lasix and BP control. Normal LV function echocardiogram. Patient is not requiring oxygen. Continue labetalol and nifedipine for BP control continue Lasix 20 mg patient for two weeks only will follow up in the office in 2 weeks discussed this in detail with the patient patient's office number [phone] - Patient Problems (1) Acute respiratory failure with hypoxia Current Visit: Yes Status: Acute (2) Acute heart failure Current Visit: Yes Status: Acute Qualifiers: Heart failure type: diastolic Qualified Code(s): I50.31 - Acute diastolic (congestive) heart failure (3) PIH ( induced hypertension) Current Visit: Yes Status: Acute Qualifiers: Trimester: second trimester Qualified Code(s): O13.2 - Gestational [-induced] hypertension without significant proteinuria, second trimester (4) Preeclampsia Current Visit: Yes Status: Acute Qualifiers: Trimester: second trimester Qualified Code(s): O14.92 - Unspecified pre- eclampsia, second trimester Subjective Date of service: 11/22/20 Principal diagnosis: /postop day 2 S/P primary classical cearean section; preeclampsia Interval history: sob is better and swelling is better Objective Vital Signs Temp Pulse Resp BP BP Pulse Ox 11/22/20 08:00 98.0 F 69 16 134/82 94 11/22/20 05:15 18 11/22/20 04:15 18 11/22/20 04:11 75 140/85 11/22/20 04:10 98.7 F 73 18 140/85 95 11/21/20 23:15 98.4 F 68 16 132/80 93 11/21/20 20:14 80 154/80 11/21/20 20:13 98.3 F 80 18 154/80 95 11/21/20 15:50 98.2 F 73 20 153/82 11/21/20 11:49 75 147/86 11/21/20 11:30 98.6 F 75 20 147/86 95 11/21/20 11:12 73 91 11/21/20 11:11 74 96 11/21/20 11:06 81 97 11/21/20 11:00 83 98 11/21/20 10:56 77 94 11/21/20 10:52 75 94 11/21/20 10:51 78 95 11/21/20 10:46 69 97 11/21/20 10:40 72 96 11/21/20 10:38 76 94 - Physical Examination General: Appears Well HEENT: Positive: PERRL, Mucus Membranes Moist Neck: Positive: neck supple, trachea midline Cardiac: Positive: Reg Rate and Rhythm Lungs: Positive: clear to auscultation Neuro: Positive: Grossly Intact Abdomen: Positive: Soft, Active Bowel Sounds. Negative: Tender, Distended Skin: Positive: Clear Incision: Cardiac Cath Site Musculoskeletal: No Pain, Normal Range of Motion Extremities: Present: normal, edema, +1 Edema - Imaging and Cardiology Echo: report reviewed (normal lv function ef 55%)
[2020-11-22] MEDS: FUROSEMIDE 20 MG TAB PO SCH (11:14)
[2020-11-22] MEDS: FERROUS SULFATE 325 MG TAB PO SCH (11:14)
[2020-11-22] MEDS: AZITHROMYCIN 250 MG TAB PO SCH ×2 (11:46→11:47)
--- NOTE | 2020-11-22 16:07 | Progress Note ---
Assessment and Plan -- Respiratory distress, resolved due to flash pulmonary edema from acute diastolic heart failure related to preeclampsia Patient had significant history of preeclampsia. She is status post section. CT angiogram done was negative for pulmonary embolism. Findings however were concerning for pulmonary edema versus pneumonia. Patient started on diuretics and empiric IV antibiotics. 2D echo showed preserved EF Lasix now discontinued, may also can stop antibiotics -- PIH ( induced hypertension) We will continue on current antihypertensives and monitor vital signs closely. Patient currently on p.o. labetalol, Procardia and IV hydralazine as needed. -- Preeclampsia Patient being managed by the primary team. She has received magnesium sulfate. --Anemia, h/h stable, cont to follow -- DVT prophylaxis Patient currently on sequential compression device. --Patient appears medically to be stable. Discharge planning per CERTIFIED PEDORTHOTIST Subjective Date of service: 11/22/20 Principal diagnosis: S/P primary classical cearean section; preeclampsia Interval history: Patient seen and examined. Medical records and medication list reviewed. No acute event overnight noted by the RN. Patient denies any chest pain or difficulty breathing. Patient is tolerating diet. sitting in a chair Discussed plan of care at bedside with patient. Objective - Exam Narrative Exam: GENERAL: well-developed obese female appeared to be in no discomfort. HEENT: Normocephalic. Atraumatic. No conjunctival congestion or icterus. Patient has moist mucous membranes. NECK: Supple. Trachea midline. CHEST/LUNGS: Clear to auscultated bilaterally, breathing nonlabored. No wheezes crackles or rhonchi. HEART/CARDIOVASCULAR: Regular in rate and rhythm. S1 and S2 positive. ABDOMEN: Abdomen is soft, nontender. Patient has normal bowel sounds. SKIN: There is no rash. Warm and dry. NEURO: No focal motor deficit. Follows command. MUSCULOSKELETAL: No joint effusion or tenderness. EXTRIMITY: No edema, no cyanosis or clubbing. PSYCH: Cooperative. - Constitutional Vitals: Vital Signs - 12hr 11/22/20 11/22/20 11/22/20 04:10 04:11 04:15 Temperature 98.7 F Pulse Rate 73 75 Respiratory 18 18 Rate Blood Pressure 140/85 140/85 O2 Sat by Pulse 95 Oximetry 11/22/20 11/22/20 11/22/20 05:15 08:00 12:11 Temperature 98.0 F 98.1 F Pulse Rate 69 70 Respiratory 18 16 16 Rate Blood Pressure 134/82 132/76 O2 Sat by Pulse 94 94 Oximetry - Labs CBC & Chem 7: 11/21/20 04:11 11/21/20 04:11 Labs: Abnormal lab results 11/19/20 Range/Units 08:23 Crossmatch See Detail
--- NOTE | 2020-11-22 18:55 | Progress Note ---
Assessment and Plan - Patient Problems (1) PIH ( induced hypertension) Current Visit: Yes Status: Acute Qualifiers: Trimester: second trimester Qualified Code(s): O13.2 - Gestational [-induced] hypertension without significant proteinuria, second trimester Plan to address problem: KEEP PT ON LABETALOL AND HOSP UNTIL SHE DELIVERS. doing well post op. possible d/c in am. (2) DVT prophylaxis Current Visit: Yes Status: Acute (3) Preeclampsia Current Visit: Yes Status: Acute Qualifiers: Trimester: second trimester Qualified Code(s): O14.92 - Unspecified pre- eclampsia, second trimester Subjective - Subjective Principal diagnosis: /postop day 2 S/P primary classical cearean section; preeclampsia Interval history: The patient is a 40-year-old woman 4 para 3-0-0-3 patient. Last menstrual period 04/23/2020 EDC 01/28/2021 ultrasound EDC is 02/13/2021 she has been cared for at this [facility] [place]. Patient had approximately 15 visits. She has had 3 other vaginal deliveries she was sent to the hospital because of elevated blood pressure and 2+ protein in her urine at the clinic her blood type was a positive antibody screen was negative hematocrit was 37.7% Pap smear was normal rubella was immune VDRL was negative urine culture was negative hepatitis B was also negative. Her chlamydia and gonorrhea tests were negative. She had a test for cystic fibrosis that was negative. Her Fragile X test was intermediate her MSAFP test was also negative. Her family medical history is positive for diabetes in her mother. She has a history of anemia during . The only time she was hospitalized was for deliveries in the past. Her maternal AFP was negative her fasting glucose was 95 1 hour glucose was 162-hour glucose was 106. Chlamydia and gonorrhea tests were negative HPV in the cervix was not detected Pap smear was normal antibody screen showed no antibodies blood type a positive RPR nonreactive hepatitis B was nonreactive rubella was immune. The patient was sent to the hospital today because of elevated blood pressure and 2+ protein in the urine for evaluation for -induced hypertension. Patient reports: appetite normal : doing well Objective - Vital Signs Latest vital signs: Vital Signs Temp Pulse Resp BP Pulse Ox 11/22/20 15:38 98.2 F 78 16 133/81 96 11/22/20 12:11 98.1 F 70 16 132/76 94 11/22/20 08:00 98.0 F 69 16 134/82 94 11/22/20 05:15 18 11/22/20 04:15 18 11/22/20 04:11 75 140/85 11/22/20 04:10 98.7 F 73 18 140/85 95 11/21/20 23:15 98.4 F 68 16 132/80 93 11/21/20 20:14 80 154/80 11/21/20 20:13 98.3 F 80 18 154/80 95 Intake and Output 11/22/20 11/22/20 11/22/20 07:59 15:59 23:59 Intake Total 240 480 Balance 240 480 Intake: Oral 480 Intake, Free Water 240 Other: Total, Intake Amount 240 # Voids Void 2 1 - Exam Cardiovascular: Present: Regular rate, Normal S1, Normal S2 Lungs: Present: Clear to auscultation, Normal air movement Abdomen: Present: normal appearance, soft, normal bowel sounds - Labs Labs: Abnormal lab results 11/19/20 Range/Units 08:23 Crossmatch See Detail
[2020-11-22] MEDS: NIFEdipine XL 30 MG TAB PO SCH (21:31)
[2020-11-23 09:09] VITALS: BP 127/76
[2020-11-23] MEDS: AZITHROMYCIN 250 MG TAB PO SCH (10:20)
[2020-11-23] MEDS: FUROSEMIDE 20 MG TAB PO SCH (10:21)
[2020-11-23] MEDS: FERROUS SULFATE 325 MG TAB PO SCH ×2 (10:21→12:31)
--- NOTE | 2020-11-23 10:41 | Discharge Summary ---
Providers - Providers Date of Admission: 11/13/20 14:29 Date of discharge: 11/23/20 Attending physician: JOSE L DINH MD 11/14/20 21:03 Consult to Physician [CONS] Routine Comment: Consulting Provider: LOVE CAMPUZANO Physician Instructions: Reason For Exam: preeclampsia at 27 weeks 11/19/20 22:40 Consult to Physician [CONS] Stat Comment: Consulting Provider: SUGEY BECKER Physician Instructions: Reason For Exam: CT with pulm edema; post op day #0, preeclampsia 11/20/20 00:52 Consult to Cardiology [CONS] Routine Consulting Provider: MICHELLE GREGG Reason For Exam: R/O Post cardiomyoparty Primary care physician: JOSE L DINH MD Hospitalization Reason for admission: labor Condition: Stable Procedures: primary Hospital course: pt with pulmonary and cardiac problems post op. consulted with cardiology. Disposition: 01 HOME / SELF CARE / HOMELESS Final Discharge Diagnosis (Prints w/discharge instructions): pre-eclampsia. pulmonary edema Time spent for discharge: 10 mins - Discharge Diagnoses (1) PIH ( induced hypertension) Status: Acute Qualifiers: Trimester: second trimester Qualified Code(s): O13.2 - Gestational [-induced] hypertension without significant proteinuria, second trimester (2) DVT prophylaxis Status: Acute (3) Preeclampsia Status: Acute Qualifiers: Trimester: second trimester Qualified Code(s): O14.92 - Unspecified pre- eclampsia, second trimester Core Measure Documentation - Palliative Care Palliative Care/ Comfort Measures: Not Applicable - Core Measures Any of the following diagnoses?: none - VTE Discharge Requirements Deep Vein Thrombosis/Pulmonary Embolism Present on Admission: No Has pt received <5 days of overlap therapy or INR<2.0: No Anticoagulant overlap therapy prescribed at discharge: No Contraindication No Overlap Therapy order at DC: Not Indicated - Acute HI Discharge Requirements PATRICIA/ARB for LVSD if EF <40%: Not Applicable Beta oswaldo at discharge: No Reason for no beta oswaldo on DC: Patient refusal Statin for LDL = or >100 mg/dl on DC: Not Applicable - Heart Failure Discharge Requirements PATRICIA/ARB for LVSD if EF <40%: Not Applicable Beta oswaldo at discharge: No Reason for no beta oswaldo on DC: Patient refusal - Stroke Discharge Requirements Statin for LDL = or >70 mg/dl on DC: Not Applicable Reason for no statin on DC: Not Indicated Anticoag for atrial fib/atrial flutter: No Reason for no anticoag for AF/F on DC: Not Indicated Reason for no antithrombotic on DC: Not Indicated Exam - Physical Exam Narrative exam: see hx of present illness. - Constitutional Vitals: Temp Pulse Resp BP Pulse Ox 98.2 F 74 18 127/76 93 11/23/20 08:40 11/23/20 08:40 11/23/20 08:40 11/23/20 08:40 11/23/20 08:40 General appearance: Present: no acute distress, well-nourished - Respiratory Respiratory effort: normal - Cardiovascular Rhythm: regular Heart Sounds: Present: S1 & S2. Absent: rub, click - Extremities Extremities: pulses symmetrical, No edema Peripheral Pulses: within normal limits - Abdominal General gastrointestinal: Present: soft, non-tender, non-distended, normal bowel sounds Female genitourinary: Present: normal - Rectal Rectal Exam: deferred - Integumentary Integumentary: Present: clear, warm, dry - Musculoskeletal Musculoskeletal: strength equal bilaterally - Psychiatric Psychiatric: appropriate mood/affect, intact judgment & insight - Neurologic Neurologic: CNII-XII intact, moves all extremities Plan Activity: no restrictions, fall precautions Weight Bearing Status: Full Weight Bearing Diet: regular Wound: open to air, keep clean and dry, per wound nurse instructions Special Instructions: no heavy lifting Care Plan Goals: f/u care in 1 weeks. Plan of Treatment: none Follow up with: JOSE L DINH MD [Primary Care Provider] - 7 Days Prescriptions: Ferrous Sulfate [Feosol 325 MG tab] 325 mg PO QDAY 60 Days #100 tablet MDD 3 labetaloL [Labetalol 200mg TAB] 400 mg PO 0400,1200,2000 60 Days #60 tablet Furosemide [Lasix TAB] 20 mg PO QDAY 14 Days #14 tablet MDD 1 Ibuprofen [Motrin] 600 mg PO Q8H PRN #60 tablet PRN Reason: Pain Ibuprofen [Motrin 800 MG tab] 800 mg PO Q6H PRN 30 Days #60 tablet PRN Reason: Pain, Moderate (4-6) oxyCODONE /ACETAMINOPHEN [Percocet 5/325] 1 tab PO Q6HR PRN #20 tablet PRN Reason: Pain
--- NOTE | 2020-11-23 14:49 | Progress Note ---
Assessment and Plan -- Respiratory distress, resolved due to flash pulmonary edema from acute diastolic heart failure related to preeclampsia Patient had significant history of preeclampsia. She is status post section. CT angiogram done was negative for pulmonary embolism. Findings however were concerning for pulmonary edema versus pneumonia. Patient started on diuretics and empiric IV antibiotics. 2D echo showed preserved EF Lasix now discontinued, may also can stop antibiotics -- PIH ( induced hypertension) We will continue on current antihypertensives and monitor vital signs closely. Patient currently on p.o. labetalol, Procardia and IV hydralazine as needed. -- Preeclampsia Patient being managed by the primary team. She has received magnesium sulfate. --Anemia, h/h stable, cont to follow -- DVT prophylaxis Patient currently on sequential compression device. --Patient appears medically to be stable. Discharge planning per [employer] --Plan for discharge today --Please follow-up with PCP in 1 week following discharge --Monitor BP daily Subjective Date of service: 11/23/20 Principal diagnosis: S/P primary classical cearean section; preeclampsia Interval history: Patient seen and examined. Medical records and medication list reviewed. No acute event overnight noted by the RN. Patient denies any chest pain or difficulty breathing. Patient is tolerating diet. Patient is resting and waiting for discharge Objective - Exam Narrative Exam: GENERAL: well-developed obese female appeared to be in no discomfort. HEENT: Normocephalic. Atraumatic. No conjunctival congestion or icterus. Patient has moist mucous membranes. NECK: Supple. Trachea midline. CHEST/LUNGS: Clear to auscultated bilaterally, breathing nonlabored. No wheezes crackles or rhonchi. HEART/CARDIOVASCULAR: Regular in rate and rhythm. S1 and S2 positive. ABDOMEN: Abdomen is soft, nontender. Patient has normal bowel sounds. SKIN: There is no rash. Warm and dry. NEURO: No focal motor deficit. Follows command. MUSCULOSKELETAL: No joint effusion or tenderness. EXTRIMITY: No edema, no cyanosis or clubbing. PSYCH: Cooperative. - Constitutional Vitals: Vital Signs - 12hr 11/23/20 11/23/20 03:38 08:40 Temperature 98.2 F Pulse Rate 72 74 Respiratory 18 Rate Blood Pressure 119/68 127/76 O2 Sat by Pulse 93 Oximetry - Labs CBC & Chem 7: 11/21/20 04:11 11/21/20 04:11
== END 2020-11-23 11:30 | disposition home or self-care (01) | DRG 786 ==
LOC: TRG 11:57 → APU 11:58 → TRG 14:11 → OBSVTOIN 14:29 → APU 14:29 → LD 17:24 → OB 11-21 11:42
PROC: 10D00Z1 Extraction of Products of Conception, Low, Open Approach (ICD-10-PCS; principal; 2020-11-19)
DX: O14.94 Unspecified pre-eclampsia, complicating childbirth (principal); J96.01 Acute respiratory failure with hypoxia; I50.31 Acute diastolic (congestive) heart failure; Z20.822 Contact with and (suspected) exposure to COVID-19; O76 Abnormality in fetal heart rate and rhythm complicating labor and delivery; O32.1XX0 Maternal care for breech presentation, not applicable or unspecified; O13.4 Gestational [pregnancy-induced] hypertension without significant proteinuria, complicating childbirth; O99.02 Anemia complicating childbirth; O99.53 Diseases of the respiratory system complicating the puerperium; O89.1 Cardiac complications of anesthesia during the puerperium; Z37.0 Single live birth; Z3A.29 29 weeks gestation of pregnancy; Z83.3 Family history of diabetes mellitus
CPT/HCPCS: 36415; 71275; 76815; 76816; 76819; 76820; 80053; 81001; 82565; 82570; 82962; 83615; 83735; 84156; 84450; 84460; 84550; 85014; 85018; 85025; 85027; 86850; 86900; 86901; 86920; 88305; 93005; 93306; 99211; G0378; G0463; J0360; J0690; J0696; J0702; J1885; J1940; J2274; J2370; J2405; J2765; J3475; J3490; J7120; J7121; Q0177; Q9967; U0003